=== PATIENT | male | born 1960 | race Two or more races ===

== ENCOUNTER → 2023-01-05 09:38 | Outpatient (BNVA) | payer MEDICARE, MEDICAID, SELFPAY | PROVIDERS: PCP Family Medicine; Visit Provider Internal Medicine | DX: G47.33 Obstructive sleep apnea (adult) (pediatric) (principal); E66.01 Morbid (severe) obesity due to excess calories; Z68.41 Body mass index [BMI] 40.0-44.9, adult; J98.4 Other disorders of lung; R06.09 Other forms of dyspnea | CPT/HCPCS: 99202 ==

== ENCOUNTER → 2023-02-03 12:29 | Outpatient (REF) | payer MEDICARE, MEDICAID, SELFPAY | LOC: HO.SL 12:29 | PROVIDERS: PCP Family Medicine; Visit Provider Internal Medicine | DX: G47.33 Obstructive sleep apnea (adult) (pediatric) (principal); E66.01 Morbid (severe) obesity due to excess calories | CPT/HCPCS: 95806 ==

== ENCOUNTER → 2023-03-04 10:35 | Outpatient (BNVA) | payer MEDICARE, MEDICAID, SELFPAY | PROVIDERS: PCP Family Medicine; Visit Provider Internal Medicine | DX: G47.33 Obstructive sleep apnea (adult) (pediatric) (principal); J98.4 Other disorders of lung; J30.9 Allergic rhinitis, unspecified; E66.01 Morbid (severe) obesity due to excess calories; Z68.41 Body mass index [BMI] 40.0-44.9, adult | CPT/HCPCS: 99212 ==

== ENCOUNTER 2023-05-06 09:37 | Outpatient (AMB) | payer MEDICARE, MEDICAID, SELFPAY ==
--- NOTE | 2023-05-06 09:38 | MHC.OFFVIS ---
Intake Vital Signs 05/06/23 09:39 Height 5 ft 6 in Weight 259 lb 0.69 oz BMI 41.8 BP 148/80 H Blood Pressure Location Lt brachial Position Sitting Pulse 69 Pulse Source Pulse Oximeter Pulse Oximetry (%) 93 Oxygen Delivery Method Room Air Intake Visit Reasons: Obstructive sleep apnea Intake Note: Pt reports having the flu as he tested negative for covid. He has a dry cough accompanied by chest pain but denies wheezing. He is currently taking NyQuil and Tamiflu. Allergies No Known Allergies Allergy (Verified 05/06/23 10:00) Medication List - Last Reconciled 05/06/23 by Cathie Murray MD albuterol sulfate 2.5 mg inhalation Q4-6H PRN amlodipine 5 mg PO DAILY aspirin (Adult Aspirin Regimen) 81 mg PO DAILY atorvastatin 10 mg PO BEDTIME fluticasone propionate 50 mcg/actuation (Flonase Allergy Relief) 1 spray intranasal BID losartan 100 mg PO DAILY Do you need a note to return to daycare/school/sports/work: No HPI Obstructive sleep apnea HPI Details THIS 63 YEARS OLD VERY PLEASANT GENTLEMAN IS HERE FOR FOLLOW-UP AFTER STARTING ON THE CPAP. HE HAS BEEN USING IT VERY REGULARLY BUT ONLY FOR 4-5 HOURS PER NIGHT. HE CLAIMS THAT HE IS DEFINITELY SLEEPING BETTER. HAS NO ISSUES WITH THE MASK. OR CPAP DEVICE CURRENTLY SUFFERING FROM FLU SYMPTOMS FOR THE LAST FEW DAYS AND HE IS ON SYMPTOMATIC TREATMENT, COVID TEST TURNED OUT TO BE NEGATIVE. HE DOES HAVE HISTORY OF ALLERGIC RHINITIS AND HAS USED FLONASE P.R.N. FOR NASAL ALLERGIES. DENIES ANY WHEEZING BUT DOES HAVE SOME COUGH AND IS USING [facility] Medical History (Updated 05/06/23 @ 10:05 by Cathie Murray MD) Allergic rhinitis PRAJAPATI (dyspnea on exertion) Morbid obesity RO (obstructive sleep apnea) Restrictive lung disease Social History Patient Tobacco Use Status: Former Tobacco user Review of Systems Const All systems reviewed & are unremarkable except as noted in HPI and below Eyes Reports no additional complaints ENT Reports nasal congestion (MILD INTERMITTENT) Card Denies irregular heart rhythm and Denies leg edema Resp Reports as per HPI GI Reports no additional complaints Reports no additional complaints Musc Reports no additional complaints Skin/Breast Reports system reviewed and no additional complaints, except as documented Neuro Reports no additional complaints Psych Reports no additional complaints Endo Reports no additional complaints Lalito/Lymph Reports no additional complaints Aller/Immun Reports no additional complaints Physical Exam Vital Signs: Last Vital Signs Pulse 69 05/06/23 09:39 BP 148/80 H 05/06/23 09:39 Pulse Ox 93 05/06/23 09:39 Oxygen Delivery Method Room Air 05/06/23 09:39 BMI result Body Mass Index 41.8 Const Other: He is grossly overweight General: comfortable, no acute distress, alert and awake Orientation/consciousness: patient oriented x3 HEENT Head: Yes normal to inspection General nose exam: No nasal polyps present, No nasal discharge present and Other nasal findings present (HAS MILD NASAL CONGESTION) Face and sinus: Yes sinuses nontender Mouth: oropharynx abnormals (Oropharynx is very narrow and crowded, Mallampati class 4) Throat: Yes posterior oropharynx normal Eyes General: appearance normal, both eyes and all related structures Neck Neck: Yes normal visual inspection, Yes no lymphadenopathy, Yes trachea midline, Yes no JVD and Yes other (Neck circumference 18-1/2 inch) Thyroid: Thyroid normal Chest Chest palpation & inspection: normal inspection of the chest, normal palpation of entire chest wall and no tenderness Resp Other: Chest wall is quite thick, percussion note is not very perceptible. Breath sounds are somewhat distant. But no wheezes crepitations or rhonchi are heard. Cardio Palpation: normal PMI Rate: regular rate Rhythm: regular rhythm Heart sounds: no gallops and no murmurs Peripheral pulses: Peripheral pulses 2+ throughout GI Palpation (GI): Soft to palpation, Tenderness to palpation present (GI), No hepatosplenomegaly present, Palpable mass present and Other GI palpation findings present (Abdomen is obese and protuberant) Auscultation: normal bowel sounds Back/Spine/Pelvis Thoracic/Lumbar Spine: thoracic and lumbar spine normal to inspection and thoraco-lumbar ROM limited Skin General skin exam: no rashes or lesions noted Neuro General: patient oriented x3 and no focal motor deficits Cranial nerves: Yes CN's II-XII intact bilaterally Extrem General: Yes normal to inspection, Yes no clubbing, cyanosis or edema and Yes no calf tenderness Psych Appearance: grossly normal and well kempt Speech and movement: Normal speech and movement present Results Reviewed Results Reviewed: COMPLIANCE REPORT REVIEWED AND HE HAS USED 27/30 NIGHTS, 90%. AVERAGE USE PER NIGHT IS 4 HOURS 23 MINUTES. 95TH PERCENTILE PRESSURE USED 9.6. NO AIR LEAK. RESIDUAL AHI 2.2 MUCH IMPROVED Assessment & Plan Assessment & Plan (1) RO (obstructive sleep apnea): Comment: PATIENT IS USING CPAP GOOD COMPLIANCE AND IS BENEFITING. ADVISED TO USE IT FOR 5-6 HOURS EVERY NIGHT. Code(s): G47.33 - Obstructive sleep apnea (adult) (pediatric) (2) Morbid obesity: Comment: BMI 41.8 HIS UNDERSTANDING ABOUT THE DIET AND EXERCISE IS POOR, AGAIN I EXPLAINED TO HIM ABOUT DIET, TO REDUCE THE USE OF CARBOHYDRATES AND TO CUT DOWN THE PORTION. I ALSO STRESS THAT HE SHOULD START WALKING UP TO 2 MILES EVERY DAY. Code(s): E66.01 - Morbid (severe) obesity due to excess calories (3) Allergic rhinitis: Comment: IT IS MILD AND SEEMS TO BE CONTROLLED WITH USE OF FLONASE 2 SPRAY EACH NOSTRIL DAILY CURRENTLY HE IS RECOVERING FROM ACUTE VIRAL. UPPER RESPIRATORY INFECTION Code(s): J30.9 - Allergic rhinitis, unspecified Coding Level of Care Code Est Pt Level 3 (96474) Diagnoses RO (obstructive sleep apnea) G47.33 Morbid obesity E66.01 Allergic rhinitis J30.9
[2023-05-06 09:39] VITALS: BP 148/80; PULSE 69; O2SAT 93; BMI 41.8
== END 2023-05-06 10:01 | disposition home or self-care (01) ==
PROVIDERS: PCP Family Medicine; Visit Provider Internal Medicine
DX: G47.33 Obstructive sleep apnea (adult) (pediatric) (principal); E66.01 Morbid (severe) obesity due to excess calories; J30.9 Allergic rhinitis, unspecified
CPT/HCPCS: 99213

== ENCOUNTER → 2023-05-06 09:37 | Outpatient (BNVA) | payer MEDICARE, MEDICAID, SELFPAY | PROVIDERS: PCP Family Medicine; Visit Provider Internal Medicine | DX: G47.33 Obstructive sleep apnea (adult) (pediatric) (principal); J30.9 Allergic rhinitis, unspecified; E66.01 Morbid (severe) obesity due to excess calories; Z68.41 Body mass index [BMI] 40.0-44.9, adult | CPT/HCPCS: 99212 ==

== ENCOUNTER 2023-11-12 11:03 | Outpatient (REF) | payer MEDICARE, MEDICAID, SELFPAY ==
--- NOTE | ~2023-11-12 | XR_ITS ---
EXAMINATION: XR CHEST CLINICAL INFORMATION: Cough for 6 weeks, rales and swelling COMPARISON: None available. TECHNIQUE: 2 views of the chest were obtained. FINDINGS: No significant abnormality is noted involving the heart, lungs, mediastinum, bony thorax or soft tissues. XR/XR chest 2V IMPRESSION: Unremarkable examination.
[2023-11-12 13:47] LABS: Alanine Aminotransferase 44 U/L (0-40); Albumin Level 4.4 g/dL (3.5-5.0); Alkaline Phosphatase 68 U/L (39-117); Anion Gap 12 (12-20); Aspartate Amino Transferase 23 U/L (5-37); Bilirubin Total 1.5 mg/dL (0.0-1.0); Blood Urea Nitrogen 12 mg/dL (9-16); Calcium 9.6 mg/dL (8.4-10.2); Carbon Dioxide 27 mmol/L (22-29); Chloride 105 mmol/L (96-108); Cholesterol 167 mg/dL (<200); Estimated Glomerular Filt Rate > 60; Glucose Random 123 mg/dL (60-115); HDL Cholesterol 37 mg/dL (>40); LDL Cholesterol Calculated 101 mg/dL (<100); Potassium 3.5 mmol/L (3.3-5.1); Sodium 140 mmol/L (135-145); Total Protein 7.9 g/dL (6.5-8.0); Triglycerides 147 mg/dL (<150)
[2023-11-12 14:09] LABS: TSH reflex Free T4 2.48 uIU/mL (0.32-4.0)
[2023-11-12 14:11] LABS: Reflex LDLD? No
== END 2023-11-12 11:04 | disposition home or self-care (01) ==
LOC: HO.HHCL 11:03
PROVIDERS: Visit Provider Family Medicine
DX: I10 Essential (primary) hypertension (principal); E78.5 Hyperlipidemia, unspecified; E66.01 Morbid (severe) obesity due to excess calories; R05.2 Subacute cough; Z68.41 Body mass index [BMI] 40.0-44.9, adult
CPT/HCPCS: 36415; 71046; 80053; 80061; 84443

== ENCOUNTER 2024-05-19 10:43 | Outpatient (REF) | payer MEDICARE, MEDICAID, SELFPAY ==
[2024-05-19 11:33] LABS: Appearance Urine Clear; Color Urine Yellow; Glucose Urine UA Negative (Negative); Leukocyte Esterase Urine Moderate (2+) (Negative); Nitrite Urine Positive (Negative); PH 6.5 (5.0-9.0); Specific Gravity - Urine 1.015 (1.005-1.025); UMIC TRIGGER UACC YES; Urine Blood Moderate (2+) (Negative); Urine Ketones Negative (Negative); Urine Protein Negative (Neg-Trace)
[2024-05-19 11:50] LABS: Bacteria Urine None Seen (None Seen); Hyaline Casts Urine 0-2 /LPF (0-2); Squamous Epithelial Cell Urine 0-2 /HPF (0-2); UACC Culture Trigger YES
[2024-05-19 12:20] LABS: Estimated Average Glucose 114 mg/dL; Hemoglobin A1c % 5.6 % (<6.0)
[2024-05-19 12:46] LABS: Alanine Aminotransferase 45 U/L (0-40); Albumin Level 4.4 g/dL (3.5-5.0); Alkaline Phosphatase 64 U/L (39-117); Aspartate Amino Transferase 21 U/L (5-37); Bilirubin Direct 0.3 mg/dL (0.0-0.5); Total Protein 7.5 g/dL (6.5-8.0)
[2024-05-19 12:58] LABS: Prostate Specific Antigen Scr 0.92 ng/mL (<0.05-4.0); ~HepC Num1 0.11 S/CO (0.00-0.79); ~Hepatitis C Antibody Nonreactive (Nonreactive)
[2024-05-19 13:00] LABS: Hepatitis A Antibody IgG REACTIVE (Nonreactive); ~Hepatitis A Antibody IgG 11.75 S/CO (0.00-0.99)
== END 2024-05-19 10:44 | disposition home or self-care (01) ==
LOC: HO.HHCL 10:43
PROVIDERS: Visit Provider Family Medicine
DX: R73.01 Impaired fasting glucose (principal); R74.8 Abnormal levels of other serum enzymes; R35.0 Frequency of micturition; Z12.5 Encounter for screening for malignant neoplasm of prostate
CPT/HCPCS: 36415; 80076; 81001; 83036; 84153; 86708; 86803; 87086

== ENCOUNTER 2024-06-06 09:16 | Outpatient (AMB) | payer MEDICARE, SELFPAY ==
--- NOTE | 2024-06-06 09:19 | A.OFFVIS_ITS ---
Vital Signs 06/06/24 09:23 Height 5 ft 6 in Weight 264 lb BMI 42.6 Intake Visit Reasons: Mass/Lipoma on back Intake Note: Patient referred by pcp Dr. Payne for lipoma on back. Patient c/o: reports pain. Technical Administrative Assistant Required: Yes Technical Administrative Assistant Language: Swedish Information Interpreted: non-clinical & clinical Accompanied by: Self / Same As Patient Allergies No Known Allergies Allergy (Verified 06/06/24 09:24) Medication List - Last Reconciled 06/06/24 by Dane Bernal MD albuterol sulfate 2.5 mg inhalation Q4-6H PRN amlodipine 5 mg PO DAILY aspirin (Adult Aspirin Regimen) 81 mg PO DAILY atorvastatin 10 mg PO BEDTIME fluticasone propionate 50 mcg/actuation (Flonase Allergy Relief) 1 spray intranasal BID losartan 100 mg PO DAILY HPI Comments Details: Patient presents for evaluation of right flank discomfort. He has had a lipoma in this area in the past and thinks he has an under lipoma. He has not felt a distinct mass per se but just has an area of discomfort in the right lateral flank/back. No other issues or complaints. As noted above, patient has had lipoma excisions in the past. In fact he has a lipoma of left forearm as well which you would like to have addressed. Chart was reviewed and patient evaluated [facility] Medical History Allergic rhinitis RO (obstructive sleep apnea) Restrictive lung disease PRAJAPATI (dyspnea on exertion) Morbid obesity Social History Patient Tobacco Use Status: Former Tobacco user Physical Exam Vital Signs: BMI result Body Mass Index 42.6 Back/Spine/Pelvis Other: Patient has a scar in the right lower flank area from prior lipoma excision. He has discomfort more superior and medial were he thinks he has an other lipoma although none was palpated. Patient is rather corpulent. Extrem Other: Patient has roughly 3 x 2 cm lipoma involving dorsal aspect of the left mid forearm. Assessment & Plan Assessment & Plan (1) Abdominal wall mass of right flank: Code(s): R19.00 - Intra-abdominal and pelvic swelling, mass and lump, unspecified site Category: Surgical (2) Lipoma of upper arm: Code(s): D17.20 - Benign lipomatous neoplasm of skin and subcutaneous tissue of unspecified limb Category: Surgical Plan Current plan is to obtain an ultrasound of the right flank area and direct further therapy based on these results. Patient will see me after this. We will also address his forearm lipoma at that time. All questions answered. Patient will see me as noted above or p.r.n.. Orders: Orders US drain soft tissue w imaging Today R19.00 - Intra-abdominal and pelvic swelling, mass and lump, unspecified site Coding Level of Care Code New Pt Level 4 (56882) Diagnoses Abdominal wall mass of right flank R19.00 Lipoma of upper arm D17.20
[2024-06-06 09:23] VITALS: BMI 42.6
== END 2024-06-06 09:43 | disposition home or self-care (01) ==
PROVIDERS: PCP Family Medicine; Visit Provider Surgery
DX: R19.00 Intra-abdominal and pelvic swelling, mass and lump, unspecified site (principal); D17.20 Benign lipomatous neoplasm of skin and subcutaneous tissue of unspecified limb
CPT/HCPCS: 99203

== ENCOUNTER → 2024-06-06 09:16 | Outpatient (BNVA) | payer MEDICARE, SELFPAY | PROVIDERS: PCP Family Medicine; Visit Provider Surgery | DX: R19.00 Intra-abdominal and pelvic swelling, mass and lump, unspecified site (principal); D17.22 Benign lipomatous neoplasm of skin and subcutaneous tissue of left arm | CPT/HCPCS: 99202 ==

== ENCOUNTER 2024-10-18 11:21 | Outpatient (REF) | payer MEDICARE, SELFPAY ==
--- NOTE | ~2024-10-18 | US_ITS ---
CLINICAL HISTORY: R19.00 - Intra-abdominal and pelvic swelling, mass and lump, unspecified... Exam: Ultrasound of the abdomen limited. Comparison: None. Findings: Patient has a palpable mass along the right flank. Focused ultrasound examination of this area was performed. Ultrasound demonstrates 2 adjacent rounded echogenic foci within the subcutaneous fat measuring 6 x 5 x 7 mm and 9 x 3 x 3 mm in size, respectively. No hyperemia. No significant posterior acoustic shadowing. Impression: Nonspecific rounded echogenic foci within the subcutaneous fat corresponding to the patient's palpable abnormality. These could represent areas of fat necrosis, scarring with calcification, or small lipomas. Continued attention on follow-up physical examination suggested. This document has been electronically signed by: Carlos Enrique Pham MD on 10/19/2024 05:40:56
== END 2024-10-18 11:22 | disposition home or self-care (01) ==
LOC: HO.US 11:21
PROVIDERS: PCP Family Medicine; Visit Provider Surgery
DX: R19.03 Right lower quadrant abdominal swelling, mass and lump (principal)
CPT/HCPCS: 76705

== ENCOUNTER → 2024-10-18 11:25 | Outpatient (BNV) | payer MEDICARE, SELFPAY | PROVIDERS: PCP Family Medicine; Visit Provider Radiology Diagnostic Radiology | DX: R19.00 Intra-abdominal and pelvic swelling, mass and lump, unspecified site (principal) | CPT/HCPCS: 76705 ==

== ENCOUNTER 2024-10-25 11:28 | Outpatient (AMB) | payer MEDICARE, SELFPAY ==
--- NOTE | 2024-10-25 11:30 | MHC.OFFVIS ---
Intake Visit Reasons: Discuss Abd/ US Intake Note: Patient here to discuss recent Abd US results. Patient c/o: lipoma on Rt lower back that causes pain as it has been enlarging. Abd US: 10-18-2024 Supervisor Cigarette Making Department Required: Yes Supervisor Cigarette Making Department Services: Supervisor Cigarette Making Department Present Accompanied by: Self / Same As Patient Allergies No Known Allergies Allergy (Verified 10/25/24 11:33) HPI Comments Details: Patient presents for follow-up status post ultrasound over suspicious area mid back. This confirmed clinical suspicion of a large lipoma. [facility] Medical History Allergic rhinitis RO (obstructive sleep apnea) Restrictive lung disease PRAJAPATI (dyspnea on exertion) Morbid obesity Social History Patient Tobacco Use Status: Former Tobacco user Physical Exam Back/Spine/Pelvis Other: Back exam is status quo. Right mid back fullness is confirmed to be lipoma by recent ultrasound Assessment & Plan Assessment & Plan (1) Lipoma of back: Code(s): D17.1 - Benign lipomatous neoplasm of skin and subcutaneous tissue of trunk Category: Surgical Plan Patient was like to have this excised. Because of other obligations, he would like to reschedule this to have it performed in the office. Arrangements were made for this. All questions answered. See me as directed or p.r.n.. Coding Level of Care Code Est Pt Level 4 (34285) Diagnoses Lipoma of back D17.1
--- OUTSIDE RECORDS SUMMARY | 2024-10-25 12:44 | XMS_ITS | Encounter Summary ---
Author Organization [facility] Address [address] [facility] [address] [place] [address] Care Team Providers Care Community Living Specialist Name Role Phone Phylicia Payne MD Primary Care Provider [phone] Jt Vazquez PharmD Unavailable [phone] Encounter Details Date Type Department Care Team (Late st Contact Info) Description 05/25/2024 Orders Only [facility] [address], [place] [phone] Phylicia Payne MD [address], [place] [phone] Hematuria, unspecified type (Primary Dx); Pyuria; Essential hypertension Social History Tobacco Use Types Packs/Day Years Used Date Smoking Tobacco: Former Cigarettes Passive Smoke Exposure: Past Smokeless Tobacco: Never Depression Answer Date Recorded Patient Health Questionnaire-9 Score 0 05/19/2024 Patient Health Questionnaire-9 Score 0 05/19/2024 Last PHQ-9: Questionnaire Data Not on file 0 05/19/2024 Housing Stability Answer Date Recorded What is your housing situation today? I have supa mclean 02/09/[address] you li ve. Do you have problems with any of the following? None of the above 02/09/2024 Food Insecurity Answer Date Recorded Within the past 12 months, y ou worried that your food would run out before you got money to buy more: Never True 02/09/2024 Within the past 12 months,th e food you bought just didn't last and you didn't have enough money to get more: Never True Transportation Answer Date Recorded In the past 12 months, has l ack of transportation kept you from medical appts, meetings, work or from getting things needed for daily living? No 02/09/2024 Utilities Answer Date Recorded In the past 12 months, has t he electric, gas, oil or water company threatened to shut off services in your home? No 02/09/2024 Depression Answer Date Recorded Patient Health Questionnaire-2 Score 0 05/19/2024 Sex and Gender Information Value Date Recorded Sex Assigned at Male 07/28/2022 10:18 AM EDT Legal Sex Male 10:18 AM EDT Gender Identity Male 07/28/2022 10:18 AM EDT Sexual Orientation Straight 07/28/2022 10 :18 AM EDT documented as of this encounter Plan of Treatment Scheduled Orders Name Type Priority Associated Diagnoses Orde r Schedule Albumin, Random Urine W/Creatinine Lab Routine Essential hypertension Expected: 05/25/2024 (Approximate), Expires: 05/25/2025 Urinalysis, Complete, with Reflex to Culture Lab Routine Hematuria, unspecified type Pyuria Expected: 05/25/2024 (Approximate), Expires: 05/25/2025 documented as of this encounter Goals Goal Patient Goal Type Associated Problems Recent Progress Patient-Stated? Author Blood Pressure < 150/90 Blood Pressure 158/99(2023 9:53 AM EDT) No Jt Vazquez, Alyce Note: Per JNC-8 62 year old patient without DM or CKD documented as of this encounter Visit Diagnoses Diagnosis Hematuria, unspecified type- Primary Pyuria Other nonspecific finding on examination of urine Essential hypertension Unspecified essential hypertension documented in this encounter Additional Health Concerns Assessment Noted Time PHQ-9 Depression Total Score: 0 05/19/20 24 10:03 AM EDT documented as of this encounter Care Teams Community Living Specialist Relationship Specialty Start Date End Date Phylicia Payne MD [address] [place] [address] PCP - General Family Medicine 09/28/18 Jt Vazquez, ShaiD [address] [place] [address] Pharmacist Internal Medicine 01/26/23 documented as of this encounter
--- OUTSIDE RECORDS SUMMARY | 2024-10-25 12:44 | XMS_ITS | Encounter Summary ---
Author Organization [facility] Address [address] [facility] [address] [place] [address] Care Team Providers Care [place] [place] Name Role Phone Phylicia Payne MD Primary Care Provider [phone] Jt Vazquez PharmD Unavailable [phone] Reason for Visit * Reason Comments Med Refill Encounter Details Date Type Department Care Team (Late st Contact Info) Description 02/19/2024 Refill [facility] [address] [place], [place] [phone] Phylicia Payne MD [address], [place] [phone] Dyslipidemia Social History Tobacco Use Types Packs/Day Years Used Date Smoking Tobacco: Former Cigarettes Passive Smoke Exposure: Past Smokeless Tobacco: Never Depression Answer Date Recorded Patient Health Questionnaire-9 Score 0 02/09/2024 Patient Health Questionnaire-9 Score 0 02/09/2024 Last PHQ-9: Questionnaire Data Not on file 0 02/09/2024 Housing Stability Answer Date Recorded What is [...] Date Recorded Patient Health Questionnaire-2 Score 0 02/09/2024 Sex and Gender Information Value Date Recorded Sex Assigned at Male 07/28/2022 10:18 AM EDT Legal Sex Male 10:18 AM EDT Gender Identity Male 07/28/2022 10:18 AM EDT Sexual Orientation Straight 07/28/2022 10 :18 AM EDT documented as of this encounter Plan of Treatment Not on file documented as of this encounter Goals Goal Patient Goal Type Associated Problems Recent Progress Patient-Stated? Author Blood Pressure < 150/90 Blood Pressure 158/99(2023 9:53 AM EDT) No Jt Vazquez, Alyce Note: Per JNC-8 62 year old patient without DM or CKD documented as of this encounter Visit Diagnoses Diagnosis Dyslipidemia Other and unspecified hyperlipidemia documented in this encounter Additional Health Concerns Assessment Noted Time PHQ-9 Depression Total Score: 0 02/09/20 24 10:12 AM EDT documented as of this encounter Care Teams [employer] [place] Relationship Specialty Start Date End Date Phylicia Payne MD [address] [place] [address] PCP - General Family Medicine 09/28/18 Jt Vazquez, Alyce [address] [place] [address] Pharmacist Internal Medicine 01/26/23 documented as of this encounter
--- OUTSIDE RECORDS SUMMARY | 2024-10-25 12:44 | XMS_ITS | Clinical Summary ---
Author Organization [facility] Address [address] [place] [address] Care Team Providers Care Redipper Name Role Phone Phylicia Payne MD Primary Care Provider [phone] Jt Vazquez PharmD Unavailable [phone] Allergies Active Allergy Reactions Criticality Noted Date Comments Jordan Inhibitors 09/26/2010 Other reaction(s): unspecified Medications albuterol (2.5 MG/3ML) 0.083% nebulizer solutionIndicatio ns:Moderate persistent asthma without complication Take 1 vial by nebulizer every 4 hours as needed for difficulty breathing 75 mL 3 3 Active aspirin 81 MG EC tablet Purchases OTC - 1 tablet daily Active albuterol 108 (90 Base) MCG/ACT inhalerIndication s:Moderate persistent asthma without complication Inhale 2 puffs every 4 (four) hours if needed for wheezing or shortness of breath. 18 g 1 4 Active budesonide-formot alem (Symbicort) 160-4.5 MCG/ACT inhaler Inhale 2 puffs in the morning and at bedtime. Rinse mouth with water after use to reduce aftertaste and incidence of candidiasis. Do not swallow. 1 each 11 4 11/11/19 25 Active atorvastatin (Lipitor) 10 MG tabletIndications :Dyslipidemia Take 1 tablet by mouth at bedtime 90 tablet 3 4 Active losartan (Cozaar) 100 MG tabletIndications :Essential hypertension TAKE 1 TABLET BY MOUTH ONCE DAILY 90 tablet 3 4 Active torsemide (Demadex) 10 MG tablet Take 1 tablet (10 mg) by mouth Once per day. 90 tablet 3 4 05/19/20 25 Active amLODIPine (Norvasc) 5 MG tabletIndications :Essential hypertension TAKE 1 Tablet BY MOUTH EVERY DAY 90 tablet 3 4 Active Active Problems Problem Noted Date Diagnosed Date Mass on back 05/19/2024 Assessment & Plan (05/19/2024 10:38 AM EDT): - history of multiple lipoma - will refer to general surgeon for excisional biopsy BPPV (benign paroxysmal positional vertigo) 06/28 Vertigo 06/08/2023 Assessment & Plan (07/09/2023 9:20 AM EDT): - BPPV - improved Assessment & Plan (06/08/2023 6:48 PM EDT): Pt w symptoms of vertigo Here + [place] c[place] pick maneuver today w normal neuro exam -CT head w/o contrast 04/2023: unchanged small area of exostosis at right frontal calvarium , minimal mucosal thickening of ethmoid air cells ,ophthalmic prominent veins , no acute intracranial pathology -CTA Head and neck 04/2023: no proximal occlusion or high grade stenosis in The major arteries of head and neck -Orthostatic VS are neg and normal BP -CBG is wnl today -noted from recent labs done at hospital on 04/2023 Had wnl chem and CBC -referred today to ophthalmology for noted in CT scan dilated ophthalmic vein - but w normal CTA head and neck -referred today to ENT for ongoing symptoms and tinnitus reported as chronic and TM with chronic changes -referred today to PT for vestibular tx -discussed w pt about head exercises -Gianna maneuvers to do at home -showed pt how to perform with a video -Meclizine prn -alarm signs and symptoms discussed and if symptoms persist will consider brain MRI Dyslipidemia 10/28/2022 Assessment & Plan (02/09/2024 10:16 AM EDT): -12/30/22 TC 156; TG 123; HDL 42; LDL 92 -Current medication: Atorvastatin 10mg at bedtime (moderate intensity statin per guideline) -continue working on lifestyle modifications prn Assessment & Plan (11/14/2023 7:08 AM EST): -12/30/22 TC 156; TG 123; HDL 42; LDL 92 -Current medication: Atorvastatin 10mg at bedtime (moderate intensity statin per guideline) -continue working on lifestyle modifications prn Assessment & Plan (07/09/2023 9:22 AM EDT): -12/30/22 TC 156; TG 123; HDL 42; LDL 92 -Current medication: Atorvastatin 10mg/QHS. -continue working on lifestyle modifications prn Assessment & Plan (10/28/2022 4:13 PM EST): -11/03/19: TC 178 TG 95 HDL 42 LDL 117. -Current medication: Atorvastatin 10mg/QHS. -will continue current treatment for now. -Atorvastatin may be increased if HTN, T2DM become uncontrolled. Essential hypertension 08/07/2015 Assessment & Plan (05/19/2024 10:36 AM EDT): -Goal BP < 150/90 per JNC-8, <130/80 per ACC/AHA -Co-managed with our pharmacist through [facility] -BP not at goal today -EKG normal in Aug 2017. -ACS work-up negative in Aug 2017 at [facility]. -Normal stress test in Oct 2017 -Currently using CPAP for RO. -Discussed about the importance of lifestyle modification and medication adherence. -Check BP at home -Continue losartan 100 mg daily. -Decrease amlodipine to 5 mg daily due to leg edema -Increase torsemide to 10 mg daily -Continue ASA 81 mg daily -Follow up in 3 mo or sooner if any problem arises Assessment & Plan (02/09/2024 10:32 AM EDT): -Goal BP < 150/90 per JNC-8, <130/80 per ACC/AHA -Co-managed with our pharmacist through [facility] -BP not at goal today -EKG normal in Aug 2017. -ACS work-up negative in Aug 2017 at [facility]. -Normal stress test in Oct 2017 -Currently using CPAP for RO. -Discussed about the importance of lifestyle modification and medication adherence. -Check BP at home -Continue losartan 100 mg daily. -Continue amlodipine 10 mg daily (mild side effect, but tolerable) -Continue torsemide 5 mg daily, recommended to increase to 10 mg daily if his systolic BP at home is persistently above 140 -Continue ASA 81 mg daily -Follow up in 3 mo or sooner if any problem arises Assessment & Plan (11/14/2023 7:05 AM EST): -Goal BP < 150/90 per JNC-8, <130/80 per ACC/AHA -Co-managed with our pharmacist through [facility] -BP not at goal today -EKG normal in Aug 2017. -ACS work-up negative in Aug 2017 at [facility]. -Normal stress test in Oct 2017 -Currently using CPAP for RO. -Discussed about the importance of lifestyle modification and medication adherence. -Check BP at home -Continue losartan 100 mg daily. -Continue amlodipine 10 mg daily (mild side effect, but tolerable) -Add torsemide 5 mg daily -Continue ASA 81 mg daily -Follow up in 3 mo or sooner if any problem arises Assessment & Plan (07/09/2023 9:06 AM EDT): -Goal BP < 150/90 per JNC-8, <130/80 per ACC/AHA -BP not at goal today -EKG normal in Aug 2017. -ACS work-up negative in Aug 2017 at [facility]. -Normal stress test in Oct 2017 -Currently using CPAP for RO. -Discussed about the importance of lifestyle modification and medication adherence. -Check BP at home -Continue losartan 100 mg daily. -Continue amlodipine 5 mg daily. -Consider increasing amlodipine or diuretic. -Continue ASA 81 mg daily -Referred to [facility] -Follow up in 3 mo or sooner if any problem arises Assessment & Plan (11/08/2022 7:07 AM EST): -Goal BP < 150/90 per JNC-8, <130/80 per ACC/AHA -BP not at goal today -EKG normal in Aug 2017. -ACS work-up negative in Aug 2017 at [facility]. -Normal stress test in Oct 2017 -Undertreated RO. -Discussed about the importance of lifestyle modification and medication adherence. -discussed about increasing Losartan today, but patient chose to try lifestyle modifications before. -Check BP at home -Continue losartan 100 mg daily. -Continue amlodipine 5 mg daily. -Continue ASA 81 mg daily -Refer to [facility] -Follow up in 3 mo or sooner if any problem arises Asthma 08/07/2015 Assessment & Plan (05/19/2024 10:16 AM EDT): -Last exacerbation requiring steroid use in September 2014, treated outpatient with prednisone -no Hx intubation, -RO -Reviewed maintenance medication and rescue medication. -Discontinue Flovent HFA 220 mcg -Start budesonide / formoterol (Symbicort) -Continue albuterol HFA prn as rescue. -Continue albuterol nebulizer treatment since pt feels better with nebulizer treatment -Overall, his dyspnea seems to be due to untreated RO -Statistics Professor is planning to evaluate him with PFT Assessment & Plan (02/09/2024 10:15 AM EDT): -Last exacerbation requiring steroid use in September 2014, treated outpatient with prednisone -no Hx intubation, -RO -Reviewed maintenance medication and rescue medication. -Discontinue Flovent HFA 220 mcg -Start budesonide / formoterol (Symbicort) -Continue albuterol HFA prn as rescue. -Continue albuterol nebulizer treatment since pt feels better with nebulizer treatment -Overall, his dyspnea seems to be due to untreated RO -Statistics Professor is planning to evaluate him with PFT Assessment & Plan (11/14/2023 7:04 AM EST): -Last exacerbation requiring steroid use in September 2014, treated outpatient with prednisone -no Hx intubation, -RO -Reviewed maintenance medication and rescue medication. -Discontinue Flovent HFA 220 mcg -Start budesonide / formoterol (Symbicort) -Continue albuterol HFA prn as rescue. -Continue albuterol nebulizer treatment since pt feels better with nebulizer treatment -Overall, his dyspnea seems to be due to untreated RO -Statistics Professor is planning to evaluate him with PFT Assessment & Plan (07/09/2023 9:04 AM EDT): -Last exacerbation requiring steroid use in September 2014, treated outpatient with prednisone -no Hx intubation, -RO -Reviewed maintenance medication and rescue medication. -Continue Flovent HFA 220 mcg one puff bid as maintenance. -Continue albuterol HFA prn as rescue. -Continue albuterol nebulizer treatment since pt feels better with nebulizer treatment -Overall, his dyspnea seems to be due to untreated RO -Statistics Professor is planning to evaluate him with PFT Assessment & Plan (11/08/2022 7:05 AM EST): -Last exacerbation requiring steroid use in September 2014, treated outpatient with prednisone -no Hx intubation, -RO -Reviewed maintenance medication and rescue medication. -Continue Flovent HFA 220 mcg one puff bid as maintenance. -Continue albuterol HFA prn as rescue. -Add albuterol nebulizer treatment since pt feels better with nebulizer treatment -Overall, his dyspnea seems to be due to untreated RO -refer to sleep medicine clinic or customs compliance specialist Osteoarthritis of finger 12/28/2014 Tubular adenoma of colon 08/07/2014 Assessment & Plan (11/14/2023 7:07 AM EST): Found in July 2014. Normal in July 2018. Recommended repeat colonoscopy every 5 years. Assessment & Plan (07/09/2023 9:19 AM EDT): Found in July 2014. Normal in July 2018. Recommended repeat colonoscopy every 5 years. Assessment & Plan (10/28/2022 4:18 PM EST): Found in July 2014. Normal in July 2018. Recommended repeat colonoscopy every 5 years. Allergic rhinitis 06/08/2012 Impaired fasting glucose 06/08/2012 Assessment & Plan (05/19/2024 10:17 AM EDT): -12/30/22 A1C 5.6% -Annual screening. -Work on lifestyle modifications. Assessment & Plan (02/09/2024 10:16 AM EDT): -12/30/22 A1C 5.6% -Annual screening. -Work on lifestyle modifications. Assessment & Plan (11/14/2023 7:07 AM EST): -12/30/22 A1C 5.6% -Annual screening. -Work on lifestyle modifications. Assessment & Plan (07/09/2023 9:20 AM EDT): -12/30/22 A1C 5.6% -Annual screening. -Work on lifestyle modifications. Assessment & Plan (10/28/2022 4:14 PM EST): -A1C: 5.6% on 11/03/19. -Annual screening. -Work on lifestyle modifications. Obesity 06/08/2012 Assessment & Plan (05/23/2024 6:09 AM EDT): - lifestyle modifications - consider GLP-1 RA Obstructive sleep apnea syndrome 06/08/2012 Assessment & Plan (05/19/2024 10:16 AM EDT): -sleep study done in Apr 2017, which showed RO and recommended CPAP titration study. -sleep study and CPAP titration study done in May 2018, pressure 13 cm recommended -seen by stone sawyer and was prescribed CPAP again, autoPAP 6-20 cm H2O, last seen in Apr 2023 -continue treatment plan per stone sawyer Assessment & Plan (02/09/2024 10:15 AM EDT): -sleep study done in Apr 2017, which showed RO and recommended CPAP titration study. -sleep study and CPAP titration study done in May 2018, pressure 13 cm recommended -seen by stone sawyer and was prescribed CPAP again, autoPAP 6-20 cm H2O, last seen in Apr 2023 -continue treatment plan per stone sawyer Assessment & Plan (11/14/2023 7:03 AM EST): -sleep study done in Apr 2017, which showed RO and recommended CPAP titration study. -sleep study and CPAP titration study done in May 2018, pressure 13 cm recommended -seen by stone sawyer and was prescribed CPAP again, autoPAP 6-20 cm H2O, last seen in Apr 2023 -continue treatment plan per stone sawyer Assessment & Plan (07/09/2023 9:03 AM EDT): -sleep study done in Apr 2017, which showed RO and recommended CPAP titration study. -sleep study and CPAP titration study done in May 2018, pressure 13 cm recommended -seen by stone sawyer and was prescribed CPAP again, autoPAP 6-20 cm H2O, last seen in Apr 2023 -continue treatment plan per stone sawyer Assessment & Plan (11/08/2022 7:04 AM EST): -sleep study done in Apr 2017, which showed RO and recommended CPAP titration study. -sleep study and CPAP titration study done in May 2018, pressure 13 cm recommended -Pt received CPAP for short term, but had to pay for aditional monthly use. -will refer to sleep medicine clinic Resolved Problems Problem Noted Date Diagnosed Date Resolved Date Asthma 06/08/2012 11/08/2022 Encounters Date Type Department Care Team Description 10/18/2024 Orders Only [facility] External Provider, [facility] 08/08/2024 Telephone [facility] [address] [place] [address] Diane Vasquez [place] august recall from Last 3 Months Immunizations Name Administration Dates Next Due Hep B, Adolescent or Pediatric 05/14/2010,2006,09/25/2006 Influenza Injectable Quadriv alant Preservative Free IIV4 MDCK 06/18/2023,08/31/2020 Influenza injectable quadriv alent IIV4 with preservative 08/07/2015 Influenza injectable quadriv alent preservative free 10/28/2022,08/11/2019 Influenza, IIV3, injectable 07/24/2014, 1 Influenza, Split (incl. gogo fied surface antigen) 06/10/2013,06/08/2012 Pfizer Covid-19 Vaccine 12+ 02/09/2024 Pneumococcal Conjugate PCV 20 03/02/2023 Pneumococcal Polysaccharide PPSV23 05/14/2010 TD (adult), 2 Lf tetanus tox oid, preservative free, adsorbed 11/28/2008 Tdap 07/07/2023,11/28/2011 Zoster, Recombinant 06/18/2023,03/02/2023 Social History Tobacco Use Types Packs/Day Years Used Date Smoking Tobacco: Former Cigarettes Passive Smoke Exposure: Past Smokeless Tobacco: Never Tobacco Cessation:Counseling Given: Not Answered Depression Answer Date Recorded Patient Health Questionnaire-9 [...] Orientation Straight 07/28/2022 10 :18 AM EDT Last Filed Vital Signs Vital Sign Reading Time Taken Comments Blood Pressure 158/99 05/19/2024 9:53 AM EDT Pulse 80 05/19/2024 9:53 AM EDT Temperature 36.4 ??C (97.6 ??F) 05/19/2024 9:53 AM ED T Respiratory Rate 20 05/19/2024 9:53 AM EDT Oxygen Saturation 98% 02/09/2024 10:11 AM EDT Inhaled Oxygen Concentration - - Weight 123 kg (270 lb 3.2 oz) 05/19/2024 9:53 AM EDT Height 167.6 cm (5' 6 ) 05/19/2024 9:53 AM EDT Body Mass Index 43.61 05/19/2024 9:53 AM EDT Plan of Treatment Health Maintenance Due Date Last Done Comments CT Colonography 1962 Colonoscopy 1962 Colorectal Cancer Screening 1960 FIT DNA/Cologuard 1962 FIT 1962 FOBT 1960 HIV Screening 1960 Sigmoidoscopy 1960 Alcohol/Substance Use Screening 1974 RSV Patients and Patients Aged 60 years or older (1 - Risk 60-74 years 1-dose series) 2022 COVID-19 Vaccine ( season) 2024 02/09/2024, 05/12/2022, 02/07/2021, Additional history exists Influenza Vaccine (#1) 2024 , 10/28/2022, 08/31/2020, Additional history exists SDOH Screening 02/08/2025 02/09/2024 Depression Screening 05/19/2025 05/19/2024, 05/19/20 24 Tobacco Screening 05/19/2025 05/19/2024 Lipid Panel 11/12/2028 11/12/2023, 12/30/2022 DTaP/Tdap/Td Vaccines (3 - Td or Tdap) 07/07/2033 07/07/2023, 11/28/2011, 11/28/2008 Hepatitis B Vaccines Aged Out 05/14/2010, 11/30/2006, 09/25/2006 No longer eligible based on patient's age to complete this topic Pneumococcal Vaccine: Pediatrics (0 to 5 Years) and At-Risk Patients (6 to 64 Years) Completed 03/02/2023, 05/14/2010 Zoster Vaccines Completed 06/18/2023, 03/02/2023 Hepatitis C Screening Completed 05/19/2024, 020 HIB Vaccines Aged Out No longer eligi ble based on patient's age to complete this topic HPV Vaccines Aged Out No longer eligi ble based on patient's age to complete this topic Hepatitis A Vaccines Aged Out No long er eligible based on patient's age to complete this topic IPV Vaccines Aged Out No longer eligi ble based on patient's age to complete this topic Meningococcal Vaccine Aged Out No rola jose eligible based on patient's age to complete this topic RSV under 20 months Aged Out No longe r eligible based on patient's age to complete this topic Rotavirus Vaccines Aged Out No longer eligible based on patient's age to complete this topic Goals Goal Patient Goal Type Associated Problems Recent Progress Patient-Stated? Author Blood Pressure < 150/90 Blood Pressure 158/99(2023 9:53 AM EDT) Jt Garcia, PharmD Note: Per JNC-8 62 year old patient without DM or CKD Procedures Procedure Name Priority Date/Time Associated Diagnosis Comments US ABDOMEN LIMITED Routine 10/19/2024 5: 40 AM EST HEPATITIS C AB W/REFL TO HCV RNA, QN, PCR Routine 05/19/2024 10:50 AM EDT Abnormal AST and ALT LIPID PANEL WITH REFLEX TO DIRECT LDL Routine 11/12/2023 11:10 AM EST Dyslipidemia from Last 3 Months or Most Recently Relevant to Health Maintenance Results * US Abdomen Limited (10/19/2024 5:40 AM EST) Anatomical Region Laterality Modality Abdomen Ultrasound 10/19/2024 5:40 AM EST Narrative 10/19/2024 5:42 AM EST ? [facility] ?[address] ?[place] [address] ? Ultrasound Report ? Signed ? Patient: Robert Love,Rodri L ?MR#: ?? [id number] ? : 1960 ?Acct:[id number] ? Age/Sex: 64 / M ?ADM Date: /21/25 ? Loc: HO.US ? Attending Dr: Dane Bernal MD ? Ordering Physician: Dane Bernal MD ?? Date of Service: 10/18/24 ?? Procedure(s): US abdomen limited ?? Accession Number(s): [id number] ? cc: Dane Bernal MD; Phylicia Payne MD ? CLINICAL HISTORY: R19.00 - Intra-abdominal and pelvic swelling, mass and lump, unspecified... ? Exam: Ultrasound of the abdomen limited. ? Comparison: None. ? Findings: ? Patient has a palpable mass along the right flank. Focused ultrasound ?? examination of this area was performed. ?? Ultrasound demonstrates 2 adjacent rounded echogenic foci within the ?? subcutaneous fat measuring 6 x 5 x 7 mm and 9 x 3 x 3 mm in size, ?? respectively. ?? No hyperemia. ?? No significant posterior acoustic shadowing. ? Impression: ? Nonspecific rounded echogenic foci within the subcutaneous fat ?? corresponding to the patient's palpable abnormality. These could represent ?? areas of fat necrosis, scarring with calcification, or small lipomas. ?? Continued attention on follow-up physical examination suggested. ? This document has been electronically signed by: Carlos Enrique Pham MD on ?? 10/19/2024 05:40:56 ? Dictated By: ?Carlos Enrique Pham MD ? Signed By: ?<Electronically signed by Carlos Enrique Pham MD in [place]> ? 10/19/24 0542 ? DD/ 0540 ? TD/TT: 10/19/24 0540 ? Maintenance Worker Swimming Pool: ? Procedure Note Tessa, Kell - 10/19/2024 [place] [id number] Ultrasound Report Signed Patient: Rodri Yeager LMR#: [id number] : 1960cct:[id number] Age/Sex: 64 / MADM Date: 10/18/24 Loc: HO.US Attending Dr: Dane Bernal MD Ordering Physician: Dane Bernal MD Date of Service: 10/18/24 Procedure(s): US abdomen limited Accession Number(s): [id number] cc: Dane Bernal MD; Phylicia Payne MD CLINICAL HISTORY: R19.00 - Intra-abdominal and pelvic swelling, mass andlump, unspecified... Exam: Ultrasound of the abdomen limited. Comparison: None. Findings: Patient has a palpable mass along the right flank. Focused ultrasound examination of this area was performed. Ultrasound demonstrates 2 adjacent rounded echogenic foci within the subcutaneous fat measuring 6 x 5 x 7 mm and 9 x 3 x 3 mm in size, respectively. No hyperemia. No significant posterior acoustic shadowing. Impression: Nonspecific rounded echogenic foci within the subcutaneous fat corresponding to the patient's palpable abnormality. These could represent areas of fat necrosis, scarring with calcification, or small lipomas. Continued attention on follow-up physical examination suggested. This document has been electronically signed by: Carlos Enrique Pham MD on 10/19/2024 05:40:56 Dictated By: Carlos Enrique Pham MD Signed By: <Electronically signed by Carlos Enrique Pham MD in OV> 10/19/24541 DD/ 9 TD/TT: 10/19/24539 Maintenance Worker Swimming Pool: [facility] External Provider IMG US PROCEDURES Final Result * Hepatitis C Antibody with Reflex to HCV, RNA, Quantitative, Real-Time PCR (05/19/2024 10:50 AM EDT) Hepatitis C Antibody Nonreactive Nonreactive [facility] Comment:Antibodies to HCV no t detected; does not exclude early acuteHCV infection. Blood Venous blood specimen / Unknown 05/19/2024 10:50 AM EDT 05/19/2024 11:45 AM EDT Phylicia Payne MD LAB BLOOD ORDERABLES Final Resul t [facility] [address] [place] [phone] * (ABNORMAL) Lipid Panel with Reflex to Direct LDL (11/12/2023 11:10 AM EST) Triglycerides 147 <150 mg/dL [facility] Comment:Desirable Triglyceri de: less than 150 mg/dLBorderline High Triglyceride 150-199 mg/dLHigh Triglyceride: 200-499 mg/dLVery High Triglyceride: greater than or equal to 5OO mg/dL Cholesterol 167 <200 mg/dL [facility] Comment:Desirable Cholestero l: less than 200 mg/dLBorderline High Cholesterol: 200-239 mg/dLHigh Cholesterol: greater than 239 mg/dL LDL Cholesterol Calculated 101(H) <100 mg/dL [facility] Comment:Desirable LDL: less than 100 mg/dLNear Optimal/Above Optimal LDL: 110- 129 mg/dLBorderline High LDL: 130-159 mg/dLHigh LDL: 160-189 mg/dLVery High LDL: greater than or equal to 190 mg/dL HDL Cholesterol 37(L) >40 mg/dL [facility] Comment:Desirable HDL: great er than 40 mg/dL Note: This HDL assay may give artificially low results in patients with liver disease. Blood 11/12/2023 11:1 0 AM EST 11/12/2023 1:06 PM EST us Phylicia Payne MD LAB BLOOD ORDERABLES Final Resul t [facility] [address] [place] [phone] from Last 3 Months or Most Recently Relevant to Health Maintenance Insurance [place] [phone] Care Teams Redipper Relationship Specialty Start Date End Date Phylicia Payne MD [address] [place] [address] PCP - General Family Medicine 09/28/18 Jt Vazquez, ShaiD [address] [place] [phone] Pharmacist Internal Medicine 01/26/23
--- OUTSIDE RECORDS SUMMARY | 2024-10-25 12:44 | XMS_ITS | Encounter Summary ---
Author Organization [employer] Address [address] [facility] 7t [place] [address] Care Team Providers Care Degree Clerk Name Role Phone Phylicia Payne MD Primary Care Provider Jt Vazquez PharmD Unavailable [phone] Encounter Details Date Type Department Care Team (Late st Contact Info) Description 10/18/2024 Orders Only [facility] External Provider, [facility] Social History Tobacco Use Types Packs/Day Years [...] 158/99(2023 9:53 AM EDT) No Jt Vazquez, PharmD Note: Per JNC-8 62 year old patient without DM or CKD documented as of this encounter Procedures Procedure Name Priority Date/Time Associated Diagnosis Comments US ABDOMEN LIMITED Routine 10/19/2024 5: 40 AM EST documented in this encounter Results * US Abdomen Limited (10/19/2024 5:40 AM EST) Anatomical Region Laterality Modality Abdomen Ultrasound 10/19/2024 5:40 AM EST Narrative 10/19/2024 5:42 AM EST ? [facility] ?[address] ?[place] [address] ? Ultrasound Report ? Signed ? Patient: Rodri Yeager ?MR#: ?? [id number] ? : 1960 ?Acct:[id number] ? Age/Sex: 64 / M ?ADM Date: 10/18/24 ? Loc: HO.US ? Attending Dr: Dane Bernal MD ? Ordering Physician: Dane Bernal MD ?? Date of Service: 10/18/24 ?? Procedure(s): US abdomen limited ?? Accession Number(s): [id number] ? cc: Dane Bernal MD; Phylicia Payne [...] DD/ 0540 ? TD/TT: 10/19/24 0540 ? Golf Ball Molder: ? Procedure Note Ckmontezcbabelino, Image - 10/19/2024 [place] [address] Ultrasound Report Signed Patient: Rodri Yeager LMR#: [id number] : 1960cct:[id number] Age/Sex: 64 / MADM Date: 10/18/24 Loc: HO.US Attending Dr: Dane Bernal MD Ordering Physician: Dane Bernal MD Date of Service: 10/18/24 Procedure(s): US abdomen limited Accession Number(s): [id number] cc: Dane Bernal MD; Phylicia Payne MD [...] by Carlos Enrique Pham MD in OV> 10/19/2442 DD/ TD/TT: 10/19/24539 Golf Ball Molder: [facility] External Provider IMG US PROCEDURES Final Result documented in this encounter Visit Diagnoses Not on filedocumented in this encounter Additional Health Concerns Assessment Noted Time PHQ-9 Depression Total Score: 0 05/19/20 24 10:03 AM EDT documented as of this encounter Care Teams Degree Clerk Relationship Specialty Start Date End Date Phylicia Payne MD [address] [place] [address] PCP - General Family Medicine 09/28/18 Jt Vazquez, PharmD [address] [place] [id number] Pharmacist Internal Medicine 01/26/23 documented as of this encounter
== END 2024-10-25 11:39 | disposition home or self-care (01) ==
PROVIDERS: PCP Family Medicine; Visit Provider Surgery
DX: D17.1 Benign lipomatous neoplasm of skin and subcutaneous tissue of trunk (principal)
CPT/HCPCS: 99214

== ENCOUNTER → 2024-10-25 11:28 | Outpatient (BNVA) | payer MEDICARE, SELFPAY | PROVIDERS: PCP Family Medicine; Visit Provider Surgery | DX: D17.1 Benign lipomatous neoplasm of skin and subcutaneous tissue of trunk (principal) | CPT/HCPCS: 99212 ==

== ENCOUNTER 2024-10-31 09:37 | Outpatient (REF) | payer MEDICARE, SELFPAY ==
--- NOTE | ~2024-10-31 | XR_ITS ---
EXAMINATION: XR CHEST 2 VIEWS HISTORY: right sided rib pain, post flu, no focal right sided bony tenderness COMPARISON: Comparison is made with the prior examination dated 11/12/2023. FINDINGS: PA and lateral views of the chest are submitted. The lungs are expanded and clear. There is no pleural effusion, pneumothorax, or pulmonary vascular congestion. The heart is normal in size. There is degenerative disc disease of the spine. XR/XR chest 2V IMPRESSION: No acute cardiopulmonary abnormality. Electronically signed by: Dimitri Butterfield MD 10/31/2024 09:54 AM TOMA
--- OUTSIDE RECORDS SUMMARY | 2024-10-31 10:02 | XMS_ITS | Clinical Summary ---
Author Organization [employer] Address [address] [facility] 7t [place] [address] Care Team Providers Care Engagement Engineer Name Role Phone Phylicia Pyane MD Primary Care Provider [phone] Jt Vazquez PharmD Unavailable [phone] Allergies Active Allergy Reactions Criticality Noted Date [...] Active Problems Problem Noted Date Diagnosed Date Rib pain on right side 10/31/2024 Assessment & Plan (10/31/2024 9:26 AM EST): Pt recovering from influenza, right sided rib pain, some sob per baseline Possible pleuritic inflammation/muscle strain Less likely ddx includes gallbladder pathology though pt denies abdominal pain, or flares related to oral intake Chest x-ray ordered Labs as ordered below Supportive measures assuming normal x-ray. Mass on back 05/19/2024 Assessment & Plan (05/19/2024 10:38 AM EDT): - history of multiple lipoma - will refer to general surgeon for excisional biopsy BPPV (benign paroxysmal positional vertigo) 06/28 Vertigo 06/08/2023 Assessment & Plan (07/09/2023 9:20 AM EDT): - BPPV - improved Assessment & Plan (06/08/2023 6:48 PM EDT): Pt w symptoms of vertigo Here + Ashley cee pick maneuver today w normal neuro [...] uncontrolled. Essential hypertension 08/07/2015 Assessment & Plan (10/31/2024 9:26 AM EST): Above goal today, denies chest pain Assessment & Plan (05/19/2024 10:36 AM EDT): -Goal BP < 150/90 per JNC-8, <130/80 per ACC/AHA -Co-managed with our pharmacist through [facility] -BP not at goal today -EKG normal in Aug 2017. -ACS work-up negative in Aug 2017 at [facility]. -Normal stress test in Oct 2017 -Currently [...] -ACS work-up negative in Aug 2017 at [facility]. -Normal stress test in Oct 2017 -Currently [...] -ACS work-up negative in Aug 2017 at [facility]. -Normal stress test in Oct 2017 -Currently [...] -ACS work-up negative in Aug 2017 at [facility]. -Normal stress test in Oct 2017 -Currently [...] -ACS work-up negative in Aug 2017 at [facility]. 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 -sleep study and CPAP titration study done in May 2018, pressure 13 cm recommended -seen by manager etl and was prescribed CPAP again, autoPAP 6-20 cm H2O, last seen in Apr 2023 -continue treatment plan per manager etl Assessment & Plan (11/14/2023 7:03 AM EST): -sleep study done in Apr 2017, which showed RO and recommended CPAP titration study. -sleep study and CPAP titration study done in May 2018, pressure 13 cm recommended -seen by manager etl and was prescribed CPAP again, autoPAP 6-20 cm H2O, last seen in Apr 2023 -continue treatment plan per manager etl Assessment & Plan (07/09/2023 9:03 AM EDT): -sleep study done in Apr 2017, which showed RO and recommended CPAP titration study. -sleep study and CPAP titration study done in May 2018, pressure 13 cm recommended -seen by manager etl and was prescribed CPAP again, autoPAP 6-20 cm H2O, last seen in Apr 2023 -continue treatment plan per manager etl Assessment & Plan (11/08/2022 7:04 AM EST): [...] Encounters Date Type Department Care Team Description 10/31/2024 9:00 AM EST Office Visit [facility] [address] [place], [place] [phone] Rib pain on right side (Primary Dx); Essential hypertension 10/18/2024 Orders Only [facility] External Provider, [facility] 08/08/2024 Telephone [facility] [address] [place] [address] Diane Vasquez [place] august recall [...] is your housing situation today? I have supawaylon mclean 02/09/[address] you [...] Sign Reading Time Taken Comments Blood Pressure 163/93 10/31/2024 8:51 AM EST Pulse 78 10/31/2024 8:51 AM EST Temperature 36.8 ??C (98.3 ??F) 10/31/2024 8:51 AM ES T Respiratory Rate 18 10/31/2024 8:51 AM EST Oxygen Saturation 97% 10/31/2024 8:51 AM EST Inhaled Oxygen Concentration - - Weight 125 kg (275 lb) 10/31/2024 8:51 AM EST Height 167.6 cm (5' 6 ) 05/19/2024 9:53 AM EDT Body Mass Index 44.39 05/19/2024 9:53 AM EDT Plan of Treatment [...] age to complete this topic Pneumococcal Vaccine: 50+ Years Completed 03/02/2023, 05/14/2010 Zoster Vaccines Completed 06/18/2023, [...] Author Blood Pressure < 150/90 Blood Pressure 163/93(2024 8:51 AM EST) Jt Garcia, PharmD Note: Per JNC-8 62 year old patient without DM or CKD Procedures Procedure Name Priority Date/Time Associated Diagnosis Comments XR CHEST 2 VIEWS Routine 10/31/2024 9:38 AM EST Rib pain on right side US ABDOMEN LIMITED Routine 10/19/2024 5: 40 AM EST HEPATITIS C AB W/REFL TO HCV RNA, QN, PCR Routine 05/19/2024 10:50 AM EDT Abnormal AST and ALT LIPID PANEL WITH REFLEX TO DIRECT LDL Routine 11/12/2023 11:10 AM EST Dyslipidemia from Last 3 Months or Most Recently Relevant to Health Maintenance Results * XR Chest 2 Views (10/31/2024 9:38 AM EST) Anatomical Region Laterality Modality Chest Radiographic Vesna ging 10/31/2024 9:38 AM EST Narrative 10/31/2024 9:57 AM EST ?[facility] ?[address] ?[place] [address] ?XRay Report ? Signed ? Patient: Robert Love,Rodri L ?MR#: ?? [id number] ? : 1960 ?Acct:[id number] ? Age/Sex: 64 / M ?ADM Date: 10/31/24 ? Loc: HO.HHCX ? Attending Dr: Britney Omer BACTERIOLOGIST FOOD ? Ordering Physician: Britney Omer NP ?? Date of Service: 10/31/24 ?? Procedure(s): XR chest 2V ?? Accession Number(s): [id number] ? cc: Britney Omer BACTERIOLOGIST FOOD ? EXAMINATION: ??XR CHEST 2 VIEWS ? HISTORY: right sided rib pain, post flu, no focal right sided bony ?? tenderness ? COMPARISON: Comparison is made with the prior examination dated ?? 11/12/2023. ? FINDINGS: ??PA and lateral views of the chest are submitted. The lungs ?? are expanded and clear. ??There is no pleural effusion, pneumothorax, or ?? pulmonary vascular congestion. ??The heart is normal in size. ??There is ?? degenerative disc disease of the spine. ? XR/XR chest 2V ?? IMPRESSION: ?? No acute cardiopulmonary abnormality. ? Electronically signed by: ??Dimitri Butterfield MD ??10/31/2024 09:54 AM EST ?? RP ? Dictated By: ?Dimitri Butterfield MD ? Signed By: ?<Electronically signed by Dimitri Butterfield MD in OV> ?10/31/24 0954 ? DD/ 0938 ? TD/TT: 10/31/24 0948 ? Tso: ? Procedure Note Tessa, Image - 10/31/[address] [address] XRay Report Signed Patient: Rodri Yeager LMR#: [id number] : 2Acct:[id number] Age/Sex: 64 / MADM Date: 10/31/24 Loc: .HHX Attending Dr: Britney Omer BACTERIOLOGIST FOOD Ordering Physician: Britney Omer NP Date of Service: 10/31/24 Procedure(s): XR chest 2V Accession Number(s): [id number] cc: Britney Omer BACTERIOLOGIST FOOD EXAMINATION: XR CHEST 2 VIEWS HISTORY: right sided rib pain, post flu, no focal right sided bony tenderness COMPARISON: Comparison is made with the prior examination dated 11/12/2023. FINDINGS: PA and lateral views of the chest are submitted. The lungs are expanded and clear. There is no pleural effusion, pneumothorax, or pulmonary vascular congestion. The heart is normal in size. There is degenerative disc disease of the spine. XR/XR chest 2V IMPRESSION: No acute cardiopulmonary abnormality. Electronically signed by: Dimitri Butterfield MD 10/31/2024 09:54 AM EST RP Dictated By: Dimitri Butterfield MD Signed By: <Electronically signed by Dimitri Butterfield MD in OV> 10/31/24 0954 DD/ 0938 TD/TT: 10/31/24 0948 Tso: us Britney Omer BACTERIOLOGIST FOOD IMG XR PROCEDURES Final Result * US Abdomen Limited (10/19/2024 5:40 AM EST) Anatomical Region Laterality Modality Abdomen Ultrasound 10/19/2024 5:40 AM EST Narrative 10/19/2024 5:42 AM EST ? [facility] ?[address] ?[place] [address] ? Ultrasound Report ? Signed ? Patient: Robert Love,Rodri L ?MR#: ?? [id number] ? : 1960 ?Acct:[id number] ? Age/Sex: 64 / M ?ADM Date: 01/21/25 ? Loc: HO.US ? Attending Felecia Bernal MD ? Ordering Physician: Dane Bernal MD ?? Date of Service: 10/18/24 ?? Procedure(s): US abdomen limited ?? Accession Number(s): [id number] ? cc: Dane Bernal MD; Phylicia Payne [...] DD/ 0540 ? TD/TT: 10/19/24 0540 ? Tso: ? Procedure Note Dondavid, Image - 10/19/2024 [place] [address] Ultrasound Report Signed Patient: Rodri Yeager LMR#: [id number] : 2Acct:[id number] Age/Sex: 64 / MADM Date: 10/18/24 Loc: HO.US Attending Dr: Dane Bernal MD Ordering Physician: Dane Bernal MD Date of Service: 10/18/24 Procedure(s): US abdomen limited Accession Number(s): [id number] cc: Dane Bernal MD; Phylicia Payne MD [...] in OV> 10/19/24541 DD/ 9 TD/TT: 10/19/24539 Tso: [facility] External Provider IMG US PROCEDURES Final Result * Hepatitis C Antibody with Reflex to HCV, RNA, Quantitative, Real-Time PCR (05/19/2024 10:50 AM EDT) Hepatitis C Antibody Nonreactive Nonreactive [facility] Comment:Antibodies to HCV no t detected; does not exclude early acuteHCV infection. Blood Venous blood specimen / Unknown 05/19/2024 10:50 AM EDT 05/19/2024 11:45 AM EDT Phylicia Payne MD LAB BLOOD ORDERABLES Final Resul t [facility] [address] [place] [phone] * (ABNORMAL) Lipid Panel with Reflex to Direct LDL (11/12/2023 11:10 AM EST) Triglycerides 147 <150 mg/dL [facility] Comment:Desirable Triglyceri de: less than 150 mg/dLBorderline High Triglyceride 150-199 mg/dLHigh Triglyceride: 200-499 mg/dLVery High Triglyceride: greater than or equal to 5OO mg/dL Cholesterol 167 <200 mg/dL [facility] Comment:Desirable Cholestero l: less than 200 mg/dLBorderline High Cholesterol: 200-239 mg/dLHigh Cholesterol: greater than 239 mg/dL LDL Cholesterol Calculated 101(H) <100 mg/dL [facility] Comment:Desirable LDL: less than 100 mg/dLNear Optimal/Above Optimal LDL: 110- 129 mg/dLBorderline High LDL: 130-159 mg/dLHigh LDL: 160-189 mg/dLVery High LDL: greater than or equal to 190 mg/dL HDL Cholesterol 37(L) >40 mg/dL [facility] Comment:Desirable HDL: great er than 40 mg/dL Note: This HDL assay may give artificially low results in patients with liver disease. Blood 11/12/2023 11:1 0 AM EST 11/12/2023 1:06 PM EST us Phylicia Payne MD LAB BLOOD ORDERABLES Final Resul t [facility] [address] [place] [address] [phone] from Last 3 Months or Most Recently Relevant to Health Maintenance [place] [place] [address] [place] [id number] Care Teams Engagement Engineer Relationship Specialty Start Date End Date Phylicia Payne MD [address] [place], [place] [phone] PCP - General Family Medicine 09/28/18 Jt Vazquez, ShaiD [address] [place] [address] Pharmacist Internal Medicine 01/26/23
--- OUTSIDE RECORDS SUMMARY | 2024-10-31 10:02 | XMS_ITS | Encounter Summary ---
Author Organization [employer] Address [address] [facility] 7t [place] [address] Care Team Providers Care Wet Roaster Name Role Phone Phylicia Payne MD Primary Care Provider [phone] Jt Vazquez PharmD Unavailable [phone] Encounter Details Date Type Department Care Team (Late st Contact Info) Description 10/31/2024 9:00 AM EST Office Visit [facility] [address] [place] [address] Rib pain on right side (Primary Dx); Essential hypertension Social History Tobacco Use Types [...] AM EDT documented as of this encounter Last Filed Vital Signs Vital Sign Reading Time Taken Comments Blood Pressure 163/93 10/31/2024 8:51 AM EST Pulse 78 10/31/2024 8:51 AM EST Temperature 36.8 ??C (98.3 ??F) 10/31/2024 8:51 AM ES T Respiratory Rate 18 10/31/2024 8:51 AM EST Oxygen Saturation 97% 10/31/2024 8:51 AM EST Inhaled Oxygen Concentration - - Weight 125 kg (275 lb) 10/31/2024 8:51 AM EST Height - - Body Mass Index 44.39 05/19/2024 9:53 AM EDT documented in this encounter Miscellaneous Notes * Assessment & Plan Note - Britney Omer NP - 10/31/2024 9:26 AM ESTAssociated Problem(s): Essential hypertension Above goal today, denies chest pain * Assessment & Plan Note - Britney Omer NP - 10/31/2024 9:26 AM ESTAssociated Problem(s): Rib pain on right side Pt recovering from influenza, right sided rib pain, some sob per baseline Possible pleuritic inflammation/muscle strain Less likely ddx includes gallbladder pathology though pt denies abdominal pain, or flares related to oral intake Chest x-ray ordered Labs as ordered below Supportive measures assuming normal x-ray. documented in this encounter Plan of Treatment Scheduled Orders Name Type Priority Associated Diagnoses Orde r Schedule Comprehensive Metabolic Panel Lab Routine Rib pain on right side Expected: 10/31/2024 (Approximate), Expires: 10/31/2025 CBC auto differential Lab Routine Rib pain on right side Expected: 10/31/2024 (Approximate), Expires: 10/31/2025 documented as of this encounter Goals Goal [...] AM EST Rib pain on right side documented in this encounter Results * XR Chest 2 Views (10/31/2024 9:38 AM EST) Anatomical Region Laterality Modality Chest Radiographic Vesna ging 10/31/2024 9:38 AM EST Narrative 10/31/2024 9:57 AM EST ?[facility] ?[address] ?[place] [address] ?XRay Report ? Signed ? Patient: Rodri Yeager ?MR#: ?? [id number] ? : 1960 ?Acct:[id number] ? Age/Sex: 64 / M ?ADM Date: 10/31/24 ? Loc: HO.HHCX ? Attending Dr: Britney Omer BOTTLE LINE WORKER ? Ordering Physician: Britney Omer BOTTLE LINE WORKER ?? Date of Service: 10/31/24 ?? Procedure(s): XR chest 2V ?? Accession Number(s): [id number] ? cc: Britney Omer BOTTLE LINE WORKER ? EXAMINATION: ??XR CHEST 2 VIEWS ? [...] ??Dimitri Butterfield MD ??10/31/2024 09:54 AM EST ? Dictated By: ?Dimitri Butterfield MD ? Signed By: ?<Electronically signed by Dimitri Butterfield MD in OV> ?10/31/2454 ? DD/ 0938 ? TD/TT: 10/31/2448 ? Roll Plugger: ? Procedure Note Tessa, Kell - 10/31/[address] [address] XRay Report Signed Patient: Rodri Yeager LMR#: [id number] : 2Acct:[id number] Age/Sex: 64 / MADM Date: 10/31/24 Loc: HO.HHCX Attending Dr: Britney Omer BOTTLE LINE WORKER Ordering Physician: Britney Omer NP Date of Service: 10/31/24 Procedure(s): XR chest 2V Accession Number(s): [id number] cc: Britney Omer BOTTLE LINE WORKER EXAMINATION: XR CHEST 2 VIEWS HISTORY: right [...] Dimitri Butterfield MD 10/31/2024 09:54 AM EST Dictated By: Dimitri Butterfield MD Signed By: <Electronically signed by Dimitri Butterfield MD in OV> 10/31/24953 DD/ 7 TD/TT: 10/31/24947 Roll Plugger: us Britney Omer BOTTLE LINE WORKER IMG XR PROCEDURES Final Result documented in this encounter Visit Diagnoses Diagnosis Rib pain on right side- Primary Essential hypertension Unspecified essential hypertension documented in this encounter Additional Health Concerns Assessment Noted Time PHQ-9 Depression Total Score: 0 05/19/20 24 10:03 AM EDT documented as of this encounter Care Teams Wet Roaster Relationship Specialty Start Date End Date Phylicia Payne MD [address] [place] [address] PCP - General Family Medicine 09/28/18 Jt Vazquez, ShaiD [address] [place] [address] Pharmacist Internal Medicine 01/26/23 documented as of this encounter
--- OUTSIDE RECORDS SUMMARY | 2024-10-31 10:02 | XMS_ITS | Encounter Summary ---
Author Organization [employer] Address [address] [facility] 7t [place] [address] Care Team Providers Care Nicker And Breaker Name Role Phone Phylicia Payne MD Primary Care Provider [phone] Jt Vazquez PharmD Unavailable [phone] Reason for Visit * Reason Comments Med Refill Encounter Details Date Type Department Care Team (Late st Contact Info) Description 02/19/2024 Refill [facility] [address] [place], [place] [phone] Phylicia Payne MD [address] [place], [place] [phone] Dyslipidemia Social History Tobacco Use Types Packs/Day [...] 150/90 Blood Pressure 163/93(2024 8:51 AM EST) No Jt Vazquez, Alyce Note: Per JNC-8 62 year old patient without DM or CKD documented as of this encounter Visit Diagnoses Diagnosis Dyslipidemia Other and unspecified hyperlipidemia documented in this encounter Additional Health Concerns Assessment Noted Time PHQ-9 Depression Total Score: 0 02/09/20 24 10:12 AM EDT documented as of this encounter Care Teams Nicker And Breaker Relationship Specialty Start Date End Date Phylicia Payne MD [address] [place] [address] PCP - General Family Medicine 09/28/18 Jt Vazquez, Alyce [address] [place] [address] Pharmacist Internal Medicine 01/26/23 documented as of this encounter
--- OUTSIDE RECORDS SUMMARY | 2024-10-31 10:02 | XMS_ITS | Encounter Summary ---
Author Organization [employer] Address [address] [facility] [address]t [place] [address] Care Team Providers Care Pinking Machine Operator Name Role Phone Phylicia Payne MD Primary Care Provider [phone] Jt Vazquez PharmD Unavailable [phone] Encounter Details Date Type Department Care Team (Late st Contact Info) Description 10/18/2024 Orders Only [facility] External Provider, [facility] Social History Tobacco Use Types Packs/Day [...] EST Narrative 10/19/2024 5:42 AM EST ? [facility] ?[address] ?[place] [address] ? Ultrasound Report ? Signed ? Patient: Rodri Yeager ?MR#: ?? [id number] ? : 1960 ?Acct:[id number] ? Age/Sex: 64 / M ?ADM Date: 10/18/24 ? Loc: HO.US ? Attending Dr: Dane Bernal MD ? Ordering Physician: Dane Bernal MD ?? Date of Service: 10/18/24 ?? Procedure(s): US abdomen limited ?? Accession Number(s): [id number] ? cc: Dane Bernal MD; Phylicia Payne [...] DD/ 0540 ? TD/TT: 10/19/24 0540 ? Willower: ? Procedure Note Donmontezcbniraliter, Image - 10/19/2024 [place] [address] Ultrasound Report Signed Patient: Rodri Yeager LMR#: [id number] : 1960cct:[id number] Age/Sex: 64 / MADM Date: 10/18/24 Loc: HO.US Attending Dr: Dane Bernal MD Ordering Physician: Dane Bernal MD Date of Service: 10/18/24 Procedure(s): US abdomen limited Accession Number(s): [id number] cc: Dane Bernal MD; Phylicia Payne MD [...] Enrique Pham MD in OV> 10/19/2442 DD/ 9 TD/TT: 10/19/24539 Willower: [facility] External Provider IMG PROCEDURES Final Result documented in this encounter Visit Diagnoses Not on filedocumented in this encounter Additional Health Concerns Assessment Noted Time PHQ-9 Depression Total Score: 0 05/19/20 24 10:03 AM EDT documented as of this encounter Care Teams Pinking Machine Operator Relationship Specialty Start Date End Date Phylicia Payne MD [address] [place] [address] PCP - General Family Medicine 09/28/18 Jt Vazquez, PharmD [address] [place] [address] Pharmacist Internal Medicine 01/26/23 documented as of this encounter
--- OUTSIDE RECORDS SUMMARY | 2024-10-31 10:02 | XMS_ITS | Encounter Summary ---
Author Organization [employer] Address [address] [facility] 7t [place] [address] Care Team Providers Care Inseam Leveler Name Role Phone Phylicia Payne MD Primary Care Provider [phone] Jt Vazquez PharmD Unavailable [phone] Encounter Details Date Type Department Care Team (Late st Contact Info) Description 05/25/2024 Orders Only [facility] [address] [place], [place] [phone] Phylicia Payne MD [address] [place], [place] [phone] Hematuria, unspecified type (Primary Dx); Pyuria; Essential [...] documented as of this encounter Care Teams Inseam Leveler Relationship Specialty Start Date End Date Phylicia Payne MD [address] [place] [address] PCP - General Family Medicine 09/28/18 Jt Vazquez, PharmD [address] [place] [address] Pharmacist Internal Medicine 01/26/23 documented as of this encounter
== END 2024-10-31 09:38 | disposition home or self-care (01) ==
LOC: HO.HHCX 09:37
PROVIDERS: Visit Provider Nurse Practitioner Family
DX: R07.81 Pleurodynia (principal)
CPT/HCPCS: 71046

== ENCOUNTER → 2024-10-31 09:38 | Outpatient (BNV) | payer MEDICARE, SELFPAY | PROVIDERS: Visit Provider Radiology Diagnostic Radiology | DX: R07.81 Pleurodynia (principal) | CPT/HCPCS: 71046 ==

== ENCOUNTER 2024-11-01 11:03 | Outpatient (REF) | payer MEDICARE, SELFPAY ==
--- OUTSIDE RECORDS SUMMARY | 2024-11-01 12:46 | XMS_ITS | Encounter Summary ---
Author Organization [employer] Address [address] [facility] 7t [place] [address] Care Team Providers Care Sfdc Developer Name Role Phone Phylicia Payne MD Primary Care Provider [phone] Jt Vazquez PharmD Unavailable [phone] Encounter Details Date Type Department Care Team (Late st Contact Info) Description 10/18/2024 Orders Only [facility] External Provider, [facility] Social History Tobacco Use Types Packs/Day Years [...] EST Narrative 10/19/2024 5:42 AM EST ? [facility] ?[address] ?[place] [address] ? Ultrasound Report ? Signed ? Patient: Rodri Yeager ?MR#: ?? [id number] ? : 1960 ?Acct:[id number] ? Age/Sex: 64 / M ?ADM Date: 10/18/24 ? Loc: HO.US ? Attending Dr: Dane Bernal MD ? Ordering Physician: Dane Bernal MD ?? Date of Service: 10/18/24 ?? Procedure(s): US abdomen limited ?? Accession Number(s): [id number] ? cc: Dane Bernal MD; Phylicia Payne [...] DD/ 0540 ? TD/TT: 10/19/24 0540 ? Property Officer: ? Procedure Note Donmontezcbniraliter, Image - 10/19/2024 [place] [address] Ultrasound Report Signed Patient: Rodri Yeager LMR#: [id number] : 1960cct:[id number] Age/Sex: 64 / MADM Date: 10/18/24 Loc: HO.US Attending Dr: Dane Bernal MD Ordering Physician: Dane Bernal MD Date of Service: 10/18/24 Procedure(s): US abdomen limited Accession Number(s): [id number] cc: Dane Bernal MD; Phylicia Payne MD [...] in OV> 10/19/2442 DD/ 9 TD/TT: 10/19/24539 Property Officer: [facility] External Provider IMG PROCEDURES Final Result documented in this encounter Visit Diagnoses Not on filedocumented in this encounter Additional Health Concerns Assessment Noted Time PHQ-9 Depression Total Score: 0 05/19/20 24 10:03 AM EDT documented as of this encounter Care Teams Sfdc Developer Relationship Specialty Start Date End Date Phylicia Payne MD [address] [place] [address] PCP - General Family Medicine 09/28/18 Jt Vazquez, PharmD [address] [place] [address] Pharmacist Internal Medicine 01/26/23 documented as of this encounter
--- OUTSIDE RECORDS SUMMARY | 2024-11-01 12:46 | XMS_ITS | Encounter Summary ---
Author Organization [employer] Address [address] [facility] 7[address] [place] [address] Care Team Providers Care Machinery Engineer Name Role Phone Phylicia Payne MD Primary Care Provider Jt Vazquez PharmD Unavailable [phone] Encounter Details Date Type Department Care Team (Late st Contact Info) Description 05/25/2024 Orders Only [facility] [address] [place], [place] [phone] Phylicia Payne MD [address] [place], [place] [phone] Hematuria, unspecified type (Primary Dx); Pyuria; Essential [...] documented as of this encounter Care Teams Machinery Engineer Relationship Specialty Start Date End Date Phylciia Payne MD [address] [place] [address] PCP - General Family Medicine 09/28/18 Jt Vazquez, PharmD [address] [place] [address] Pharmacist Internal Medicine 01/26/23 documented as of this encounter
--- OUTSIDE RECORDS SUMMARY | 2024-11-01 12:46 | XMS_ITS | Clinical Summary ---
Author Organization [employer] Address [address] [facility] 7t [place] [address] Care Team Providers Care Manager Switch Name Role Phone Phylicia Payen MD Primary Care Provider [phone] Jt Vazquez PharmD Unavailable [phone] Allergies Active Allergy Reactions Criticality Noted Date [...] -ACS work-up negative in Aug 2017 at [facility]. -Normal stress test in Oct 2017 -Currently [...] -ACS work-up negative in Aug 2017 at [facility]. -Normal stress test in Oct 2017 -Currently [...] -ACS work-up negative in Aug 2017 at [facility]. -Normal stress test in Oct 2017 -Currently [...] -ACS work-up negative in Aug 2017 at [facility]. -Normal stress test in Oct 2017 -Currently [...] -ACS work-up negative in Aug 2017 at [facility]. -Normal stress test in Oct 2017 -Undertreated [...] seems to be due to untreated RO -Scheduling Coordinator is planning to evaluate him with PFT [...] seems to be due to untreated RO -Scheduling Coordinator is planning to evaluate him with PFT [...] seems to be due to untreated RO -Scheduling Coordinator is planning to evaluate him with PFT [...] seems to be due to untreated RO -Scheduling Coordinator is planning to evaluate him with PFT [...] RO -refer to sleep medicine clinic or [facility] specialist Osteoarthritis of finger 12/28/2014 Tubular adenoma [...] 2018, pressure 13 cm recommended -seen by relief man and was prescribed CPAP again, autoPAP 6-20 cm H2O, last seen in Apr 2023 -continue treatment plan per relief man Assessment & Plan (02/09/2024 10:15 AM EDT): -sleep study done in Apr 2017, which showed RO and recommended CPAP titration study. -sleep study and CPAP titration study done in May 2018, pressure 13 cm recommended -seen by relief man and was prescribed CPAP again, autoPAP 6-20 cm H2O, last seen in Apr 2023 -continue treatment plan per relief man Assessment & Plan (11/14/2023 7:03 AM EST): -sleep study done in Apr 2017, which showed RO and recommended CPAP titration study. -sleep study and CPAP titration study done in May 2018, pressure 13 cm recommended -seen by relief man and was prescribed CPAP again, autoPAP 6-20 cm H2O, last seen in Apr 2023 -continue treatment plan per relief man Assessment & Plan (07/09/2023 9:03 AM EDT): -sleep study done in Apr 2017, which showed RO and recommended CPAP titration study. -sleep study and CPAP titration study done in May 2018, pressure 13 cm recommended -seen by relief man and was prescribed CPAP again, autoPAP 6-20 cm H2O, last seen in Apr 2023 -continue treatment plan per relief man Assessment & Plan (11/08/2022 7:04 AM EST): [...] Description 10/31/2024 9:00 AM EST Office Visit [facility] [address] [place] [address] Britney Omer NP Rib pain on right side (Primary Dx); Essential hypertension 10/18/2024 Orders Only [facility] External Provider, [facility] 08/08/2024 Telephone [facility] [address] [place] [address] Diane Vasquez [place] august recall [...] AM EST Narrative 10/31/2024 9:57 AM EST ?[facility] ?[address] ?[place] [address] ?XRay Report ? Signed ? Patient: Robert Love,Rodri L ?MR#: ?? [id number] ? : 1960 ?Acct:[id number] ? Age/Sex: 64 / M ?ADM Date: 10/31/24 ? Loc: HO.HHCX ? Attending Dr: Britney Omer CLAIMS ANALYST ? Ordering Physician: Britney Omer CLAIMS ANALYST ?? Date of Service: 10/31/24 ?? Procedure(s): XR chest 2V ?? Accession Number(s): [id number] ? cc: Britney Omer CLAIMS ANALYST ? EXAMINATION: ??XR CHEST 2 VIEWS ? [...] DD/ 0938 ? TD/TT: 10/31/24 0948 ? Financial Advisor: ? Procedure Note Tessa, Kell - 10/31/2024 [facility] [address] [place] [address] XRay Report Signed Patient: Rodri Yeager LMR#: [id number] : 2Acct:[id number] Age/Sex: 64 / MADM Date: 10/31/24 Loc: HO.HHCX Attending Dr: Britney Omer NP Ordering Physician: Britney Omer NP Date of Service: 10/31/24 Procedure(s): XR chest 2V Accession Number(s): [id number] cc: Britney Omer CLAIMS ANALYST EXAMINATION: XR CHEST 2 VIEWS HISTORY: right [...] 10/31/24 0954 DD/ 0938 TD/TT: 10/31/24 0948 Financial Advisor: us Britney Omer CLAIMS ANALYST IMG XR PROCEDURES Final Result * US Abdomen Limited (10/19/2024 5:40 AM EST) Anatomical Region Laterality Modality Abdomen Ultrasound 10/19/2024 5:40 AM EST Narrative 10/19/2024 5:42 AM EST ? [facility] ?[address] ?[place] [address] ? Ultrasound Report ? Signed ? Patient: Robert Love,Rodri L ?MR#: ?? [id number] ? : 1960 ?Acct:[id number] ? Age/Sex: 64 / M ?ADM Date: 01/21/25 ? Loc: HO.US ? Attending Felecia Bernal MD ? Ordering Physician: Dane Bernal MD ?? Date of Service: 10/18/24 ?? Procedure(s): US abdomen limited ?? Accession Number(s): [id number] ? cc: Dane Bernal MD; Phylicia Payne [...] DD/ 0540 ? TD/TT: 10/19/24 0540 ? Financial Advisor: ? Procedure Note Donotcbinterpreter, Image - 10/19/2024 [place] [address] Ultrasound Report Signed Patient: Rodri Yeager LMR#: [id number] : 2Acct:[id number] Age/Sex: 64 / MADM Date: 10/18/24 Loc: HO.US Attending Dr: Dane Bernal MD Ordering Physician: Dane Bernal MD Date of Service: 10/18/24 Procedure(s): US abdomen limited Accession Number(s): [id number] cc: Dane Bernal MD; Phlyicia Payne MD CLINICAL HISTORY: R19.00 - Intra-abdominal [...] in OV> 10/19/2442 DD/ 9 TD/TT: 10/19/24539 Financial Advisor: [facility] External Provider IMG US PROCEDURES Final Result * Hepatitis C Antibody with Reflex to HCV, RNA, Quantitative, Real-Time PCR (05/19/2024 10:50 AM EDT) Hepatitis C Antibody Nonreactive Nonreactive [facility] Comment:Antibodies to HCV no t detected; does not exclude early acuteHCV infection. Blood Venous blood specimen / Unknown 05/19/2024 10:50 AM EDT 05/19/2024 11:45 AM EDT Phylicia Payne MD LAB BLOOD ORDERABLES Final Resul t [facility] [address] [place], [place] [phone] * (ABNORMAL) Lipid Panel with Reflex to Direct LDL (11/12/2023 11:10 AM EST) Triglycerides 147 <150 mg/dL [facility] Comment:Desirable Triglyceri de: less than 150 mg/dLBorderline High Triglyceride 150-199 mg/dLHigh Triglyceride: 200-499 mg/dLVery High Triglyceride: greater than or equal to 5OO mg/dL Cholesterol 167 <200 mg/dL [facility] Comment:Desirable Cholestero l: less than 200 mg/dLBorderline High Cholesterol: 200-239 mg/dLHigh Cholesterol: greater than 239 mg/dL LDL Cholesterol Calculated 101(H) <100 mg/dL [facility] Comment:Desirable LDL: less than 100 mg/dLNear Optimal/Above Optimal LDL: 110- 129 mg/dLBorderline High LDL: 130-159 mg/dLHigh LDL: 160-189 mg/dLVery High LDL: greater than or equal to 190 mg/dL HDL Cholesterol 37(L) >40 mg/dL [facility] Comment:Desirable HDL: great er than 40 mg/dL Note: This HDL assay may give artificially low results in patients with liver disease. Blood 11/12/2023 11:1 0 AM EST 11/12/2023 1:06 PM EST us Phylicia Payne MD LAB BLOOD ORDERABLES Final Resul t [facility] [address] [place] [address] [phone] from Last 3 Months or Most Recently Relevant to Health Maintenance Insurance [place] [address] [place] [id number] Care Teams Manager Switch Relationship Specialty Start Date End Date Phylicia Payne MD [address] [place] [address] PCP - General Family Medicine 09/28/18 Jt Vazquez, ShaiD [address] [place] [address] Pharmacist Internal Medicine 01/26/23
--- OUTSIDE RECORDS SUMMARY | 2024-11-01 12:46 | XMS_ITS | Encounter Summary ---
Author Organization [employer] Address [address] [facility] 7t [place] [address] Care Team Providers Care Manager Skilled Name Role Phone Phylicia Payne MD Primary Care Provider [phone] Jt Vazquez PharmD Unavailable [phone] Encounter Details Date Type Department Care Team (Late st Contact Info) Description 10/31/2024 9:00 AM EST Office Visit [facility] [address] [place], [place] [phone] Britney Omer NP [address] [place], [place] [phone] Rib pain on right side (Primary Dx); [...] 9:53 AM EDT documented in this encounter Progress Notes * Britney Omer NP - 10/31/2024 9:00 AM EST Subjective: Rodri Love is a 64 y.o. male who presents to the office for a sick visit. HPI Right sided rib abdominal pain, rib pain eating normally , No relationship to foods Taking a deep breath does not necessarily make it worse Getting a lipoma removed tomorrow, (upper back) Dx with flu, right sided rib pain, started with cough Baseline asthma, same asthma symptoms. Patient Active Problem List Diagnosis Allergic rhinitis Essential hypertension Impaired fasting glucose Asthma Obesity Obstructive sleep apnea syndrome Osteoarthritis of finger Tubular adenoma of colon Dyslipidemia Vertigo BPPV (benign paroxysmal positional vertigo) Mass on back Rib pain on right side Review of Systems Constitutional: Negative for activity change and appetite change. HENT: Negative for congestion and dental problem. Respiratory: Positive for cough, chest tightness and shortness of breath. Negative for wheezing andstridor. Cardiovascular: Negative for chest pain and leg swelling. Gastrointestinal: Negative for abdominal distention, abdominal pain, constipation and diarrhea. Genitourinary: Negative for difficulty urinating, dysuria and hematuria. Allergies Allergen Reactions Jordan Inhibitors Other reaction(s): unspecified Objective: Visit Vitals BP (!) 163/93 (BP Location: Right arm, Patient Position: Sitting, BP Cuff Size: Large adult) Pulse 78 Temp 98.3 ??F (36.8 ??C) (Temporal) Resp 18 Wt 275 lb (125 kg) SpO2 97% BMI 44.39 kg/m?? Smoking Status Former BSA 2.41 m?? Physical Exam Vitals reviewed. Constitutional: Appearance: Normal appearance. He is obese. HENT: Head: Normocephalic. Cardiovascular: Rate and Rhythm: Normal rate and regular rhythm. Heart sounds: Normal heart sounds. No murmur heard. Pulmonary: Effort: No respiratory distress. Breath sounds: Normal breath sounds. No wheezing. Comments: Tenderness to right sided lateral lower rib area, no eccymosis Abdominal: Palpations: Abdomen is soft. Musculoskeletal: Cervical back: Neck supple. Neurological: General: No focal deficit present. Mental Status: He is alert. Psychiatric: Mood and Affect: Mood normal. Assessment/Plan: Problem List Items Addressed This Visit Essential hypertension Current Assessment & Plan Above goal today, denies chest pain Rib pain on right side - Primary Current Assessment & Plan Pt recovering from influenza, right sided rib pain, some sob per baseline Possible pleuritic inflammation/muscle strain Less likely ddx includes gallbladder pathology though pt denies abdominal pain, or flares related to oral intake Chest x-ray ordered Labs as ordered below Supportive measures assuming normal x-ray. Relevant Orders XR Chest 2 Views (Completed) Comprehensive Metabolic Panel CBC auto differential Current Outpatient Medications Medication Sig Dispense Refill albuterol (2.5 MG/3ML) 0.083% nebulizer solution Take 1 vial by nebulizer every 4 hours as needed for difficulty breathing 75 mL 3 albuterol 108 (90 Base) MCG/ACT inhaler Inhale 2 puffs every 4 (four) hours if needed for wheezing or shortness of breath. 18 g 1 amLODIPine (Norvasc) 5 MG tablet TAKE 1 Tablet BY MOUTH EVERY DAY 90 tablet 3 aspirin 81 MG EC tablet Purchases OTC - 1 tablet daily atorvastatin (Lipitor) 10 MG tablet Take 1 tablet by mouth at bedtime 90 tablet 3 budesonide-formoterol (Symbicort) 160-4.5 MCG/ACT inhaler Inhale 2 puffs in the morning and at bedtime. Rinse mouth with water after use to reduce aftertaste and incidence of candidiasis. Do not swallow. 1 each 11 losartan (Cozaar) 100 MG tablet TAKE 1 TABLET BY MOUTH ONCE DAILY 90 tablet 3 torsemide (Demadex) 10 MG tablet Take 1 tablet (10 mg) by mouth Once per day. 90 tablet 3 No current facility-administered medications for this visit. Visit Conducted in: Malawian Translation by: Provided by [facility] staff member Sean REARDON , documented in this encounter Miscellaneous Notes * [...] ordered below Supportive measures assuming normal x-ray. * Result Encounter Note - Britney Omer NP - 10/31/2024 9:00 AM EST Please let pt know x-ray normal, can we please fax to surgeon for tomororw? Thank you documented in this encounter Plan of Treatment [...] AM EST Narrative 10/31/2024 9:57 AM EST ?[facility] ?[address] ?[place] [address] ?XRay Report ? Signed ? Patient: Rodri Yeager ?MR#: ?? [id number] ? : 1960 ?Acct:[id number] ? Age/Sex: 64 / M ?ADM Date: 10/31/24 ? Loc: HO.HHCX ? Attending Dr: Britney Omer CONSULTING PSYCHOLOGIST ? Ordering Physician: Britney Omer CONSULTING PSYCHOLOGIST ?? Date of Service: 10/31/24 ?? Procedure(s): XR chest 2V ?? Accession Number(s): [id number] ? cc: Britney Omer CONSULTING PSYCHOLOGIST ? EXAMINATION: ??XR CHEST 2 VIEWS ? [...] OV> ?10/31/2454 ? DD/ 0938 ? TD/TT: 10/31/24 0948 ? Prospect Manager: ? Procedure Note Dondavid, Kell - 10/31/[address] [address] XRay Report Signed Patient: Rodri Yeager LMR#: [id number] : 2Acct:[id number] Age/Sex: 64 / MADM Date: 10/31/24 Loc: HO.HHCX Attending Dr: Britney Omer CONSULTING PSYCHOLOGIST Ordering Physician: Britney Omer NP Date of Service: 10/31/24 Procedure(s): XR chest 2V Accession Number(s): [id number] cc: Britney Omer CONSULTING PSYCHOLOGIST EXAMINATION: XR CHEST 2 VIEWS HISTORY: right [...] in OV> 10/31/24953 DD/ 7 TD/TT: 10/31/24947 Prospect Manager: us Britney Omer CONSULTING PSYCHOLOGIST IMG XR PROCEDURES Final Result documented in this encounter Visit Diagnoses Diagnosis Rib pain on right side- Primary Essential hypertension Unspecified essential hypertension documented in this encounter Additional Health Concerns Assessment Noted Time PHQ-9 Depression Total Score: 0 05/19/20 24 10:03 AM EDT documented as of this encounter Care Teams Manager Skilled Relationship Specialty Start Date End Date Phylicia Payne MD [address] [place] [address] PCP - General Family Medicine 09/28/18 Jt Vazquez, ShaiD [address] [place] [address] Pharmacist Internal Medicine 01/26/23 documented as of this encounter
--- OUTSIDE RECORDS SUMMARY | 2024-11-01 12:46 | XMS_ITS | Encounter Summary ---
Author Organization [employer] Address [address] [facility] 7t [place] [address] Care Team Providers Care Senior Water Resources Engineer Name Role Phone Phylicia Payne MD Primary Care Provider [phone] Jt Vazquez PharmD Unavailable [phone] Reason for Visit * Reason Comments Med Refill Encounter Details Date Type Department Care Team (Late st Contact Info) Description 02/19/2024 Refill [facility] [address] [place], [place] [phone] Phylicia Payne MD [address] [place], [place] [phone] Dyslipidemia Social History Tobacco Use Types Packs/Day [...] documented as of this encounter Care Teams Senior Water Resources Engineer Relationship Specialty Start Date End Date Phylicia Payne MD [address] [place] [address] PCP - General Family Medicine 09/28/18 Jt Vazquez, Alyce [address] [place] [address] Pharmacist Internal Medicine 01/26/23 documented as of this encounter
== END 2024-11-01 11:04 | disposition home or self-care (01) ==
LOC: HO.LNP 11:03
PROVIDERS: PCP Family Medicine; Visit Provider Surgery
DX: D17.1 Benign lipomatous neoplasm of skin and subcutaneous tissue of trunk (principal)
CPT/HCPCS: 11404; 88304; 99212

== ENCOUNTER 2024-11-08 10:29 | Outpatient (AMB) | payer MEDICARE, SELFPAY ==
--- NOTE | 2024-11-08 10:33 | MHC.OFFVIS ---
Intake Visit Reasons: s/p excision Lipoma~ exc Rt lower back Intake Note: Patient here s/p WLE lipoma on Rt mid lower back. Reports incision healing well. Patient c/o: no concerns. Steri strips fell off. Excision: 11-01-2024 Sumo Wrestler Required: No Accompanied by: Self / Same As Patient Allergies No Known Allergies Allergy (Verified 11/08/24 10:36) HPI Comments Details: 1. Patient presents for follow-up status post right mid back lipoma excision 2. Patient was to right triceps lipomas that he would like to have addressed once he is fully convalesced from this procedure. Pathology is benign. No wound issues or complaints. [facility] Medical History Allergic rhinitis RO (obstructive sleep apnea) Restrictive lung disease PRAJAPATI (dyspnea on exertion) Morbid obesity Surgical History (Updated 11/08/24 @ 10:46 by Dane Bernal MD) Lipoma of back (11/01/24) Social History Patient Tobacco Use Status: Former Tobacco user Physical Exam Back/Spine/Pelvis Other: Right mid back demonstrates wound healing very well. Extrem Other: Patient was to lipomas involving his right triceps area. The more proximal measures 2 x 1 cm. The lower were measures 4 x 3 cm. Assessment & Plan Assessment & Plan (1) Multiple lipomas: Code(s): D17.9 - Benign lipomatous neoplasm, unspecified Category: Surgical (2) Encounter for wound re-check: Code(s): Z51.89 - Encounter for other specified aftercare Category: Surgical Plan Patient was status when he has fully convalesced from the right back excision, he would like to return to have the other lipomas excised. Patient was been given local instructions, and will otherwise follow-up as directed or p.r.n.. Coding Level of Care Code Est Pt Level 4 (03871) Global (17730) Diagnoses Multiple lipomas D17.9 Encounter for wound re-check Z51.89
--- OUTSIDE RECORDS SUMMARY | 2024-11-08 11:42 | XMS_ITS | Encounter Summary ---
Author Organization [employer] Address [address] [facility] [address]t [place] [address] Care Team Providers Care Associate Professor Of Theatre Name Role Phone Phylicia Payne MD Primary Care Provider [phone] Jt Vazquez PharmD Unavailable [phone] Encounter Details Date Type Department Care Team (Late st Contact Info) Description 05/25/2024 Orders Only [facility] [address] [place], [place] [phone] Phylicia Payne MD [address] [place], [place] [phone] Hematuria, unspecified type (Primary Dx); Pyuria; Essential [...] documented as of this encounter Care Teams Associate Professor Of Theatre Relationship Specialty Start Date End Date Phylicia Payne MD [address] [place] [address] PCP - General Family Medicine 09/28/18 Jt Vazquez, PharmD [address] [place] [address] Pharmacist Internal Medicine 01/26/23 documented as of this encounter
--- OUTSIDE RECORDS SUMMARY | 2024-11-08 11:42 | XMS_ITS | Clinical Summary ---
Author Organization [employer] Address 75 [facility] 7t [place] [address] Care Team Providers Care Field Contractor Name Role Phone Phylicia Payne MD Primary Care Provider [phone] Jt Vazquez PharmD Unavailable [phone] Allergies Active Allergy Reactions Criticality Noted Date [...] of candidiasis. Do not swallow. 1 each 4 11/11/19 25 Active atorvastatin (Lipitor) 10 [...] Pt w symptoms of vertigo Here + [place] cee pick maneuver today w normal neuro [...] -ACS work-up negative in Aug 2017 at [facility]. -Normal stress test in Oct [...] -ACS work-up negative in Aug 2017 at [facility]. -Normal stress test in Oct [...] -ACS work-up negative in Aug 2017 at [facility]. -Normal stress test in Oct [...] -ACS work-up negative in Aug 2017 at [facility]. -Normal stress test in Oct [...] -ACS work-up negative in Aug 2017 at [facility]. 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 -sleep study and CPAP titration study done in May 2018, pressure 13 cm recommended -seen by grain mixer and was prescribed CPAP again, autoPAP 6-20 cm H2O, last seen in Apr 2023 -continue treatment plan per grain mixer Assessment & Plan (11/14/2023 7:03 AM EST): -sleep study done in Apr 2017, which showed RO and recommended CPAP titration study. -sleep study and CPAP titration study done in May 2018, pressure 13 cm recommended -seen by grain mixer and was prescribed CPAP again, autoPAP 6-20 cm H2O, last seen in Apr 2023 -continue treatment plan per grain mixer Assessment & Plan (07/09/2023 9:03 AM EDT): -sleep study done in Apr 2017, which showed RO and recommended CPAP titration study. -sleep study and CPAP titration study done in May 2018, pressure 13 cm recommended -seen by grain mixer and was prescribed CPAP again, autoPAP 6-20 cm H2O, last seen in Apr 2023 -continue treatment plan per grain mixer Assessment & Plan (11/08/2022 7:04 AM EST): [...] Encounters Date Type Department Care Team Description 11/01/2024 Orders Only GENERIC EXTERNAL DATA DEPARTMENT Provider, Generic External Data 10/31/2024 9:00 AM EST Office Visit [facility] [address] [place] [address] Britney Omer NP Rib pain on right side (Primary Dx); Essential hypertension 10/18/2024 Orders Only [facility] External Provider, [facility] 08/08/2024 Telephone [facility] [address] [place], [place] [phone] Diane Vasquez [place] august recall from Last [...] 163/93(2024 8:51 AM EST) No Jt Vazquez, PharmD Note: Per JNC-8 62 year old patient without DM or CKD Procedures Procedure Name Priority Date/Time Associated Diagnosis Comments GROSS AND MICROSCOPIC LEVEL 3 Routine 11/01/2024 11:15 AM EST XR CHEST 2 VIEWS Routine 10/31/2024 9:38 [...] Recently Relevant to Health Maintenance Results * Gross and Microscopic Level 3 (11/01/2024 11:15 AM EST) 11/01/2024 11:1 5 AM EST 11/01/2024 12:00 PM EST Nuris [facility] - 11/02/2024 1:41 PM EST ----- ------- Name: Rodri Yeager ?Age/Sex: 64/M ? : 1960 Unit#: [id number] ?? Attend Dr: Dane Bernal MD ?Re11/01/24 ?Status: DEP REF ? Location: HO.LNP ?Disch: ? ----- ------- SPEC : [id number] ?RECD: 11/01/24-1200 ? STATUS: ??SOUT ? REQ NUM: [id number] ? SHARATH: 11/01/24-1115 ? SUBM DR: Dane Bernal MD ? ENTERED: ??11/01/24-6 ?SP TYPE: Surgical ? OTHR DR: Phylicia Payne MD ? ORDERED: ??Gross Micro L3 ? Diagnosis ?? Soft tissue, right mid lower back, excision: ??Angiolipoma. ?Clinical History Lipoma ?Microscopic Description Microscopic sections reviewed. ? Material Received ?? Right mid lower back lipoma ? Gross Description Received in formalin labeled ?right mid lower back is a 1.8 x 1.0 x 0.45 cm portion of peoples-yellow lobular adipose tissue. ??The margins are inked and the specimen is serially sectioned to reveal focally congested peoples-yellow lobular fat. ??No hemorrhagic or necrotic foci are identified. ??Cut Off Saw Tender Metal sections are submitted in a cassette labeled A1. CEDS Copies To: ?? Dane Bernal MD ?? [facility] ?? [address] ?? [place] [address] ?? [phone] ?? [email or web address] ?? Phylicia Payne MD ?? [facility] ?? [address] ?? [place] [address] ?? [phone] ----- ------- Signed (signature on file) Carmen Buck 11/02/24 1341 ? ----- ------- ? END OF REPORT ? us Generic External Data Provider LAB CYTOLOGY JIMENEZ SCHOFIELD Final Result Performing Organization Address City/State/[facility] Co de Phone Number [facility] [address] [place] [address] [phone] * XR Chest 2 Views (10/31/2024 9:38 AM EST) Anatomical Region Laterality Modality Chest Radiographic Vesna ging 10/31/2024 9:38 AM EST Narrative 10/31/2024 9:57 AM EST ?[facility] ?[address] ?[place] [address] ?XRay Report ? Signed ? Patient: Robert Love,Rodri L ?MR#: ?? [id number] ? : 1960 ?Acct:[id number] ? Age/Sex: 64 / M ?ADM Date: 10/31/25 ? Loc: HO.HHCX ? Attending Dr: Britney Omer CLOTH BLEACHING RANGE TENDER ? Ordering Physician: Britney Omer NP ?? Date of Service: 10/31/24 ?? Procedure(s): XR chest 2V ?? Accession Number(s): [id number] ? cc: Britney Omer CLOTH BLEACHING RANGE TENDER ? EXAMINATION: ??XR CHEST 2 VIEWS ? [...] acute cardiopulmonary abnormality. ? Electronically signed by: ??Dimitir Butterfield MD ??10/31/2024 09:54 AM EST ?? RP ? Dictated By: ?Dimitri Butterfield MD ? Signed By: ?<Electronically signed by Dimitri Butterfield MD in OV> ?10/31/24 0954 ? DD/ 0938 ? TD/TT: 10/31/24 0948 ? Paint Roller Cover Machine Setter: ? Procedure Note Tessa, Kell - 10/31/2024 [place] [address] XRay Report Signed Patient: Rordi Yeager LMR#: [id number] : 1960cct:[id number] Age/Sex: 64 / MADM Date: 10/31/24 Loc: HO.HHCX Attending Dr: Britney Omer NP Ordering Physician: Britney Omer NP Date of Service: 10/31/24 Procedure(s): XR chest 2V Accession Number(s): [id number] cc: Britney Omer CLOTH BLEACHING RANGE TENDER EXAMINATION: XR CHEST 2 VIEWS HISTORY: right [...] signed by Dimitri Butterfield MD in OV> 10/31/2454 DD/ 7 TD/TT: 10/31/24947 Paint Roller Cover Machine Setter: us Britney Omer CLOTH BLEACHING RANGE TENDER IMG XR PROCEDURES Final Result * US Abdomen Limited (10/19/2024 5:40 AM EST) Anatomical Region Laterality Modality Abdomen Ultrasound 10/19/2024 5:40 AM EST Narrative 10/19/2024 5:42 AM EST ? [facility] ?[address] ?[place] [address] ? Ultrasound Report ? Signed ? Patient: Rodri Yeager L ?MR#: ?? [id number] ? : 1960 ?Acct:[id number] ? Age/Sex: 64 / M ?ADM Date: 10/18/24 ? Loc: HO.US ? Attending Dr: aDne Bernal MD ? Ordering Physician: Dane Bernal MD ?? Date of Service: 10/18/24 ?? Procedure(s): US abdomen limited ?? Accession Number(s): [id number] ? cc: Dane Bernal MD; Phylicia Payne [...] DD/ 0540 ? TD/TT: 10/19/24 0540 ? Paint Roller Cover Machine Setter: ? Procedure Note Donotuseinterpreter, Image - 10/19/[address] [address] Ultrasound Report Signed Patient: Rodri Yeager LMR#: [id number] : 2Acct:[id number] Age/Sex: 64 / MADM Date: 10/18/24 Loc: HO.US Attending Dr: Dane Bernal MD Ordering Physician: Dane Bernal MD Date of Service: 10/18/24 Procedure(s): US abdomen limited Accession Number(s): [id number] cc: Dane Bernal MD; Phylicia Payne MD [...] by Carlos Enrique Pham MD in OV> 10/19/24 0542 DD/ 9 TD/TT: 10/19/24539 Paint Roller Cover Machine Setter: us [facility] External Provider IMG US PROCEDURES Final Result * Hepatitis C Antibody with Reflex to HCV, RNA, Quantitative, Real-Time PCR (05/19/2024 10:50 AM EDT) Hepatitis C Antibody Nonreactive Nonreactive [facility] Comment:Antibodies to HCV no t detected; does not exclude early acuteHCV infection. Blood Venous blood specimen / Unknown 05/19/2024 10:50 AM EDT 05/19/2024 11:45 AM EDT Phylicia Payne MD LAB BLOOD ORDERABLES Final Resul t Performing Organization Address [facility] de Phone Number [facility] [address] [place] [phone] * (ABNORMAL) Lipid Panel with Reflex to Direct LDL (11/12/2023 11:10 AM EST) Pathologist [facility] Triglycerides 147 <150 mg/dL [facility] Comment:Desirable Triglyceri de: less than 150 mg/dLBorderline High Triglyceride 150-199 mg/dLHigh Triglyceride: 200-499 mg/dLVery High Triglyceride: greater than or equal to 5OO mg/dL Cholesterol 167 <200 mg/dL [facility] Comment:Desirable Cholestero l: less than 200 mg/dLBorderline High Cholesterol: 200-239 mg/dLHigh Cholesterol: greater than 239 mg/dL LDL Cholesterol Calculated 101(H) <100 mg/dL [facility] Comment:Desirable LDL: less than 100 mg/dLNear Optimal/Above Optimal LDL: 110- 129 mg/dLBorderline High LDL: 130-159 mg/dLHigh LDL: 160-189 mg/dLVery High LDL: greater than or equal to 190 mg/dL HDL Cholesterol 37(L) >40 mg/dL [facility] Comment:Desirable HDL: great er than 40 mg/dL Note: This HDL assay may give artificially low results in patients with liver disease. Blood 11/12/2023 11:1 0 AM EST 11/12/2023 1:06 PM EST us Phylicia Payne MD LAB BLOOD ORDERABLES Final Resul t Performing Organization Address [facility] Co de Phone Number [facility] [address] [place] [phone] from Last 3 Months or Most Recently Relevant to Health Maintenance Insurance MEDICARE Care Teams Field Contractor Relationship Specialty Start Date End Date Phylicia Payne MD [address] [place] [address] PCP - General Family Medicine 09/28/18 Jt Vazquez, ShaiD [address] [place] [address] Pharmacist Internal Medicine 01/26/23
--- OUTSIDE RECORDS SUMMARY | 2024-11-08 11:42 | XMS_ITS | Encounter Summary ---
Author Organization [employer] Address 75 [facility] 7t [place] [address] Care Team Providers Care Glass Selector Name Role Phone Phylicia Payne MD Primary Care Provider [phone] Jt Vazquez PharmD Unavailable [phone] Encounter Details Date Type Department Care Team (Late st Contact Info) Description 11/01/2024 Orders Only GENERIC EXTERNAL DATA DEPARTMENT Provider, Generic External Data Social History Tobacco Use Types Packs/Day Years [...] LEVEL 3 Routine 11/01/2024 11:15 AM EST documented in this encounter Results * Gross and Microscopic Level 3 (11/01/2024 11:15 AM EST) 11/01/2024 11:1 5 AM EST 11/01/2024 12:00 PM EST [facility] - 11/02/2024 1:41 PM EST ----- ------- Name: Rodri Yeager ?Age/Sex: 64/M ? : 1960 Unit#: [id number] ?? Attend Dr: Dane Bernal MD ?Re11/01/24 ?Status: DEP REF ? Location: HO.LNP ?Disch: ? ----- ------- SPEC : [id number] ?RECD: 11/01/24-1199 ? STATUS: ??SOUT ? REQ NUM: [id number] ? SHARATH: 11/01/24-1115 ? SUBM DR: Dane Bernal MD ? ENTERED: ??11/01/24-1216 ?SP TYPE: Surgical ? OTHR DR: Phylicia [...] ??No hemorrhagic or necrotic foci are identified. ??Quality Assurance Engineer sections are submitted in a cassette labeled A1. CEDS Copies To: ?? Dane Bernal MD ?? [facility] ?? [address] ?? [place] [address] ?? [phone] ?? [email or web address] ?? Phylicia Payne MD ?? [facility] ?? [address] [facility] ?? [place] [address] ?? [phone] ----- ------- Signed (signature on file) Carmen Jane 11/02/24 1341 ? ----- ------- ? END OF REPORT ? us Generic External Data Provider LAB CYTOLOGY JIMENEZ SCHOFIELD Final Result [facility] [address] [facility] [place] [phone] documented in this encounter Visit Diagnoses Not on filedocumented in this encounter Additional Health Concerns Assessment Noted Time PHQ-9 Depression Total Score: 0 05/19/20 24 10:03 AM EDT documented as of this encounter Care Teams Glass Selector Relationship Specialty Start Date End Date Phylicia Payne MD [address] [place] [address] PCP - General Family Medicine 09/28/18 Jt Vazquez, Alyce [address] [place] [address] Pharmacist Internal Medicine 01/26/23 documented as of this encounter
--- OUTSIDE RECORDS SUMMARY | 2024-11-08 11:42 | XMS_ITS | Encounter Summary ---
Author Organization [employer] Address 75 [facility] 7t [place] [address] Care Team Providers Care Pediatric Oncologist Name Role Phone Phylicia Payne MD Primary Care Provider [phone] Jt Vazquez PharmD Unavailable [phone] Reason for Visit * Reason Comments Med Refill Encounter Details Date Type Department Care Team (Late st Contact Info) Description 02/19/2024 Refill [facility] [address] [place], [place] [phone] Phylicia Payne MD [address] [place], [place] [phone] Dyslipidemia Social History Tobacco Use Types Packs/Day [...] documented as of this encounter Care Teams Pediatric Oncologist Relationship Specialty Start Date End Date Phylicia Payne MD [address] [place] [address] PCP - General Family Medicine 09/28/18 Jt Vazquez, Alyce [address] [place] [address] Pharmacist Internal Medicine 01/26/23 documented as of this encounter
--- OUTSIDE RECORDS SUMMARY | 2024-11-08 11:42 | XMS_ITS | Encounter Summary ---
Author Organization [employer] Address 75 [facility] 7t [place] [address] Care Team Providers Care Vamp Liner Name Role Phone Phylicia Payne MD Primary Care Provider Jt Vazquez PharmD Unavailable [phone] Encounter Details Date Type Department Care Team (Late st Contact Info) Description 10/31/2024 9:00 AM EST Office Visit [facility] [address] [place], [place] [phone] Britney Omer NP [address] [place], [place] [phone] Rib pain on right side (Primary Dx); [...] medications for this visit. Visit Conducted in: Congolese Translation by: Provided by [facility] staff member Sean REARDON , documented in [...] AM EST Narrative 10/31/2024 9:57 AM EST ?[facility] ?[address] ?[place] [address] ?XRay Report ? Signed ? Patient: Rodri Yeager ?MR#: ?? [id number] ? : 1960 ?Acct:[id number] ? Age/Sex: 64 / M ?ADM Date: 10/31/24 ? Loc: HO.HHCX ? Attending Dr: Britney Omer RACING MANAGER ? Ordering Physician: Britney Omer RACING MANAGER ?? Date of Service: 10/31/24 ?? Procedure(s): XR chest 2V ?? Accession Number(s): [id number] ? cc: Britney Omer RACING MANAGER ? EXAMINATION: ??XR CHEST 2 VIEWS ? [...] DD/ 0938 ? TD/TT: 10/31/24 0948 ? Director Of Pharmacy: ? Procedure Note Dondavid, Kell - 10/31/[address] [address] XRay Report Signed Patient: Rodri Yeager LMR#: [id number] : 2Acct:[id number] Age/Sex: 64 / MADM Date: 10/31/24 Loc: HO.HHCX Attending Dr: Britney Omer RACING MANAGER Ordering Physician: Britney Omer NP Date of Service: 10/31/24 Procedure(s): XR chest 2V Accession Number(s): [id number] cc: Britney Omer RACING MANAGER EXAMINATION: XR CHEST 2 VIEWS HISTORY: right [...] in OV> 10/31/24953 DD/ 7 TD/TT: 10/31/24947 Director Of Pharmacy: us Britney Omer RACING MANAGER IMG XR PROCEDURES Final Result documented in this encounter Visit Diagnoses Diagnosis Rib pain on right side- Primary Essential hypertension Unspecified essential hypertension documented in this encounter Additional Health Concerns Assessment Noted Time PHQ-9 Depression Total Score: 0 05/19/20 24 10:03 AM EDT documented as of this encounter Care Teams Vamp Liner Relationship Specialty Start Date End Date Phylicia Payne MD [address] [place] [address] PCP - General Family Medicine 09/28/18 Jt Vazquez, ShaiD [address] [place] [address] Pharmacist Internal Medicine 01/26/23 documented as of this encounter
--- OUTSIDE RECORDS SUMMARY | 2024-11-08 11:42 | XMS_ITS | Encounter Summary ---
Author Organization [employer] Address 75 [facility] 7t [place] [address] Care Team Providers Care Deputy County Clerk Name Role Phone Phylicia Payne MD Primary Care Provider [phone] Jt Vazquez PharmD Unavailable [phone] Encounter Details Date Type Department Care Team (Late st Contact Info) Description 10/18/2024 Orders Only [facility] External Provider, [facility] Social History Tobacco Use Types Packs/Day Years [...] EST Narrative 10/19/2024 5:42 AM EST ? [facility] ?[address] ?[place] [address] ? Ultrasound Report ? Signed ? Patient: Rodri Yeager ?MR#: ?? [id number] ? : 1960 ?Acct:[id number] ? Age/Sex: 64 / M ?ADM Date: 10/18/24 ? Loc: HO.US ? Attending Dr: Dane Bernal MD ? Ordering Physician: Dane Bernal MD ?? Date of Service: 10/18/24 ?? Procedure(s): US abdomen limited ?? Accession Number(s): [id number] ? cc: Dane Bernal MD; Phylicia Payne [...] DD/ 0540 ? TD/TT: 10/19/24 0540 ? Processor Solid Propellant: ? Procedure Note Donmontezcbniraliter, Image - 10/19/2024 [place] [address] Ultrasound Report Signed Patient: Rodri Yeager LMR#: [id number] : 1960cct:[id number] Age/Sex: 64 / MADM Date: 10/18/24 Loc: HO.US Attending Dr: Dane Bernal MD Ordering Physician: Dane Bernal MD Date of Service: 10/18/24 Procedure(s): US abdomen limited Accession Number(s): [id number] cc: Dane Bernal MD; Phylicia Payne MD [...] in OV> 10/19/2442 DD/ 9 TD/TT: 10/19/24539 Processor Solid Propellant: [facility] External Provider IMG PROCEDURES Final Result documented in this encounter Visit Diagnoses Not on filedocumented in this encounter Additional Health Concerns Assessment Noted Time PHQ-9 Depression Total Score: 0 05/19/20 24 10:03 AM EDT documented as of this encounter Care Teams Deputy County Clerk Relationship Specialty Start Date End Date Phylicia Payne MD [address] [place] [address] PCP - General Family Medicine 09/28/18 Jt Vazquez, PharmD [address] [place] [phone] Pharmacist Internal Medicine 01/26/23 documented as of this encounter
== END 2024-11-08 10:42 | disposition home or self-care (01) ==
PROVIDERS: PCP Family Medicine; Visit Provider Surgery
DX: D17.9 Benign lipomatous neoplasm, unspecified (principal); Z51.89 Encounter for other specified aftercare
CPT/HCPCS: 99024

== ENCOUNTER → 2024-11-08 10:29 | Outpatient (BNVA) | payer MEDICARE, SELFPAY | PROVIDERS: PCP Family Medicine; Visit Provider Surgery | DX: Z09 Encounter for follow-up examination after completed treatment for conditions other than malignant neoplasm (principal); Z98.890 Other specified postprocedural states | CPT/HCPCS: 99212 ==

== ENCOUNTER 2025-03-29 11:40 | Outpatient (REF) | payer MEDICARE, SELFPAY ==
--- OUTSIDE RECORDS SUMMARY | 2025-03-29 12:28 | XMS_ITS | Clinical Summary ---
Author Organization [employer] Address [address] [facility] [address] [place] [address] Care Team Providers Care Inspector Purchased Parts Name Role Phone Phylicia Payne MD Primary Care Provider [phone] Jt Vazquez PharmD Unavailable [phone] Allergies Active Allergy Reactions Criticality Noted Date Comments Jordan Inhibitors 09/26/2010 Other reaction(s): unspecified Medications albuterol (2.5 MG/3ML) 0.083% nebulizer solutionIndicati ons:Moderate persistent asthma without complication Take 1 vial by nebulizer every 4 hours as needed for difficulty breathing 75 mL 3 3 Active aspirin 81 MG EC tablet Purchases OTC - 1 tablet daily Active albuterol 108 (90 Base) MCG/ACT inhalerIndicatio ns:Moderate persistent asthma without complication Inhale 2 puffs every 4 (four) hours if needed for wheezing or shortness of breath. 18 g 1 4 Active budesonide-formo terol (Symbicort) 160-4.5 MCG/ACT inhaler Inhale 2 puffs in the morning and at bedtime. Rinse mouth with water after use to reduce aftertaste and incidence of candidiasis. Do not swallow. 1 each 11 4 Active atorvastatin (Lipitor) 10 MG tabletIndication s:Dyslipidemia Take 1 tablet by mouth at bedtime 90 tablet 3 4 Active torsemide (Demadex) 10 MG tablet Take 1 tablet (10 mg) by mouth Once per day. 90 tablet 3 4 025 Active amLODIPine (Norvasc) 5 MG tabletIndication s:Essential hypertension TAKE 1 Tablet BY MOUTH EVERY DAY 90 tablet 3 4 Active olmesartan (Benicar) 40 MG tablet Take 1 tablet (40 mg) by mouth Once per day. 90 tablet 3 5 026 Active losartan (Cozaar) 100 MG tabletIndication s:Essential hypertension TAKE 1 TABLET BY MOUTH ONCE DAILY 90 tablet 3 4 025 Discontin ued(Alter nicolle therapy) Active Problems Problem Noted Date Diagnosed Date [...] uncontrolled. Essential hypertension 08/07/2015 Assessment & Plan (03/29/2025 12:13 PM EDT): -Goal BP <130/80 per ACC/AHA -Co-managed with our pharmacist through [facility] -BP not at goal today -EKG normal in Aug 2017. -ACS work-up negative in Aug 2017 at [facility]. -Normal stress test in Oct 2017 -Currently using CPAP for RO. Improved adherence to CPAP -Discussed about the importance of lifestyle modification and medication adherence. -Check BP at home -Change losartan to olmesartan 40 mg daily. -Continue amlodipine 5 mg daily -Continue torsemide 10 mg daily -Continue ASA 81 mg daily -Follow up in 3 mo or sooner if any problem arises Assessment & Plan (10/31/2024 9:26 AM EST): Above goal today, denies chest pain Assessment & Plan (05/19/2024 10:36 AM EDT): -Goal BP < 150/90 per [facility]NC-8, <130/80 per ACC/AHA -Co-managed with our pharmacist through [facility] -BP not at goal today -EKG normal in Aug 2017. -ACS work-up negative in Aug 2017 at [facility]. -Normal stress test in Oct 2017 [...] -ACS work-up negative in Aug 2017 at [facility]. -Normal stress test in Oct 2017 [...] -ACS work-up negative in Aug 2017 at [facility]. -Normal stress test in Oct 2017 [...] -ACS work-up negative in Aug 2017 at [facility]. -Normal stress test in Oct 2017 [...] -ACS work-up negative in Aug 2017 at [facility]. -Normal stress test in Oct 2017 [...] seems to be due to untreated RO -[facility] is planning to evaluate him with PFT [...] seems to be due to untreated RO -[facility] is planning to evaluate him with PFT [...] seems to be due to untreated RO -[facility] is planning to evaluate him with PFT [...] seems to be due to untreated RO -[facility] is planning to evaluate him with PFT [...] RO -refer to sleep medicine clinic or coronary clinical specialist Osteoarthritis of finger 12/28/2014 Tubular adenoma [...] lifestyle modifications. Obesity 06/08/2012 Assessment & Plan (03/29/2025 12:14 PM EDT): - lifestyle modifications - Will try GLP-1 RA - Pt has hypertension, obesity, and RO - Pt will benefit from GLP1-RA treatment Assessment & Plan (05/23/2024 6:09 AM EDT): - lifestyle modifications - consider GLP-1 RA Obstructive sleep apnea syndrome 06/08/2012 Assessment & Plan (05/19/2024 10:16 AM EDT): -sleep study done in Apr 2017, which showed RO and recommended CPAP titration study. -sleep study and CPAP titration study done in May 2018, pressure 13 cm recommended -seen by fast food sales assistant and was prescribed CPAP again, autoPAP 6-20 cm H2O, last seen in Apr 2023 -continue treatment plan per fast food sales assistant Assessment & Plan (02/09/2024 10:15 AM EDT): -sleep study done in Apr 2017, which showed RO and recommended CPAP titration study. -sleep study and CPAP titration study done in May 2018, pressure 13 cm recommended -seen by fast food sales assistant and was prescribed CPAP again, autoPAP 6-20 cm H2O, last seen in Apr 2023 -continue treatment plan per fast food sales assistant Assessment & Plan (11/14/2023 7:03 AM EST): -sleep study done in Apr 2017, which showed RO and recommended CPAP titration study. -sleep study and CPAP titration study done in May 2018, pressure 13 cm recommended -seen by fast food sales assistant and was prescribed CPAP again, autoPAP 6-20 cm H2O, last seen in Apr 2023 -continue treatment plan per fast food sales assistant Assessment & Plan (07/09/2023 9:03 AM EDT): -sleep study done in Apr 2017, which showed RO and recommended CPAP titration study. -sleep study and CPAP titration study done in May 2018, pressure 13 cm recommended -seen by fast food sales assistant and was prescribed CPAP again, autoPAP 6-20 cm H2O, last seen in Apr 2023 -continue treatment plan per fast food sales assistant Assessment & Plan (11/08/2022 7:04 AM EST): [...] Encounters Date Type Department Care Team Description 03/29/2025 11:00 AM EDT Office Visit [facility] [address] [place] [phone] Phylicia Payne MD Dyslipidemia (Primary Dx); Essential hypertension; Obstructive sleep apnea syndrome; Moderate persistent asthma without complication; Impaired fasting glucose; Class 3 severe obesity due to excess calories with serious comorbidity and body mass index (BMI) of 40.0 to 44.9 in adult 03/29/2025 Travel 03/28/[address] [facility] [address] [place] [phone] Phylicia Payne MD CHART PREP 03/23/[address] [facility] [address] [place], [place] [phone] Phylicia Payne MD Pre-visit Planning (SDOH negative. Tobacco screening negative. ) 02/02/[address] [facility] [address] [place] [address] Phylicia Payne MD OUTREACH from Last 3 Months Immunizations Immunization Administration Dates Next Due Hep B, Adolescent [...] Date Recorded Patient Health Questionnaire-9 Score 0 03/29/2025 Patient Health Questionnaire-9 Score 0 03/29/2025 Last PHQ-9: Questionnaire Data Not on file 0 03/29/2025 Housing Stability Answer Date Recorded What is your housing situation today? I have supa [employer] 03/23/[address] you li ve. Do you have problems with any of the following? None of the above 03/23/2025 Food Insecurity Answer Date Recorded Within the past 12 months, y ou worried that your food would run out before you got money to buy more: Never True 03/23/2025 Within the past 12 months,th e food you bought just didn't last and you didn't have enough money to get more: Never True Transportation Answer Date Recorded In the past 12 months, has l ack of transportation kept you from medical appts, meetings, work or from getting things needed for daily living? No 03/23/2025 Utilities Answer Date Recorded In the past 12 months, has t he electric, gas, oil or water company threatened to shut off services in your home? No 03/23/2025 Depression Answer Date Recorded Patient Health Questionnaire-2 Score 0 03/29/2025 Internet Access Answer Date Recorded Internet Access Q1 Yes 03/23/2025 Internet Access Q2 Not on file 03/23/2025 Sex and Gender Information Value Date Recorded Sex Assigned at Male 07/28/2022 10:18 AM EDT Legal Sex Male 10:18 AM EDT Gender Identity Male 07/28/2022 10:18 AM EDT Sexual Orientation Straight 07/28/2022 10 :18 AM EDT Last Filed Vital Signs Vital Sign Reading Time Taken Comments Blood Pressure 158/90 03/29/2025 11:27 AM EDT Pulse 67 03/29/2025 10:51 AM EDT Temperature 36.4 C (97.5 F) 03/29/2025 10:51 AM EDT Respiratory Rate 16 03/29/2025 10:51 AM EDT Oxygen Saturation 96% 03/29/2025 10:51 AM EDT Inhaled Oxygen Concentration - - Weight 122 kg (268 lb 3.2 oz) 03/29/2025 10:51 A M EDT Height 167.6 cm (5' 6 ) 03/29/2025 10:51 AM EDT Body Mass Index 43.29 03/29/2025 10:51 AM EDT Plan of Treatment Health Maintenance Due Date Last Done Comments CT Colonography 1962 Colonoscopy 1962 Colorectal Cancer Screening 1962 FIT DNA/Cologuard 1962 FIT 1962 FOBT 1962 HIV Screening 1962 Sigmoidoscopy 1962 RSV Patients and Patients Aged 60 years or older (1 - Risk 60-74 years 1-dose series) 2022 COVID-19 Vaccine (2023- season) 2024 02/09/2024, 05/12/2022, 02/07/2021, Additional history exists Influenza Vaccine (#1) 2025 , 10/28/2022, 08/31/2020, Additional history exists SDOH Screening 03/23/2026 03/23/2025 Alcohol/Substance Use Screening 03/29/2026 03/29/2025 Depression Screening 03/29/2026 03/29/2025, 03/29/20 25 Disability Screening 03/29/2026 03/29/2025 Tobacco Screening 03/29/2026 03/29/2025 Lipid Panel 11/12/2028 11/12/2023, 12/30/2022 DTaP/Tdap/Td Vaccines [...] patient's age to complete this topic Meningococcal B Vaccine Aged Out No l onger eligible based on patient's age to complete [...] Author Blood Pressure < 150/90 Blood Pressure 158/90(2024 11:27 AM EDT) No Jt Vazquez, PharmD Note: Per [facility]8 62 year old patient without DM or CKD Procedures Procedure Name Priority Date/Time Associated Diagnosis Comments HEPATITIS C AB W/REFL TO HCV RNA, QN, PCR Routine 05/19/2024 10:50 AM EDT Abnormal AST and ALT LIPID PANEL WITH REFLEX TO DIRECT LDL Routine 11/12/2023 11:10 AM EST Dyslipidemia from Last 3 Months or Most Recently Relevant to Health Maintenance Results * Hepatitis C Antibody with Reflex to HCV, RNA, Quantitative, Real-Time PCR (05/19/2024 10:50 AM EDT) Hepatitis C Antibody Nonreactive Nonreactive [facility] Comment:Antibodies to HCV no t detected; does not exclude early acuteHCV infection. Blood Venous blood specimen / Unknown 05/19/2024 10:50 AM EDT 05/19/2024 11:45 AM EDT us Phylicia Payne MD LAB BLOOD ORDERABLES Final Resul t Performing Organization Address [facility] de Phone Number [facility] [address] [place] [address] [phone] * (ABNORMAL) Lipid Panel with Reflex to Direct LDL (11/12/2023 11:10 AM EST) Triglycerides 147 <150 mg/dL [facility] Comment:Desirable Triglyceri de: less than 150 mg/dLBorderline High Triglyceride 150-199 mg/dLHigh Triglyceride: 200-499 mg/dLVery High Triglyceride: greater than or equal to 5OO mg/dL Cholesterol 167 <200 mg/dL [facility] Comment:Desirable Cholestero l: less than 200 mg/dLBorderline High Cholesterol: 200-239 mg/dLHigh Cholesterol: greater than 239 mg/dL LDL Cholesterol Calculated 101(H) <100 mg/dL [facility] Comment:Desirable LDL: less than 100 mg/dLNear Optimal/Above Optimal LDL: 110- 129 mg/dLBorderline High LDL: 130-159 mg/dLHigh LDL: 160-189 mg/dLVery High LDL: greater than or equal to 190 mg/dL HDL Cholesterol 37(L) >40 mg/dL [facility] Comment:Desirable HDL: great er than 40 mg/dL Note: This HDL assay may give artificially low results in patients with liver disease. Blood 11/12/2023 11:1 0 AM EST 11/12/2023 1:06 PM EST Phylicia Payne MD LAB BLOOD ORDERABLES Final Resul t Performing Organization Address [facility] Co de Phone Number [facility] [address] [place] [address] [phone] from Last 3 Months or Most Recently Relevant to Health Maintenance Insurance MEDICARE Care Teams Inspector Purchased Parts Relationship Specialty Start Date End Date Phylicia Payne MD [address] [place], [place] [phone] PCP - General Family Medicine 09/28/18 Jt Vazquez, Alyce [address] [place], [place] [phone] Pharmacist Internal Medicine 01/26/23
[2025-03-29 13:04] LABS: MANUAL DIFF FLAG NO
[2025-03-29 13:28] LABS: Alanine Aminotransferase 53 U/L (0-40); Albumin Level 4.5 g/dL (3.5-5.0); Alkaline Phosphatase 63 U/L (39-117); Anion Gap 12 (12-20); Aspartate Amino Transferase 31 U/L (5-37); Blood Urea Nitrogen 16 mg/dL (9-16); Calcium 9.1 mg/dL (8.4-10.2); Carbon Dioxide 29 mmol/L (22-29); Chloride 104 mmol/L (96-108); Cholesterol 166 mg/dL (<200); Estimated Glomerular Filt Rate > 60; HDL Cholesterol 30 mg/dL (>40); Potassium 3.7 mmol/L (3.3-5.1); Sodium 141 mmol/L (135-145); Total Protein 7.3 g/dL (6.5-8.0); Triglycerides 149 mg/dL (<150)
[2025-03-29 13:31] LABS: Hematocrit 46.8 % (42.0-52.0); Hemoglobin 16.3 g/dl (14.0-18.0); Imm Gran Abs Auto 0.02 X10*3/uL (0.00-0.03); Imm Gran Pct Auto 0.3 % (0.0-0.4); Lymphocytes Absolute Auto 1.6 X10*3/uL (1.2-4.9); Mean Corpuscular HGB Conc 34.8 g/dl (31.0-36.0); Mean Corpuscular Hemoglobin 30.9 pg (27.0-33.0); Mean Corpuscular Volume 88.8 fL (80.0-98.0); NRBC Abs Auto 0.000 X10*3/uL (0.0-0.012); NRBC Pct Auto 0.0 /100WBC (0.0-0.2); Platelet Count 220 X10*3/uL (160-400); Red Blood Count 5.27 X10*6/uL (4.60-5.80); White Blood Count 7.0 X10*3/uL (4.8-10.8)
[2025-03-29 13:42] LABS: Hemoglobin A1C 166.0275 umol/L; Total Hemoglobin (HGBA1C) 4264.2328 umol/L
[2025-03-29 14:27] LABS: Reflex LDLD? No
== END 2025-03-29 11:41 | disposition home or self-care (01) ==
LOC: HO.HHCL 11:40
PROVIDERS: Nurse Practitioner Family; PCP Family Medicine; Visit Provider Family Medicine
DX: R07.81 Pleurodynia (principal); R73.01 Impaired fasting glucose; E78.5 Hyperlipidemia, unspecified
CPT/HCPCS: 36415; 80053; 80061; 83036; 85025

== ENCOUNTER 2025-04-28 09:30 | Outpatient (REF) | payer MEDICARE, SELFPAY ==
--- OUTSIDE RECORDS SUMMARY | 2025-04-28 09:41 | XMS_ITS | Clinical Summary ---
Author Organization [employer] Address [address] [facility] [address] [place] [address] Care Team Providers Care Book Coverer Name Role Phone Phylicia Payne MD Primary Care Provider [phone] Jt Vazquez PharmD Unavailable [phone] Allergies Active Allergy Reactions Criticality Noted Date Comments Jordan Inhibitors 09/26/2010 Other reaction(s): unspecified Medications albuterol (2.5 MG/3ML) 0.083% nebulizer solutionIndicat ions:Moderate persistent asthma without complication Take 1 vial by nebulizer every 4 hours as needed for difficulty breathing 75 mL 3 10/28/19 23 Active albuterol 108 (90 Base) MCG/ACT inhalerIndicati ons:Moderate persistent asthma without complication Inhale 2 puffs every 4 (four) hours if needed for wheezing or shortness of breath. 18 g 1 10/21/19 24 Active torsemide (Demadex) 10 MG tablet Take 1 tablet (10 mg) by mouth Once per day. 90 tablet 3 05/19/20 24 025 Active amLODIPine (Norvasc) 5 MG tabletIndicatio ns:Essential hypertension TAKE 1 Tablet BY MOUTH EVERY DAY 90 tablet 3 05/19/20 24 Active olmesartan (Benicar) 40 MG tablet Take 1 tablet (40 mg) by mouth Once per day. 90 tablet 3 03/29/20 25 026 Active Tirzepatide-Hermann ght Management (Zepbound) 2.5 MG/0.5ML solution auto-injector Inject 0.5 mL (2.5 mg) under the skin 1 (one) time per week. 2 mL 11 03/29/20 25 Active atorvastatin (Lipitor) 20 MG tabletIndicatio ns:Dyslipidemia Take 1 tablet by mouth at bedtime 90 tablet 3 03/30/20 25 Active aspirin 81 MG EC tablet Take 1 tablet (81 mg) by mouth Once per day. 90 tablet 3 04/19/20 25 Active clotrimazole (Lotrimin) 1 % creamIndication s:Dermatophytos is of groin Apply topically 2 times daily for 7 days. 30 g 04/28/20 25 025 Active hydrocortisone (Anusol-HC) 2.5 % rectal creamIndication s:External hemorrhoids Insert into the rectum 2 times daily for 5 days. 28 g 1 04/28/20 25 025 Active aspirin 81 MG EC tablet Purchases OTC - 1 tablet daily 025 Discontinued(R eorder (will not trigger notification to Pharmacy)) budesonide-form oterol (Symbicort) 160-4.5 MCG/ACT inhaler Inhale 2 puffs in the morning and at bedtime. Rinse mouth with water after use to reduce aftertaste and incidence of candidiasis. Do not swallow. 1 each 11/12/19 24 025 Discontinued(M ed list cleanup (will not trigger notification to Pharmacy)) atorvastatin (Lipitor) 10 MG tabletIndicatio ns:Dyslipidemia Take 1 tablet by mouth at bedtime 90 tablet 3 11/14/19 24 025 Discontinued(R eorder (will not trigger notification to Pharmacy)) Active Problems Problem Noted Date Diagnosed Date [...] excisional biopsy BPPV (benign paroxysmal positional vertigo) 10/1 Vertigo 06/08/2023 Assessment & Plan (07/09/2023 9:20 AM EDT): - BPPV - improved Assessment & Plan (06/08/2023 6:48 PM EDT): Pt w symptoms of vertigo Here + [employer] c[employer] pick maneuver today w normal neuro [...] brain MRI Dyslipidemia 10/28/2022 Assessment & Plan (03/29/2025 7:49 PM EDT): - 03/29/25 TC 166; TG 149; HDL 30; LDL 107 -Current medication: Atorvastatin 10mg at bedtime (moderate intensity statin per guideline) -continue working on lifestyle modifications prn Assessment & Plan (02/09/2024 10:16 AM EDT): [...] -ACS work-up negative in Aug 2017 at [facility]. -Normal stress test in Oct 2017 [...] -ACS work-up negative in Aug 2017 at [facility]. -Normal stress test in Oct 2017 [...] -ACS work-up negative in Aug 2017 at [facility]. -Normal stress test in Oct 2017 [...] -ACS work-up negative in Aug 2017 at [facility]. -Normal stress test in Oct 2017 [...] -ACS work-up negative in Aug 2017 at [facility]. -Normal stress test in Oct 2017 [...] -ACS work-up negative in Aug 2017 at [facility]. -Normal stress test in Oct 2017 [...] problem arises Asthma 08/07/2015 Assessment & Plan (03/29/2025 7:47 PM EDT): -Last exacerbation requiring steroid use in September 2014, treated outpatient with prednisone -no Hx intubation, -RO -Reviewed maintenance medication and rescue medication. -Discontinue Flovent HFA 220 mcg -Start budesonide / formoterol (Symbicort) -Continue albuterol HFA prn as rescue. -Continue albuterol nebulizer treatment since pt feels better with nebulizer treatment -Overall, his dyspnea seems to be due to untreated RO -Inventory Worker is planning to evaluate him with PFT Assessment & Plan (05/19/2024 10:16 AM EDT): [...] seems to be due to untreated RO -Inventory Worker is planning to evaluate him with PFT [...] seems to be due to untreated RO -Inventory Worker is planning to evaluate him with PFT [...] seems to be due to untreated RO -Inventory Worker is planning to evaluate him with PFT [...] seems to be due to untreated RO -Inventory Worker is planning to evaluate him with PFT [...] RO -refer to sleep medicine clinic or case manager specialist 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 -Work on lifestyle modifications. Assessment & Plan (05/19/2024 10:17 AM EDT): [...] sleep apnea syndrome 06/08/2012 Assessment & Plan (03/29/2025 7:47 PM EDT): -sleep study done in Apr 2017, which showed RO and recommended CPAP titration study. -sleep study and CPAP titration study done in May 2018, pressure 13 cm recommended -seen by senior management consultant and was prescribed CPAP again, autoPAP 6-20 cm H2O, last seen in Apr 2023 -continue treatment plan per senior management consultant Assessment & Plan (05/19/2024 10:16 AM EDT): -sleep study done in Apr 2017, which showed RO and recommended CPAP titration study. -sleep study and CPAP titration study done in May 2018, pressure 13 cm recommended -seen by senior management consultant and was prescribed CPAP again, autoPAP 6-20 cm H2O, last seen in Apr 2023 -continue treatment plan per senior management consultant Assessment & Plan (02/09/2024 10:15 AM EDT): -sleep study done in Apr 2017, which showed RO and recommended CPAP titration study. -sleep study and CPAP titration study done in May 2018, pressure 13 cm recommended -seen by senior management consultant and was prescribed CPAP again, autoPAP 6-20 cm H2O, last seen in Apr 2023 -continue treatment plan per senior management consultant Assessment & Plan (11/14/2023 7:03 AM EST): -sleep study done in Apr 2017, which showed RO and recommended CPAP titration study. -sleep study and CPAP titration study done in May 2018, pressure 13 cm recommended -seen by senior management consultant and was prescribed CPAP again, autoPAP 6-20 cm H2O, last seen in Apr 2023 -continue treatment plan per senior management consultant Assessment & Plan (07/09/2023 9:03 AM EDT): -sleep study done in Apr 2017, which showed RO and recommended CPAP titration study. -sleep study and CPAP titration study done in May 2018, pressure 13 cm recommended -seen by senior management consultant and was prescribed CPAP again, autoPAP 6-20 cm H2O, last seen in Apr 2023 -continue treatment plan per senior management consultant Assessment & Plan (11/08/2022 7:04 AM EST): [...] Encounters Date Type Department Care Team Description 04/28/2025 9:20 AM EDT Office Visit [facility] [address] [place] [phone] Dermatophytosis of groin (Primary Dx); External hemorrhoids; Enlargement of scrotal sac 04/28/2025 Travel 04/19/2025 Travel 03/30/2025 Orders Only [address] [address] Phylicia Payne MD Dyslipidemia 03/29/2025 11:00 AM EDT Office Visit [address] [address] Phylicia Payne MD Dyslipidemia (Primary Dx); Essential hypertension; Obstructive sleep apnea syndrome; Moderate persistent asthma without complication; Impaired fasting glucose; Class 3 severe obesity due to excess calories with serious comorbidity and body mass index (BMI) of 40.0 to 44.9 in adult 03/29/2025 Orders Only [address] [address] Phylicia Payne MD Dyslipidemia (Primary Dx); Dietary counseling; Exercise counseling; Class 3 severe obesity due to excess calories with serious comorbidity and body mass index (BMI) of 40.0 to 44.9 in adult 03/29/2025 Results Follow-Up [address] [address] Phylicia Payne MD Lipid Panel with Reflex to Direct LDL, Hemoglobin A1c 03/29/2025 Travel 03/28/[address] [facility] [address] [place] [address] Phylicia Payne MD CHART PREP 03/23/2025 Patient Outreach [facility] [address] [place], [place] [phone] Phylicia Payne MD Pre-visit Planning (SDOH negative. Tobacco screening negative. ) 02/02/[address] [facility] [address] [place], [place] [phone] Phylicia Payne MD OUTREACH from Last 3 [...] Sign Reading Time Taken Comments Blood Pressure 153/93 04/28/2025 9:10 AM EDT Pulse 71 04/28/2025 9:10 AM EDT Temperature 36.6 C (97.9 F) 04/28/2025 9:10 AM EDT Respiratory Rate 17 04/28/2025 9:10 AM EDT Oxygen Saturation 97% 04/28/2025 9:10 AM EDT Inhaled Oxygen Concentration - - Weight 121 kg (266 lb) 04/28/2025 9:10 AM EDT Height 167.6 cm (5' 6 ) 03/29/2025 10:51 AM EDT Body Mass Index 42.93 03/29/2025 10:51 AM EDT Plan of Treatment Upcoming Encounters Date Type Department Care Team (Late st Contact Info) Description 05/09/2025 9:00 AM EDT Medication Management [facility] [address] [place] [address] Jt Vazquez, PharmD [address] [place] [address] Health Maintenance Due Date Last Done Comments [...] 03/29/2025 Depression Screening 03/29/2026 03/29/2025, 03/29/20 25 Diabetes: Hemoglobin A1C 03/29/2026 025, 05/19/2024, 12/30/2022, Additional history exists Disability Screening 03/29/2026 03/29/2025 Tobacco Screening 03/29/2026 03/29/2025 Lipid Panel 03/29/2030 03/29/2025, 10/29, 12/30/2022 DTaP/Tdap/Td Vaccines (3 - Td or Tdap) 07/07/2033 07/07/2023, 11/28/2011, 11/28/2008 Hepatitis B Vaccines Aged Out 05/14/2010, 11/30/2006, 09/25/2006 No longer eligible based on patient's age to complete this topic Pneumococcal Vaccine: 50+ Years Completed 03/02/2023, 05/14/2010 Zoster Vaccines Completed 06/18/2023, 03/02/2023 Hepatitis C Screening Completed 05/19/2024, 02/06/2 020 HIB Vaccines Aged Out No longer [...] Author Blood Pressure < 150/90 Blood Pressure 153/93(2024 9:10 AM EDT) Jt Garcia, PharmD Note: Per JNC-8 62 year old patient without DM or CKD Procedures Procedure Name Priority Date/Time Associated Diagnosis Comments HEMOGLOBIN A1C Routine 03/29/2025 12:04 PM EDT Impaired fasting glucose LIPID PANEL WITH REFLEX TO DIRECT LDL Routine 03/29/2025 12:04 PM EDT Dyslipidemia CBC WITH AUTO DIFFERENTIAL Routine 03/29/2025 12:04 PM EDT Rib pain on right side COMPREHENSIVE METABOLIC PANEL Routine 03/29/2025 12:04 PM EDT Rib pain on right side HEPATITIS C AB W/REFL TO HCV RNA, QN, PCR Routine 05/19/2024 10:50 AM EDT Abnormal AST and ALT from Last 3 Months or Most Recently Relevant to Health Maintenance Results * (ABNORMAL) Lipid Panel with Reflex to Direct LDL (03/29/2025 12:04 PM EDT) Triglycerides 149 <150 mg/dL [facility] Comment:Desirable Triglyceri de: less than 150 mg/dLBorderline High Triglyceride 150-199 mg/dLHigh Triglyceride: 200-499 mg/dLVery High Triglyceride: greater than or equal to 5OO mg/dL Cholesterol 166 <200 mg/dL [facility] Comment:Desirable Cholestero l: less than 200 mg/dLBorderline High Cholesterol: 200-239 mg/dLHigh Cholesterol: greater than 239 mg/dL LDL Cholesterol Calculated 107(H) <100 mg/dL [facility] Comment:Desirable LDL: less than 100 mg/dLNear Optimal/Above Optimal LDL: 110- 129 mg/dLBorderline High LDL: 130-159 mg/dLHigh LDL: 160-189 mg/dLVery High LDL: greater than or equal to 190 mg/dL HDL Cholesterol 30(L) >40 mg/dL [facility] Comment:Desirable HDL: great er than 40 mg/dL Note: This HDL assay may give artificially low results in patients with liver disease. Blood 03/29/2025 12:0 4 PM EDT 03/29/2025 1:01 PM EDT us Phylicia Payne MD LAB BLOOD ORDERABLES Final Resul t [facility] [address] [place] [phone] * CBC auto differential (03/29/2025 12:04 PM EDT) White Blood Count 7.0 4.8 - 10.8 X10*3/uL [facility] Red Blood Count 5.27 4.60 - 5.80 X10*6/uL [facility] Hemoglobin 16.3 14.0 - 18.0 g/dl [facility] Hematocrit 46.8 42.0 - 52.0 % [facility] Mean Corpuscular Volume 88.8 80.0 - 98.0 fL [facility] Mean Corpuscular Hemoglobin 30.9 27.0 - 33.0 pg [facility] Mean Corpuscular HGB Conc 34.8 31.0 - 36.0 g/dl [facility] Red Cell Distribution Width 13.9 11.0 - 16.0 % [facility] Platelet Count 220 160 - 400 X10*3/uL [facility] Mean Platelet Volume 10.8 9.4 - 12.4 fL [facility] Neutrophils Percent Auto 61.9 45 - 73 % [facility] Imm Gran Pct Auto 0.3 0.0 - 0.4 % [facility] Lymphocytes Percent Auto 23.4 20 - 40 % [facility] Monocytes Percent Auto 9.8 2 - 11 % [facility] Eosinophils Percent Auto 4.0 0 - 4 % [facility] Basophils Percent Auto 0.6 0 - 2 % [facility] NRBC Pct Auto 0.0 0.0 - 0.2 /100WBC [facility] Neutrophils Absolute Auto 4.3 2.0 - 8.3 x10*3/uL [facility] Imm Gran Abs Auto 0.02 0.00 - 0.03 X10*3/uL [facility] Lymphocytes Absolute Auto 1.6 1.2 - 4.9 X10*3/uL [facility] Monocytes Absolute Auto 0.7 0.1 - 1.2 X10*3/uL [facility] Eosinophils Absolute Auto 0.3 0.0 - 0.4 X10*3/uL [facility] Basophils Absolute Auto 0.0 0.0 - 0.2 X10*3/uL [facility] NRBC Abs Auto 0.000 0.0 - 0.012 X10*3/uL [facility] Blood Venous blood specimen / Unknown 03/29/2025 12:04 PM EDT 03/29/2025 1:01 PM EDT us Britney Omer DINING ROOM TABLES SET UP ATTENDANT LAB BLOOD ORDERABLES Final Resul t [facility] [address] [place] [address] [phone] * Hemoglobin A1c (03/29/2025 12:04 PM EDT) Hemoglobin A1c 5.7 <6.0 % [facility] Comment:Hemoglobin A1C Refer ence Range Adults: 4.8 - 6.0 % Non diabetic: < 6.0 % Goal: < 7.0 %Additional Action Suggested: > 8.0 %Note: Hemoglobin A1c results are invalid for patients with abnormal amounts of HbF. Blood transfusions may impact the HbA1c concentration in the patient sample. Estimated Average Glucose 117 mg/dL [facility] Comment:eAG = Estimated ave rage glucose which is %A1C expressed asaverage glucose, using the formula of the G1N-TrblaboQlqeyqq Glucose study (ADAG), Diabetes Care, Vol.31,#8,Apr. 2007 Blood Venous blood specimen / Unknown 03/29/2025 12:04 PM EDT 03/29/2025 1:01 PM EDT us Phylicia Payne MD LAB BLOOD ORDERABLES Final Resul t [facility] [address] [place] [address] [phone] * (ABNORMAL) Comprehensive Metabolic Panel (03/29/2025 12:04 PM EDT) Sodium 141 135 - 145 mmol/L [facility] Potassium 3.7 3.3 - 5.1 mmol/L [facility] Chloride 104 96 - 108 mmol/L [facility] Carbon Dioxide 29 22 - 29 mmol/L [facility] Anion Gap 12 12 - 20 [facility] Urea Nitrogen (BUN) 16 9 - 16 mg/dL [facility] Creatinine, Serum 0.94 0.5 - 1.4 mg/dL [facility] Estimated Glomerular Filt Rate >60 [facility] Comment:Chronic Kidney Disea se: Estimated GFR < 60 mL/min/[id number] Kidney Disease: Estimated GFR < 15 mL/min/1.73m2 Glucose 111 60 - 115 mg/dL [facility] Calcium 9.1 8.4 - 10.2 mg/dL [facility] Bilirubin, Total 1.4(H) 0.0 - 1.0 mg/dL [facility] Aspartate Amino Transferase 31 5 - 37 U/L [facility] Alanine Aminotransferase 53(H) 0 - 40 U/L [facility] Total Protein 7.3 6.5 - 8.0 g/dL [facility] Albumin Level 4.5 3.5 - 5.0 g/dL [facility] Alkaline Phosphatase 63 39 - 117 U/L [facility] Blood Venous blood specimen / Unknown 03/29/2025 12:04 PM EDT 03/29/2025 1:01 PM EDT us Britney Omer NP LAB BLOOD ORDERABLES Final Resul t Performing Organization Address [facility]/ZIP Co de Phone Number [facility] [address] [place] [address] [phone] * Hepatitis C Antibody with Reflex to HCV, RNA, Quantitative, Real-Time PCR (05/19/2024 10:50 AM EDT) Hepatitis C Antibody Nonreactive Nonreactive [facility] Comment:Antibodies to HCV no t detected; does not exclude early acuteHCV infection. Blood Venous blood specimen / Unknown 05/19/2024 10:50 AM EDT 05/19/2024 11:45 AM EDT us Phylicia Payne MD LAB BLOOD ORDERABLES Final Resul t Performing Organization Address [facility] Co de Phone Number [facility] [address] [place] [phone] from Last 3 Months or Most Recently Relevant to Health Maintenance Insurance MEDICARE Care Teams Book Coverer Relationship Specialty Start Date End Date Phylicia Payne MD [address] [place] [address] PCP - General Family Medicine 09/28/18 Jt Vazquez, ShaiD [address] [place] [address] Pharmacist Internal Medicine 01/26/23
[2025-04-28 12:45] LABS: Appearance Urine Clear; Glucose Urine UA Negative (Negative); PH 6.5 (5.0-9.0); Specific Gravity - Urine 1.015 (1.005-1.025); UMIC TRIGGER UACC YES
[2025-04-28 12:54] LABS: Microalbum/Creatinine Ratio Ur 30.0 ug/mg cr (<30)
[2025-04-28 12:55] LABS: Alanine Aminotransferase 40 U/L (0-40); Albumin Level 4.6 g/dL (3.5-5.0); Alkaline Phosphatase 68 U/L (39-117); Anion Gap 14 (12-20); Aspartate Amino Transferase 28 U/L (5-37); Blood Urea Nitrogen 14 mg/dL (9-16); Calcium 9.3 mg/dL (8.4-10.2); Carbon Dioxide 28 mmol/L (22-29); Chloride 104 mmol/L (96-108); Cholesterol 131 mg/dL (<200); Estimated Glomerular Filt Rate > 60; HDL Cholesterol 33 mg/dL (>40); Potassium 3.7 mmol/L (3.3-5.1); Sodium 142 mmol/L (135-145); Total Protein 7.6 g/dL (6.5-8.0); Triglycerides 92 mg/dL (<150)
== END 2025-04-28 09:31 | disposition home or self-care (01) ==
LOC: HO.HHCL 09:30
PROVIDERS: PCP Family Medicine; Visit Provider Family Medicine
DX: I10 Essential (primary) hypertension (principal); R31.9 Hematuria, unspecified; R82.81 Pyuria
CPT/HCPCS: 36415; 80048; 80061; 80076; 81001; 82043; 82570

== ENCOUNTER 2025-07-04 12:23 | Outpatient (REF) | payer MEDICARE, SELFPAY ==
--- NOTE | ~2025-07-04 | US_ITS ---
EXAMINATION: US RETROPERITONEUM HISTORY: HEMATURIA TECHNIQUE: Real-time grayscale ultrasound imaging of the kidneys was performed and images were reviewed. COMPARISON: There are no prior studies available for comparison. FINDINGS: Right kidney: The right kidney measures 11.8 x 5.4 x 6.2 cm. Renal parenchymal echotexture and thickness are normal. There is a 12 x 8 x 4 mm cyst at the lower pole and a 12 x 9 x 12 mm cyst in the mid to lower pole region. At the upper pole, there is a 2.2 x 2.1 x 1.9 cm hypoechoic lesion containing wall calcification and low level internal echoes which may represent a complex cyst. There is an 11 x 7 x 9 mm mid to lower pole calculus. There is no hydronephrosis. Left Kidney: The left kidney measures 11.2 x 5.1 x 5.1 cm. Renal parenchymal echotexture and thickness are normal. There is an upper pole cyst measuring 10 x 8 x 8 mm and the 3.9 x 3.1 x 2.9 cm cyst in the interpolar region. There is no hydronephrosis or renal calculi. The urinary bladder is unremarkable. Bilateral ureteral jets are identified. Before voiding, the urinary bladder measured 5.5 x 4.0 x 5.3 cm, for an estimated volume of 59.8 mL. After voiding, the urinary bladder measured 3.7 x 1.8 x 2.8 cm, for an estimated volume of 10 mL. The prostate measures 3.2 x 4.1 x 3.2 cm, for an estimated volume of 21.1 mL. US/US retroperitoneal comp IMPRESSION: 1. 11 x 7 x 9 mm nonobstructing calculus in a mid to lower pole calyx of the right kidney. 2. Bilateral renal cysts as described. There is a 2.2 x 2.1 x 1.9 cm complex appearing hypoechoic lesion containing wall calcification and low level internal echoes. While this may represent a cyst, renal protocol CT is recommended to exclude a solid mass. 3. Post void bladder residual of 10 mL. Please note that the bladder volume before voiding was only 59.8 mL. 4. Prostate volume of 21.1 mL. Electronically signed by: Dimitri Butterfield MD 07/04/2025 01:33 PM EDT
--- NOTE | ~2025-07-04 | US_ITS ---
EXAMINATION: US SCROTUM HISTORY: Patient with painless right scrotal enlargement.. COMPARISON: There are no prior studies available for comparison. FINDINGS: Real-time grayscale ultrasound imaging of the scrotum was performed. RIGHT TESTICLE: The right testis measures 4.8 x 1.8 x 2.5 cm and demonstrates dilatation of the rete testes, but otherwise normal homogeneous echotexture. There is a 9 x 7 x 8 mm cyst in the midportion of the testis containing a small amount of internal debris. The right testis demonstrates normal color Doppler flow. RIGHT EPIDIDYMIS: Normal in size, shape, and vascularity. There is a 3 mm epididymal head cyst. LEFT TESTICLE: The left testis measures 4.4 x 2.5 x 8.2 cm and demonstrates dilatation of the rete testes, but otherwise normal homogeneous echotexture. No masses are seen. The left testis demonstrates normal color Doppler flow. LEFT EPIDIDYMIS: There are multiple cysts in the region of the epididymal head measuring up to 2.6 x 2.0 x 2.7 cm. VARICOCELE: None. HYDROCELE: There is a fluid collection containing internal particulate debris in the right hemiscrotum measuring 6.1 x 5.7 x 5.6 cm. It is uncertain whether this represents a complex hydrocele or a cyst, perhaps of the epididymis. OTHER COMMENTS: None. US/US scrotum IMPRESSION: 1. 9 x 7 x 8 mm right testicular cyst containing a small amount of internal debris. 2. Bilateral epididymal head cysts, left greater than right. 3. 6.1 x 5.7 x 5.6 cm fluid collection in the right hemiscrotum containing internal debris. It is uncertain whether this represents a complex hydrocele or a cyst, perhaps of the epididymis. Electronically signed by: Dimitri Butterfield MD 07/04/2025 01:37 PM EDT
--- OUTSIDE RECORDS SUMMARY | 2025-07-04 15:17 | XMS_ITS | Encounter Summary ---
Author Organization [employer] Address [address] [facility] [address] [place] [address] Care Team Providers Care Engineering Design Manager Name Role Phone Phylicia Payne MD Primary Care Provider [phone] Jt Vazquez PharmD Unavailable [phone] Reason for Visit * Reason Comments Med Refill Encounter Details Date Type Department Care Team ([facility] st Contact Info) Description 02/19/2024 Refill [facility] [address] [place], [place] [phone] Phylicia Payne MD [address] [place], [place] [phone] Dyslipidemia Social History Tobacco Use Types Packs/Day [...] as of this encounter Plan of Treatment Upcoming Encounters Date Type Department Care Team (Late st Contact Info) Description 07/07/2025 11:00 AM EDT Medication Management [facility] [address] [place] [phone] Jt Vazquez, PharmD [address] [place] [phone] 07/17/2025 10:15 AM EDT Office Visit [facility] [address] [place] [phone] Phylicia Payne MD [address] [place] [phone] documented as of this encounter Goals Goal Patient Goal Type Associated Problems Recent Progress Patient-Stated? Author Blood Pressure < 150/90 Blood Pressure 153/93(2024 9:10 AM EDT) No Jt Vazquez, PharmD Note: Per JNC-8 62 year old patient without DM or CKD documented as of this encounter Visit Diagnoses Diagnosis Dyslipidemia Other and unspecified hyperlipidemia documented in this encounter Additional Health Concerns Assessment Noted Time PHQ-9 Depression Total Score: 0 02/09/20 24 10:12 AM EDT documented as of this encounter Care Teams Engineering Design Manager Relationship Specialty Start Date End Date Phylicia Payne MD [address] [place] [phone] PCP - General Family Medicine 09/28/18 Jt Vazquez, PharmD [address] [place] [phone] Pharmacist Internal Medicine 01/26/23 documented as of this encounter
--- OUTSIDE RECORDS SUMMARY | 2025-07-04 15:17 | XMS_ITS | Encounter Summary ---
Author Organization [employer] Address [address] [facility] [address] [place] [address] Care Team Providers Care Credit Collections Clerk Name Role Phone Phylicia Payne MD Primary Care Provider [phone] Jt Vazquez PharmD Unavailable [phone] Reason for Referral * Consultation (Routine) - Authorized Specialty Diagnoses / Procedures Referred By Breonna t Referred To Contact Urology Diagnoses Hematuria, unspecified type Phylicia Payne MD [address] [place] [address] Phone: tel: fax: [facility] Referral ID Status Reason Start Date Expiration Date Visits Requested Visits Authorized [id number] Authorized Specialty Services Required 04/28/2025 04/28/2026 1 1 * Imaging (Routine) - Authorized Specialty Diagnoses / Procedures Referred By Contac t Referred To Contact Radiology Diagnoses Hematuria, unspecified type Procedures US BLADDER Phylicia Payne MD [address] [place] [address] Phone: tel: fax: [facility] [address] [place], [place] Phone: tel: fax: Referral ID Status Reason Start Date Expiration Date V isits Requested Visits Authorized [id number] Authorized 04/28/2025 04/28/2026 1 1 * Imaging (Routine) - Authorized Specialty Diagnoses / Procedures Referred By Contac t Referred To Contact Radiology Diagnoses Hematuria, unspecified type Procedures US RENAL BI Phylicia Payne MD [address] [place] [address] Phone: tel: fax: [facility] [address] [place] [address] Phone: tel: fax: Referral ID Status Reason Start Date Expiration Date V isits Requested Visits Authorized [id number] Authorized 04/28/2025 04/28/2026 1 1 Encounter Details Date Type Department Care Team (Late st Contact Info) Description 04/28/2025 Orders Only [facility] [address] [place] [address] Phylicia Payne MD [address] [place] [address] Hematuria, unspecified type (Primary Dx) Social History Tobacco Use Types Packs/Day Years [...] Description 07/07/2025 11:00 AM EDT Medication Management [facility] [address] [place] [phone] Jt Vazquez, PharmShaunna [address] [place] [phone] 07/17/2025 10:15 AM EDT Office Visit [facility] [address] [place] [phone] Phylicia Payne MD [address] [place] [phone] Scheduled Orders Name Type Priority Associated Diagnoses Orde r Schedule US RENAL BI Imaging Routine Hematuria, unspecified type Expected: 04/28/2025, Expires: 04/28/2026 US BLADDER Imaging Routine Hematuria, unspecified type Expected: 04/28/2025, Expires: 04/28/2026 Scheduled Referrals Name Type Priority Associated Diagnoses Orde r Schedule Referral to Urology Outpatient Referral Routine Hematuria, unspecified type Expected: 04/28/2025 (Approximate), Expires: 04/28/2026 documented as of this encounter Goals Goal Patient Goal Type Associated Problems Recent Progress Patient-Stated? Author Blood Pressure < 150/90 Blood Pressure 153/93(2024 9:10 AM EDT) No Jt Vazquez, PharmD Note: Per JNC-8 62 year old patient without DM or CKD documented as of this encounter Visit Diagnoses Diagnosis Hematuria, unspecified type- Primary documented in this encounter Additional Health Concerns Assessment Noted Time PHQ-9 Depression Total Score: 0 03/29/20 25 10:48 AM EDT documented as of this encounter Care Teams Credit Collections Clerk Relationship Specialty Start Date End Date Phylicia Payne MD [address] [place] [address] PCP - General Family Medicine 09/28/18 Jt Vazquez, Alyce [address] [place] [address] Pharmacist Internal Medicine 01/26/23 documented as of this encounter
--- OUTSIDE RECORDS SUMMARY | 2025-07-04 15:17 | XMS_ITS | Encounter Summary ---
Author Organization [employer] Address [address] [facility] [address] [place] [address] Care Team Providers Care Corncob Pipes Assembler Name Role Phone Phylicia Payne MD Primary Care Provider [phone] Jt Vazquez PharmD Unavailable [phone] Encounter Details Date Type Department Care Team (Late st Contact Info) Description 06/02/2025 Orders Only [facility] [address] [place] [address] ProviderJanina MD Social History Tobacco Use Types Packs/Day Years [...] Description 07/07/2025 11:00 AM EDT Medication Management [address] [address] Jt Vazquez, PharmD [address] [place] [address] 07/17/2025 10:15 AM EDT Office Visit [facility] [address] [place] [address] Phylicia Payne MD [address] [place] [address] documented as of this encounter Goals Goal Patient Goal Type Associated Problems Recent Progress Patient-Stated? Author Blood Pressure < 150/90 Blood Pressure 153/93(2024 9:10 AM EDT) No Jt Vazquez, PharmShaunna Note: Per JNC-8 62 year old patient without DM or CKD documented as of this encounter Procedures Procedure Name Priority Date/Time Associated Diagnosis Comments COLONOSCOPY Routine 05/25/2025 1:30 PM EDT documented in this encounter Results * Colonoscopy (05/25/2025 1:30 PM EDT) Anatomical Region Laterality Modality Endoscopy us Historical Provider ENDOSCOPY PROCEDURE ORDER JEVON Final Result documented in this encounter Visit Diagnoses Not on filedocumented in this encounter Additional Health Concerns Assessment Noted Time PHQ-9 Depression Total Score: 0 03/29/20 25 10:48 AM EDT documented as of this encounter Care Teams Corncob Pipes Assembler Relationship Specialty Start Date End Date Phylicia Payne MD [address] [place] [address] PCP - General Family Medicine 09/28/18 Jt Vazquez, Alyce [address] [place] [address] Pharmacist Internal Medicine 01/26/23 documented as of this encounter
--- OUTSIDE RECORDS SUMMARY | 2025-07-04 15:17 | XMS_ITS | Clinical Summary ---
Author Organization [email or web address] Address [address] [facility] [address] [place] [address] Care Team Providers Care National Accounts Sales Name Role Phone Phylicia Payne MD Primary Care Provider [phone] Jt Vazquez PharmD Unavailable [phone] Allergies Active Allergy Reactions Criticality Noted Date Comments Jordan Inhibitors 09/26/2010 Other reaction(s): unspecified Medications albuterol (2.5 MG/3ML) 0.083% nebulizer solutionIndicatio ns:Moderate persistent asthma without complication Take 1 vial by nebulizer every 4 hours as needed for difficulty breathing 75 mL 3 3 Active albuterol 108 (90 Base) MCG/ACT inhalerIndication s:Moderate persistent asthma without complication Inhale 2 puffs every 4 (four) hours if needed for wheezing or shortness of breath. 18 g 1 4 Active olmesartan (Benicar) 40 MG tablet Take 1 tablet (40 mg) by mouth Once per day. 90 tablet 3 5 03/29/20 26 Active Tirzepatide-Weigh t Management (Zepbound) 2.5 MG/0.5ML solution auto-injector Inject 0.5 mL (2.5 mg) under the skin 1 (one) time per week. 2 mL 11 5 Active atorvastatin (Lipitor) 20 MG tabletIndications :Dyslipidemia Take 1 tablet by mouth at bedtime 90 tablet 3 5 Active aspirin 81 MG EC tablet Take 1 tablet (81 mg) by mouth Once per day. 90 tablet 3 5 Active torsemide (Demadex) 10 MG tablet TAKE 1 TABLET BY MOUTH ONCE DAILY 90 tablet 3 5 Active amLODIPine (Norvasc) 5 MG tabletIndications :Essential hypertension TAKE 1 TABLET BY MOUTH EVERY DAY 90 tablet 3 5 Active Active Problems Problem Noted Date Diagnosed [...] -ACS work-up negative in Aug 2017 at [facility]. -Normal stress test in Oct [...] -ACS work-up negative in Aug 2017 at [facility]. -Normal stress test in Oct [...] -ACS work-up negative in Aug 2017 at [facility]. -Normal stress test in Oct [...] -ACS work-up negative in Aug 2017 at [facility]. -Normal stress test in Oct [...] -ACS work-up negative in Aug 2017 at [facility]. -Normal stress test in Oct [...] -ACS work-up negative in Aug 2017 at [facility]. 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 -sleep study and CPAP titration study done in May 2018, pressure 13 cm recommended -seen by sound controller and was prescribed CPAP again, autoPAP 6-20 cm H2O, last seen in Apr 2023 -continue treatment plan per sound controller Assessment & Plan (02/09/2024 10:15 AM EDT): -sleep study done in Apr 2017, which showed RO and recommended CPAP titration study. -sleep study and CPAP titration study done in May 2018, pressure 13 cm recommended -seen by sound controller and was prescribed CPAP again, autoPAP 6-20 cm H2O, last seen in Apr 2023 -continue treatment plan per sound controller Assessment & Plan (11/14/2023 7:03 AM EST): -sleep study done in Apr 2017, which showed RO and recommended CPAP titration study. -sleep study and CPAP titration study done in May 2018, pressure 13 cm recommended -seen by sound controller and was prescribed CPAP again, autoPAP 6-20 cm H2O, last seen in Apr 2023 -continue treatment plan per sound controller Assessment & Plan (07/09/2023 9:03 AM EDT): -sleep study done in Apr 2017, which showed RO and recommended CPAP titration study. -sleep study and CPAP titration study done in May 2018, pressure 13 cm recommended -seen by sound controller and was prescribed CPAP again, autoPAP 6-20 cm H2O, last seen in Apr 2023 -continue treatment plan per sound controller Assessment & Plan (11/08/2022 7:04 AM EST): [...] Encounters Date Type Department Care Team Description 06/19/2025 Orders Only [facility] [address] [place] [address] Janina Simmons MD 06/02/2025 Orders Only [facility] [address] [place], [place] [phone] Janina Simmons MD 05/24/2025 Refill [facility] [address] [place] [address] Phylicia Payne MD Essential hypertension 04/28/2025 9:20 AM EDT Office Visit [facility] [address] [place] [address] Haider Davila MD Dermatophytosis of groin (Primary Dx); External hemorrhoids; Enlargement of scrotal sac 04/28/2025 Orders Only [facility] [address] [place] [address] [place] [address] Phylicia Payne MD Hematuria, unspecified type (Primary Dx) 04/28/2025 Results Follow-Up [facility] [address] [place] [phone] Phylicia Payne MD Hepatic Function Panel, Basic Metabolic Panel, Lipid Panel, Standard 04/28/2025 Orders Only [facility] [address] [place] [address] [place] [address] Phylicia Payne MD 04/28/2025 Travel 04/19/2025 Travel from Last 3 Months Immunizations Immunization Administration [...] 11:00 AM EDT Medication Management [facility] [address] [place] [phone] Jt Vazquez, PharmD [address] [place], [place] [phone] 07/17/2025 10:15 AM EDT Office Visit [facility] [address] [place], [place] [phone] Phylicia Payne MD [address] [place], [place] [phone] Health Maintenance Due Date Last Done Comments CT Colonography 1960 FIT DNA/Cologuard 1960 FIT 1960 FOBT 1960 HIV Screening 1960 Sigmoidoscopy 1960 RSV Patients and Patients Aged 60 years or older (1 - Risk 60-74 years 1-dose series) 2022 COVID-19 Vaccine (2024- season) 2025 02/09/2024, 05/12/2022, 02/07/2021, Additional history exists Influenza Vaccine (#1) 2025 , 10/28/2022, 08/31/2020, Additional history exists SDOH Screening 03/23/2026 03/23/2025 Alcohol/Substance Use Screening 03/29/2026 03/29/2025 Depression Screening 03/29/2026 03/29/2025, 03/29/20 25 Diabetes: Hemoglobin A1C 03/29/2026 025, 05/19/2024, 12/30/2022, Additional history exists Disability Screening 03/29/2026 03/29/2025 Tobacco Screening 03/29/2026 03/29/2025 Lipid Panel 04/28/2030 04/28/2025, 07/0 10/2024, 11/12/2023, Additional history exists DTaP/Tdap/Td Vaccines (3 - Td or Tdap) 07/07/2033 07/07/2023, 11/28/2011, 11/28/2008 Colonoscopy 05/25/2035 05/25/2025 Colorectal Cancer Screening 05/25/2035 Hepatitis B Vaccines Aged Out 05/14/2010, 11/30/2006, [...] Name Priority Date/Time Associated Diagnosis Comments US SCROTUM Routine 07/04/2025 1:02 PM EDT Enlargement of scrotal sac US RETROPERITONEAL COMPLETE Routine 07/04/2025 12:41 PM EDT COLONOSCOPY Routine 05/25/2025 1:30 PM EDT ANATOMIC PATHOLOGY OUTREACH Routine 05/25/2025 11:39 AM EDT LIPID PANEL, STANDARD Routine 04/28/2025 9:39 AM EDT BASIC METABOLIC PANEL Routine 04/28/2025 9:39 AM EDT HEPATIC FUNCTION PANEL Routine 9:39 AM EDT URINALYSIS, COMPLETE, WITH REFLEX TO CULTURE Routine 04/28/2025 9:39 AM EDT Hematuria, unspecified type Pyuria ALBUMIN, RANDOM URINE W/CREATININE Routine 04/28/2025 9:39 AM EDT Essential hypertension HEMOGLOBIN A1C Routine 03/29/2025 12:04 PM EDT Impaired fasting glucose HEPATITIS C AB W/REFL TO HCV RNA, QN, PCR Routine 05/19/2024 10:50 AM EDT Abnormal AST and ALT from Last 3 Months or Most Recently Relevant to Health Maintenance Results * US Scrotum (07/04/2025 1:02 PM EDT) Anatomical Region Laterality Modality Body Ultrasound 07/04/2025 1:0 2 PM EDT Narrative 07/04/2025 1:40 PM EDT [place] [address] Ultrasound Report Signed Patient: Rodri Yeager MR#: [id number] : 1960 Acct:[id number] Age/Sex: 65 / M ADM Date: 07/04/25 Loc: HO.US Attending Dr: Phylicia Payne MD Ordering Physician: Haider Davila MD Date of Service: 07/04/25 Procedure(s): US scrotum Accession Number(s): [id number] cc: Haider Davila MD; Phylciia Payne MD Reason for Exam: Patient with painless right scrotal enlargement. EXAMINATION: US SCROTUM HISTORY: Patient with painless right scrotal enlargement.. COMPARISON: There are no prior studies available for comparison. FINDINGS: Real-time grayscale ultrasound imaging of the scrotum was performed. RIGHT TESTICLE: The right testis measures 4.8 x 1.8 x 2.5 cm and demonstrates dilatation of the rete testes, but otherwise normal homogeneous echotexture. There is a 9 x 7 x 8 mm cyst in the midportion of the testis containing a small amount of internal debris. The right testis demonstrates normal color Doppler flow. RIGHT EPIDIDYMIS: Normal in size, shape, and vascularity. There is a 3 mm epididymal head cyst. LEFT TESTICLE: The left testis measures 4.4 x 2.5 x 8.2 cm and demonstrates dilatation of the rete testes, but otherwise normal homogeneous echotexture. No masses are seen. The left testis demonstrates normal color Doppler flow. LEFT EPIDIDYMIS: There are multiple cysts in the region of the epididymal head measuring up to 2.6 x 2.0 x 2.7 cm. VARICOCELE: None. HYDROCELE: There is a fluid collection containing internal particulate debris in the right hemiscrotum measuring 6.1 x 5.7 x 5.6 cm. It is uncertain whether this represents a complex hydrocele or a cyst, perhaps of the epididymis. OTHER COMMENTS: None. US/US scrotum IMPRESSION: 1. 9 x 7 x 8 mm right testicular cyst containing a small amount of internal debris. 2. Bilateral epididymal head cysts, left greater than right. 3. 6.1 x 5.7 x 5.6 cm fluid collection in the right hemiscrotum containing internal debris. It is uncertain whether this represents a complex hydrocele or a cyst, perhaps of the epididymis. Electronically signed by: Dimitri Butterfield MD 07/04/2025 01:37 PM EDT Dictated By: Dimitri Butterfield MD Signed By: <Electronically signed by Dimitri Butterfield MD in OV> 07/04/25 1337 DD/ 1302 TD/TT: 07/04/25 1313 Field Sales Agent: Procedure Note Donotuseinterpreter, Image - 07/04/[address] [address] Ultrasound Report Signed Patient: Rodri Yeager LMR#: [id number] : 2Acct:[id number] Age/Sex: 65 / MADM Date: 07/04/25 Loc: HO.US Attending Dr: Phylicia Payne MD Ordering Physician: Haider Davila MD Date of Service: 07/04/25 Procedure(s): US scrotum Accession Number(s): [id number] cc: Haider Davila MD; Phylicia Payne MD Reason for Exam: Patient with painless right scrotal enlargement. EXAMINATION: US SCROTUM HISTORY: Patient with painless right scrotal enlargement.. COMPARISON: There are no prior studies available for comparison. FINDINGS: Real-time grayscale ultrasound imaging of the scrotum was performed. RIGHT TESTICLE: The right testis measures 4.8 x 1.8 x 2.5 cm and demonstrates dilatation of the rete testes, but otherwise normal homogeneous echotexture. There is a 9 x 7 x 8 mm cyst in the midportion of the testis containing a small amount of internal debris. The right testis demonstrates normal color Doppler flow. RIGHT EPIDIDYMIS: Normal in size, shape, and vascularity. There is a 3 mm epididymal head cyst. LEFT TESTICLE: The left testis measures 4.4 x 2.5 x 8.2 cm and demonstrates dilatation of the rete testes, but otherwise normal homogeneous echotexture. No masses are seen. The left testis demonstrates normal color Doppler flow. LEFT EPIDIDYMIS: There are multiple cysts in the region of the epididymal head measuring up to 2.6 x 2.0 x 2.7 cm. VARICOCELE: None. HYDROCELE: There is a fluid collection containing internal particulate debris in the right hemiscrotum measuring 6.1 x 5.7 x 5.6 cm. It is uncertain whether this represents a complex hydrocele or a cyst, perhaps of the epididymis. OTHER COMMENTS: None. US/US scrotum IMPRESSION: 1. 9 x 7 x 8 mm right testicular cyst containing a small amount of internal debris. 2. Bilateral epididymal head cysts, left greater than right. 3. 6.1 x 5.7 x 5.6 cm fluid collection in the right hemiscrotum containing internal debris. It is uncertain whether this represents a complex hydrocele or a cyst, perhaps of the epididymis. Electronically signed by: Dimitri Butterfield MD 07/04/2025 01:37 PM EDT RP Dictated By: Dimitri Butterfield MD Signed By: <Electronically signed by Dimitri Butterfield MD in OV> 07/04/25 1337 DD/ 1302 TD/TT: 07/04/25 1313 Field Sales Agent: us Haider Davila MD IMG US PROCEDURES Final Result * US Retroperitoneal Complete (07/04/2025 12:41 PM EDT) Anatomical Region Laterality Modality Ultrasound 07/04/2025 12:4 1 PM EDT Narrative 07/04/2025 1:36 PM EDT [place] [address] Ultrasound Report Signed Patient: Rodri Yeager MR#: [id number] : 1960 Acct:[id number] Age/Sex: 65 / M ADM Date: 07/04/25 Loc: .US Attending Dr: Phylicia Payne MD Ordering Physician: Phylicia Payne MD Date of Service: 07/04/25 Procedure(s): US retroperitoneal comp Accession Number(s): [id number] cc: Phylicia Payne MD Reason for Exam: HEMATURIA EXAMINATION: US RETROPERITONEUM HISTORY: HEMATURIA TECHNIQUE: Real-time grayscale ultrasound imaging of the kidneys was performed and images were reviewed. COMPARISON: There are no prior studies available for comparison. FINDINGS: Right kidney: The right kidney measures 11.8 x 5.4 x 6.2 cm. Renal parenchymal echotexture and thickness are normal. There is a 12 x 8 x 4 mm cyst at the lower pole and a 12 x 9 x 12 mm cyst in the mid to lower pole region. At the upper pole, there is a 2.2 x 2.1 x 1.9 cm hypoechoic lesion containing wall calcification and low level internal echoes which may represent a complex cyst. There is an 11 x 7 x 9 mm mid to lower pole calculus. There is no hydronephrosis. Left Kidney: The left kidney measures 11.2 x 5.1 x 5.1 cm. Renal parenchymal echotexture and thickness are normal. There is an upper pole cyst measuring 10 x 8 x 8 mm and the 3.9 x 3.1 x 2.9 cm cyst in the interpolar region. There is no hydronephrosis or renal calculi. The urinary bladder is unremarkable. Bilateral ureteral jets are identified. Before voiding, the urinary bladder measured 5.5 x 4.0 x 5.3 cm, for an estimated volume of 59.8 mL. After voiding, the urinary bladder measured 3.7 x 1.8 x 2.8 cm, for an estimated volume of 10 mL. The prostate measures 3.2 x 4.1 x 3.2 cm, for an estimated volume of 21.1 mL. US/US retroperitoneal comp IMPRESSION: 1. 11 x 7 x 9 mm nonobstructing calculus in a mid to lower pole calyx of the right kidney. 2. Bilateral renal cysts as described. There is a 2.2 x 2.1 x 1.9 cm complex appearing hypoechoic lesion containing wall calcification and low level internal echoes. While this may represent a cyst, renal protocol CT is recommended to exclude a solid mass. 3. Post void bladder residual of 10 mL. Please note that the bladder volume before voiding was only 59.8 mL. 4. Prostate volume of 21.1 mL. Electronically signed by: Dimitri Butterfield MD 07/04/2025 01:33 PM EDT Dictated By: Dimitri Butterfield MD Signed By: <Electronically signed by Dimitri Butterfield MD in OV> 07/04/25 1333 DD/ 1241 TD/TT: 07/04/25 1257 Field Sales Agent: Procedure Note Donotuseinterpreter, Image - 07/04/[address] [address] Ultrasound Report Signed Patient: Rodri Yeager LMR#: [id number] : 1960cct:[id number] Age/Sex: 65 / MADM Date: 07/04/25 Loc: .US Attending Dr: Phylicia Payne MD Ordering Physician: Phylicia Payne MD Date of Service: 07/04/25 Procedure(s): US retroperitoneal comp Accession Number(s): [id number] cc: Phylicia Payne MD Reason for Exam: HEMATURIA EXAMINATION: US RETROPERITONEUM HISTORY: HEMATURIA TECHNIQUE: Real-time grayscale ultrasound imaging of the kidneys was performed and images were reviewed. COMPARISON: There are no prior studies available for comparison. FINDINGS: Right kidney: The right kidney measures 11.8 x 5.4 x 6.2 cm. Renal parenchymal echotexture and thickness are normal. There is a 12 x 8 x 4 mm cyst at the lower pole and a 12 x 9 x 12 mm cyst in the mid to lower pole region. At the upper pole, there is a 2.2 x 2.1 x 1.9 cm hypoechoic lesion containing wall calcification and low level internal echoes which may represent a complex cyst. There is an 11 x 7 x 9 mm mid to lower pole calculus. There is no hydronephrosis. Left Kidney: The left kidney measures 11.2 x 5.1 x 5.1 cm. Renal parenchymal echotexture and thickness are normal. There is an upper pole cyst measuring 10 x 8 x 8 mm and the 3.9 x 3.1 x 2.9 cm cyst in the interpolar region. There is no hydronephrosis or renal calculi. The urinary bladder is unremarkable. Bilateral ureteral jets are identified. Before voiding, the urinary bladder measured 5.5 x 4.0 x 5.3 cm, for an estimated volume of 59.8 mL. After voiding, the urinary bladder measured 3.7 x 1.8 x 2.8 cm, for an estimated volume of 10 mL. The prostate measures 3.2 x 4.1 x 3.2 cm, for an estimated volume of 21.1 mL. US/US retroperitoneal comp IMPRESSION: 1. 11 x 7 x 9 mm nonobstructing calculus in a mid to lower pole calyx of the right kidney. 2. Bilateral renal cysts as described. There is a 2.2 x 2.1 x 1.9 cm complex appearing hypoechoic lesion containing wall calcification and low level internal echoes. While this may represent a cyst, renal protocol CT is recommended to exclude a solid mass. 3. Post void bladder residual of 10 mL. Please note that the bladder volume before voiding was only 59.8 mL. 4. Prostate volume of 21.1 mL. Electronically signed by: Dimitri Butterfield MD 07/04/2025 01:33 PM EDT RP Dictated By: Dimitri Butterfield MD Signed By: <Electronically signed by Dimitri Butterfield MD in OV> 07/04/25 1333 DD/ 1241 TD/TT: 07/04/25 1257 Field Sales Agent: Phylicia Payne MD IMG US PROCEDURES Final Result * Colonoscopy (05/25/2025 1:30 PM EDT) Anatomical Region Laterality Modality Endoscopy Historical Provider ENDOSCOPY PROCEDURE ORDER JEVON Final Result * Anatomic Pathology Outreach (05/25/2025 11:39 AM EDT) Tissue Historical Provider LAB PATHOLOGY ORDERABLES Final Result * (ABNORMAL) Urinalysis, Complete, with Reflex to Culture (04/28/2025 9:39 AM EDT) Color Urine Yellow [facility] Appearance Urine Clear [facility] PH 6.5 5.0 - 9.0 [facility] Glucose Urine UA Negative Negative mg/dL [facility] Urine Blood Small (1+)(A) Negative [facility] Specific [place] - Urine 1.015 1.005 - 1.025 [facility] Urine Protein Trace Neg-Trace mg/dL [facility] Urine Ketones Negative Negative mg/dL [facility] Nitrite Urine Negative Negative [facility] Leukocyte Esterase Urine Negative Negative [facility] RBC Urine 6-10(A) 0 - 2 /HPF [facility] Urine WBC 0-5 0 - 5 /HPF [facility] Urine Squamous Epithelial Cell 0-2 0 - 2 /HPF [facility] Urine Bacteria None Seen None Seen [facility] Hyaline Casts, Urine 0-2 0 - 2 /LPF [facility] Urine 04/28/2025 9:39 AM EDT 04/28/2025 11:56 AM EDT Narrative [facility] - 04/28/2025 12:56 PM EDT Urine, Clean Catch us Phylicia Payne MD LAB URINE ORDERABLES Final Resul t Performing Organization Address [facility] de Phone Number [facility] [address] [place] [phone] * (ABNORMAL) Albumin, Random Urine W/Creatinine (04/28/2025 9:39 AM EDT) Creatinine, Urine 129.91 mg/dL [facility] Microalbumin Urine 39.0 mg/L [facility] Microalbum Creatinine Ratio Ur 30.0(H) <30 ug/mg cr [facility] Comment:Albumin/Creatinine R atio Reference Ranges: Normal: < 30 ug/mg creatinine Microalbuminuria: 30 - 300 ug/mg creatinineClinical Albuminuria: > 300 ug/mg creatinine Urine 04/28/2025 9:39 AM EDT 04/28/2025 11:56 AM EDT us Phylicia Payne MD LAB URINE ORDERABLES Final Resul t Performing Organization Address [facility] Co de Phone Number [facility] [address] [place] [phone] * (ABNORMAL) Hepatic Function Panel (04/28/2025 9:39 AM EDT) Bilirubin, Total 1.4(H) 0.0 - 1.0 mg/dL [facility] Bilirubin, Direct 0.4 0.0 - 0.5 mg/dL [facility] Aspartate Amino Transferase 28 5 - 37 U/L [facility] Alanine Aminotransferase 40 0 - 40 U/L [facility] Total Protein 7.6 6.5 - 8.0 g/dL [facility] Albumin Level 4.6 3.5 - 5.0 g/dL [facility] Alkaline Phosphatase 68 39 - 117 U/L [facility] 04/28/2025 9:39 AM EDT 04/28/2025 12:11 PM EDT us Phylicia Payne MD LAB BLOOD ORDERABLES Final Resul t Performing Organization Address [facility] Co de Phone Number [facility] [address] [place] [phone] * (ABNORMAL) Lipid Panel, Standard (04/28/2025 9:39 AM EDT) Triglycerides 92 <150 mg/dL [facility] Comment:Desirable Triglyceri de: less than 150 mg/dLBorderline High Triglyceride 150-199 mg/dLHigh Triglyceride: 200-499 mg/dLVery High Triglyceride: greater than or equal to 5OO mg/dL Cholesterol 131 <200 mg/dL [facility] Comment:Desirable Cholestero l: less than 200 mg/dLBorderline High Cholesterol: 200-239 mg/dLHigh Cholesterol: greater than 239 mg/dL LDL Cholesterol Calculated 80 <100 mg/dL [facility] Comment:Desirable LDL: less than 100 mg/dLNear Optimal/Above Optimal LDL: 110- 129 mg/dLBorderline High LDL: 130-159 mg/dLHigh LDL: 160-189 mg/dLVery High LDL: greater than or equal to 190 mg/dL HDL Cholesterol 33(L) >40 mg/dL [facility] Comment:Desirable HDL: great er than 40 mg/dL Note: This HDL assay may give artificially low results in patients with liver disease. 04/28/2025 9:39 AM EDT 04/28/2025 12:11 PM EDT us Phylicia Payne MD LAB BLOOD ORDERABLES Final Resul t Performing Organization Address City/[facility]/ZIP Co de Phone Number [facility] [address] [place] [phone] * (ABNORMAL) Basic Metabolic Panel (04/28/2025 9:39 AM EDT) Pathologist [facility] Sodium 142 135 - 145 mmol/L [facility] Potassium 3.7 3.3 - 5.1 mmol/L [facility] Chloride 104 96 - 108 mmol/L [facility] Carbon Dioxide 28 22 - 29 mmol/L [facility] Anion Gap 14 12 - 20 [facility] Urea Nitrogen (BUN) 14 9 - 16 mg/dL [facility] Creatinine, Serum 0.91 0.5 - 1.4 mg/dL [facility] Estimated Glomerular Filt Rate >60 [facility] Comment:Chronic Kidney Disea se: Estimated GFR < 60 mL/min/1.53b4Rnbcwd Kidney Disease: Estimated GFR < 15 mL/min/1.73m2 Glucose 117(H) 60 - 115 mg/dL [facility] Calcium 9.3 8.4 - 10.2 mg/dL [facility] 04/28/2025 9:39 AM EDT 04/28/2025 12:11 PM EDT Phylicia Payne MD LAB BLOOD ORDERABLES Final Resul t [facility] [address] [place] [phone] * Hemoglobin A1c (03/29/2025 12:04 PM EDT) Pathologist [facility] Hemoglobin A1c 5.7 <6.0 % [facility] Comment:Hemoglobin A1C Refer ence Range Adults: 4.8 - 6.0 % Non diabetic: < 6.0 % Goal: < 7.0 %Additional Action Suggested: > 8.0 %Note: Hemoglobin A1c results are invalid for patients with abnormal amounts of HbF. Blood transfusions may impact the HbA1c concentration in the patient sample. Estimated Average Glucose 117 mg/dL [facility] Comment:eAG = Estimated ave rage glucose which is %A1C expressed asaverage glucose, using the formula of the V9G-VasdownEyhgfgn Glucose study (ADAG), Diabetes Care, Vol.31,#8,2007 Blood Venous blood specimen / Unknown 03/29/2025 12:04 PM EDT 03/29/2025 1:01 PM EDT us Phylicia Payne MD LAB BLOOD ORDERABLES Final Resul t Performing Organization Address [facility]/ZIP Co de Phone Number [facility] [address] [place] [phone] * Hepatitis C Antibody with Reflex to HCV, RNA, Quantitative, Real-Time PCR (05/19/2024 10:50 AM EDT) Hepatitis C Antibody Nonreactive Nonreactive [facility] Comment:Antibodies to HCV no t detected; does not exclude early acuteHCV infection. Blood Venous blood specimen / Unknown 05/19/2024 10:50 AM EDT 05/19/2024 11:45 AM EDT Phylicia Payne MD LAB BLOOD ORDERABLES Final Resul t Performing Organization Address [facility] Co de Phone Number [facility] [address] [place] [phone] from Last 3 Months or Most Recently Relevant to [place] [id number] Care Teams National Accounts Sales Relationship Specialty Start Date End Date Phylicia Payne MD [address] [place] [phone] PCP - General Family Medicine 09/28/18 Jt Vazquez, PharmD [address] [place] [phone] Pharmacist Internal Medicine 01/26/23
--- OUTSIDE RECORDS SUMMARY | 2025-07-04 15:17 | XMS_ITS | Encounter Summary ---
Author Organization [employer] Address [address] [facility] 7t [place] [address] Care Team Providers Care Guide Setter Name Role Phone Phylicia Payne MD Primary Care Provider [phone] Jt Vazquez PharmD Unavailable [phone] Encounter Details Date Type Department Care Team (Late st Contact Info) Description 05/25/2024 Orders Only [facility] MEDICINE [address] [place], [place] [phone] Phylicia Payne MD [address] [place], [place] [phone] Hematuria, unspecified type (Primary Dx); Pyuria; Essential [...] Description 07/07/2025 11:00 AM EDT Medication Management [facility] MEDICINE [address] [place] [phone] Jt Vazquez, PharmD [address] [place] [phone] 07/17/2025 10:15 AM EDT Office Visit [facility] MEDICINE [address] [place] [phone] Phylicia Payne MD [address] [place] [phone] documented as of this encounter Goals Goal Patient Goal Type Associated Problems Recent Progress Patient-Stated? Author Blood Pressure < 150/90 Blood Pressure 153/93(2024 9:10 AM EDT) No Jt Vazquez, PharmD Note: Per JNC-8 62 year old patient without DM or CKD documented as of this encounter Procedures Procedure Name Priority Date/Time Associated Diagnosis Comments URINALYSIS, COMPLETE, WITH REFLEX TO CULTURE Routine 04/28/2025 9:39 AM EDT Hematuria, unspecified type Pyuria ALBUMIN, RANDOM URINE W/CREATININE Routine 04/28/2025 9:39 AM EDT Essential hypertension documented in this encounter Results * (ABNORMAL) Urinalysis, Complete, with Reflex to Culture (04/28/2025 9:39 AM EDT) Color Urine Yellow [facility] Appearance Urine Clear [facility] PH 6.5 5.0 - 9.0 [facility] Glucose Urine UA Negative Negative mg/dL [facility] Urine Blood Small (1+)(A) Negative [facility] Specific [place] - Urine 1.015 1.005 - 1.025 [facility] Urine Protein Trace Neg-Trace mg/dL [facility] Urine Ketones Negative Negative mg/dL [facility] Nitrite Urine Negative Negative [facility] Leukocyte Esterase Urine Negative Negative [facility] RBC Urine 6-10(A) 0 - 2 /HPF [facility] Urine WBC 0-5 0 - 5 /HPF [facility] Urine Squamous Epithelial Cell 0-2 0 - 2 /HPF [facility] Urine Bacteria None Seen None Seen [facility] Hyaline Casts, Urine 0-2 0 - 2 /LPF [facility] Urine 04/28/2025 9:39 AM EDT 04/28/2025 11:56 AM EDT Narrative [facility] - 04/28/2025 12:56 PM EDT Urine, Clean Catch us Phylicia Payne MD LAB URINE ORDERABLES Final Resul t [facility] [address] [place] [phone] * (ABNORMAL) Albumin, Random Urine W/Creatinine (04/28/2025 9:39 AM EDT) Creatinine, Urine 129.91 mg/dL [facility] Microalbumin Urine 39.0 mg/L H [facility] Microalbum Creatinine Ratio Ur 30.0(H) <30 ug/mg cr [facility] Comment:Albumin/Creatinine R atio Reference Ranges: Normal: < 30 ug/mg creatinine Microalbuminuria: 30 - 300 ug/mg creatinineClinical Albuminuria: > 300 ug/mg creatinine Urine 04/28/2025 9:39 AM EDT 04/28/2025 11:56 AM EDT Phylicia Payne MD LAB URINE ORDERABLES Final Resul t [facility] [address] [place] [phone] documented in this encounter Visit Diagnoses Diagnosis Hematuria, unspecified type- Primary Pyuria Other nonspecific finding on examination of urine Essential hypertension Unspecified essential hypertension documented in this encounter Additional Health Concerns Assessment Noted Time PHQ-9 Depression Total Score: 0 05/19/20 24 10:03 AM EDT documented as of this encounter Care Teams Guide Setter Relationship Specialty Start Date End Date Phylicia Payne MD [address] [place] [address] PCP - General Family Medicine 09/28/18 Jt Vazquez, PharmD [address] [place] [phone] Pharmacist Internal Medicine 01/26/23 documented as of this encounter
--- OUTSIDE RECORDS SUMMARY | 2025-07-04 15:17 | XMS_ITS | Encounter Summary ---
Author Organization [employer] Address [address] [facility] 7t [place] [address] Care Team Providers Care Motion And Time Study Teacher Name Role Phone Phylicia Payne MD Primary Care Provider [phone] Jt Vazquez PharmD Unavailable [phone] Encounter Details Date Type Department Care Team (Late st Contact Info) Description 03/29/2025 Orders Only [facility] MEDICINE [address] [place], [place] [phone] Phylicia Payne MD [address] [place], [place] [phone] Dyslipidemia (Primary Dx); Dietary counseling; Exercise counseling; Class 3 severe obesity due to excess calories with serious comorbidity and body mass index (BMI) of 40.0 to 44.9 in adult Social History Tobacco Use Types Packs/Day Years [...] AM EDT documented as of this encounter Functional Status * Over the past 2 weeks, how often have you been bothered by any of the following problems? Question Answer Date of Assessment Author Patient Health Questionnaire -2 Score 0 03/29/2025 10:48 AM Alanna [place] * Little interest or pleasure in doing things Answer Date of Assessment Author Not at all 03/29/2025 10:48 AM Diane [place] * Feeling down, depressed, or hopeless Answer Date of Assessment Author Not at all 03/29/2025 10:48 AM Diane [place] * Trouble falling or staying asleep, or sleeping too much Answer Date of Assessment Author Not at all 03/29/2025 10:48 AM Diane [place] * Feeling tired or having little energy Answer Date of Assessment Author Not at all 03/29/2025 10:48 AM Diane [place] * Poor appetite or overeating Answer Date of Assessment Author Not at all 03/29/2025 10:48 AM Diane [place] * Feeling bad about yourself - or that you are a failure or have let yourself or your family down Answer Date of Assessment Author Not at all 03/29/2025 10:48 AM Diane [place] * Trouble concentrating on things, such as reading the newspaper or watching television Answer Date of Assessment Author Not at all 03/29/2025 10:48 AM Diane [place] * Moving or speaking so slowly that other people could have noticed? Or the opposite - being so fidgety or restless that you have been moving around a lot more than usual. Answer Date of Assessment Author Not at all 03/29/2025 10:48 AM Diane [place] MA * Thoughts that you would be better off or hurting yourself in some way Answer Date of Assessment Author Not at all 03/29/2025 10:48 AM Daine [place] * Patient Health Questionnaire-9 Score Answer Date of Assessment Author 0 03/29/2025 10:48 AM Diane [place] * Over the last 2 weeks, how often have you been bothered by any of the following problems? Question Answer Date of Assessment Author Feeling nervous, anxious, or on edge 0 03/29/2025 10:49 AM Alanna [place] MA Not being able to stop or control worrying 0 03/29/2025 10:49 AM Alanna [place] MA Worrying too much about different things 0 03/29/2025 10:49 AM Alanna [place] MA Trouble relaxing 0 03/29/2025 10:49 AM Diane [place] MA Being so restless that it is hard to sit still 0 03/29/2025 10:49 AM Alanna [place] MA Becoming easily annoyed or irritable 0 03/29/2025 10:49 AM Alanna [place] Feeling afraid as if somethi ng awful might happen 0 03/29/2025 10:49 AM Alanna [place] MA AYUSH-7 Total Score 0 03/29/2025 10:49 AM Diane [place] MA documented as of this encounter Plan of Treatment Upcoming Encounters Date Type Department Care Team (Late st Contact Info) Description 07/07/2025 11:00 AM EDT Medication Management [facility] MEDICINE [address] [place] [address] Jt Vazquez, PharmD [address] [place] [address] 07/17/2025 10:15 AM EDT Office Visit [facility] MEDICINE [address] [place] [phone] Phylicia Payne MD [address] [place] [address] Scheduled Orders Name Type Priority Associated Diagnoses Orde r Schedule Lipid Panel with Reflex to Direct LDL Lab Routine Dyslipidemia Expected: 06/29/2025 (Approximate), Expires: 03/29/2026 documented as of this encounter Goals Goal Patient Goal Type Associated Problems Recent Progress Patient-Stated? Author Blood Pressure < 150/90 Blood Pressure 153/93(2024 9:10 AM EDT) No Jt Vazquez, PharmD Note: Per JNC-8 62 year old patient without DM or CKD documented as of this encounter Visit Diagnoses Diagnosis Dyslipidemia- Primary Other and unspecified hyperlipidemia Dietary counseling Dietary surveillance and counseling Exercise counseling Class 3 severe obesity due to excess calories with serious comorbidity and body mass index (BMI) of 40.0 to 44.9 in adult (HCC) documented in this encounter Additional Health Concerns Assessment Noted Time PHQ-9 Depression Total Score: 0 03/29/20 25 10:48 AM EDT documented as of this encounter Care Teams Motion And Time Study Teacher Relationship Specialty Start Date End Date Phylicia Payne MD [facility] [place] [address] PCP - General Family Medicine 09/28/18 Jt Vazquez, PharmD [facility] [place], [place] [phone] Pharmacist Internal Medicine 01/26/23 documented as of this encounter
--- OUTSIDE RECORDS SUMMARY | 2025-07-04 15:17 | XMS_ITS | Encounter Summary ---
Author Organization [employer] Address [address] [facility] 7t [place] [address] Care Team Providers Care Weatherization Specialist Name Role Phone Phylicia Payne MD Primary Care Provider [phone] Jt Vazquez PharmD Unavailable [phone] Encounter Details Date Type Department Care Team (Late st Contact Info) Description 06/19/2025 Orders Only [facility] [address] [place] [address] ProviderJanina MD Social History Tobacco Use Types [...] Description 07/07/2025 11:00 AM EDT Medication Management [address] [address] Jt Vazquez, PharmD [address] [place] [address] 07/17/2025 10:15 AM EDT Office Visit [address] [address] Phylicia Payne MD [address] [place] [address] documented as of this encounter Goals Goal Patient Goal Type Associated Problems Recent Progress Patient-Stated? Author Blood Pressure < 150/90 Blood Pressure 153/93(2024 9:10 AM EDT) No Jt Vazquez, PharmShaunna Note: Per JNC-8 62 year old patient without DM or CKD documented as of this encounter Procedures Procedure Name Priority Date/Time Associated Diagnosis Comments US RETROPERITONEAL COMPLETE Routine 07/04/2025 12:41 PM EDT ANATOMIC PATHOLOGY OUTREACH Routine 05/25/2025 11:39 AM EDT documented in this encounter Results * US Retroperitoneal Complete (07/04/2025 12:41 PM EDT) Anatomical Region Laterality Modality Ultrasound 07/04/2025 12:4 1 PM EDT Narrative 07/04/2025 1:36 PM EDT [address] [address] Ultrasound Report Signed Patient: Rodri Yeager MR#: [id number] : 1960 Acct:[id number] Age/Sex: 65 / M ADM Date: 07/04/25 Loc: HO.US Attending Dr: Phylicia Payne MD Ordering Physician: Phylicia Payne MD Date of Service: 07/04/25 Procedure(s): US retroperitoneal comp Accession Number(s): [id number] cc: Phylicia Payne MD Reason for Exam: [...] 07/04/25 1333 DD/ 1241 TD/TT: 07/04/25 1257 Four H Agent: Procedure Note Donotuseinterpreter, Image - 07/04/2025 [place] [phone] Ultrasound Report Signed Patient: Rodri Yeager LMR#: [id number] : 2Acct:[id number] Age/Sex: 65 / MADM Date: 07/04/25 Loc: HO.US Attending Dr: Phylicia Payne MD Ordering Physician: Phylicia Payne MD Date of Service: 07/04/25 Procedure(s): US retroperitoneal comp Accession Number(s): [id number] cc: Phylicia Payne MD Reason for Exam: [...] 07/04/25 1333 DD/ 1241 TD/TT: 07/04/25 1257 Four H Agent: Phylicia Payne MD [facility] PROCEDURES Final Result * Anatomic Pathology Outreach (05/25/2025 11:39 AM EDT) Tissue Historical Provider LAB PATHOLOGY ORDERABLES Final Result documented in this encounter Visit Diagnoses Not on filedocumented in this encounter Additional Health Concerns Assessment Noted Time PHQ-9 Depression Total Score: 0 03/29/20 25 10:48 AM EDT documented as of this encounter Care Teams Weatherization Specialist Relationship Specialty Start Date End Date Phylicia Payne MD [address] [place] [address] PCP - General Family Medicine 09/28/18 Jt Vazquez, Alyce [address] [place] [address] Pharmacist Internal Medicine 01/26/23 documented as of this encounter
--- OUTSIDE RECORDS SUMMARY | 2025-07-04 15:17 | XMS_ITS | Encounter Summary ---
Author Organization [employer] Address [address] [facility] 7t [place] [address] Care Team Providers Care Assistant Director Of Residence Life Name Role Phone Phylicia Payne MD Primary Care Provider [phone] Jt Vazquez PharmD Unavailable Encounter Details Date Type Department Care Team (Late st Contact Info) Description 03/30/2025 Orders Only [facility] MEDICINE [address] [place], [place] [phone] Phylicia Payne MD [address] [place], [place] [phone] Dyslipidemia Social History Tobacco Use Types Packs/Day [...] Description 07/07/2025 11:00 AM EDT Medication Management [facility] MED[facility] [address] [place] [phone] Jt Vazquez PharmShaunna [address] [place] [address] 07/17/2025 10:15 AM EDT Office Visit [facility] MEDICINE [address] [place] [address] Phylicia Payne MD [address] [place] [address] documented as of this encounter Goals Goal [...] documented as of this encounter Care Teams Assistant Director Of Residence Life Relationship Specialty Start Date End Date Phylicia Payne MD [address] [place] [phone] PCP - General Family Medicine 09/28/18 Jt Vazquez, PharmD [address] [place] [phone] Pharmacist Internal Medicine 01/26/23 documented as of this encounter
== END 2025-07-04 12:24 | disposition home or self-care (01) ==
LOC: HO.US 12:23
PROVIDERS: PCP Family Medicine; Visit Provider Family Medicine
DX: N50.89 Other specified disorders of the male genital organs (principal)
CPT/HCPCS: 76770; 76870

== ENCOUNTER → 2025-07-04 12:29 | Outpatient (BNV) | payer MEDICARE, SELFPAY | PROVIDERS: PCP Family Medicine; Visit Provider Radiology Diagnostic Radiology | DX: N20.0 Calculus of kidney (principal); N28.1 Cyst of kidney, acquired; N44.2 Benign cyst of testis; N50.3 Cyst of epididymis | CPT/HCPCS: 76770; 76870 ==

== ENCOUNTER 2025-07-11 10:08 | Outpatient (REF) | payer MEDICARE, SELFPAY ==
--- NOTE | ~2025-07-11 | XR_ITS ---
EXAMINATION: XR CHEST 2 VIEWS HISTORY: Productive Cough and fever COMPARISON: Comparison is made with the prior examination dated 10/31/2024. FINDINGS: PA and lateral views of the chest are submitted. There is minimal subsegmental atelectasis versus scarring at the left lung base. The lungs are otherwise clear. There is no pleural effusion, pneumothorax, or pulmonary vascular congestion. The heart is normal in size. There is degenerative disc disease of the spine. XR/XR chest 2V IMPRESSION: No acute cardiopulmonary abnormality. Electronically signed by: Dimitri Butterfield MD 07/11/2025 11:08 AM EDT
--- OUTSIDE RECORDS SUMMARY | 2025-07-11 09:20 | XMS_ITS | Encounter Summary ---
Author Organization [employer] Address [address] [facility] [address]t [place] [address] Care Team Providers Care Belt Maker Name Role Phone Phylicia Payne MD Primary Care Provider [phone] Jt Vazquez PharmD Unavailable [phone] Reason for Visit * Reason Comments Cough Encounter Details Date Type Department Care Team ([facility] st Contact Info) Description 07/11/2025 9:20 AM EDT Office Visit [facility] WALK-IN [address] [address] Acute exacerbation of asthma with allergic rhinitis (Primary Dx); Cough in adult Social History Tobacco Use Types [...] Sign Reading Time Taken Comments Blood Pressure 158/86 07/11/2025 9:39 AM EDT Pulse 90 07/11/2025 9:39 AM EDT Temperature 36.8 C (98.3 F) 07/11/2025 9:39 AM EDT Respiratory Rate 18 07/11/2025 9:39 AM EDT Oxygen Saturation 97% 07/11/2025 9:39 AM EDT Inhaled Oxygen Concentration - - Weight 118 kg (261 lb) 07/11/2025 9:39 AM EDT Height - - Body Mass Index 42.13 03/29/2025 10:51 AM EDT documented in this encounter Plan of Treatment Upcoming Encounters Date Type Department Care Team (Late st Contact Info) Description 07/17/2025 10:15 AM EDT Office Visit [facility] MEDICINE [address] [place] [address] Phylicia Payne MD [address] [place] [address] documented as of this encounter Goals Goal Patient Goal Type Associated Problems Recent Progress Patient-Stated? Author Blood Pressure < 150/90 Blood Pressure 158/86(2024 9:39 AM EDT) Jt Garcia, PharmD Note: Per JNC-8 62 year old patient without DM or CKD documented as of this encounter Procedures Procedure Name Priority Date/Time Associated Diagnosis Comments XR CHEST 2 VIEWS STAT 07/11/2025 10:5 6 AM EDT Cough in adult POCT INFLUENZA B (ID NOW RAPID MOLECULAR) Routine 07/11/2025 9:46 AM EDT Cough in adult POCT INFLUENZA A (ID NOW RAPID MOLECULAR) Routine 07/11/2025 9:46 AM EDT Cough in adult POCT RAPID STREP A Routine 07/11/2025 9: 43 AM EDT Cough in adult POCT RAPID COVID ANTIGEN Routine 07/11/2025 9:42 AM EDT Cough in adult documented in this encounter Results * XR Chest 2 Views (07/11/2025 10:56 AM EDT) Anatomical Region Laterality Modality Chest Radiographic Vesna ging 07/11/2025 10:5 6 AM EDT Narrative 07/11/2025 11:11 [place] [address] XRay Report Signed Patient: Rodri Yeager MR#: [id number] : 1960 Acct:[id number] Age/Sex: 65 / M ADM Date: 07/11/25 Loc: HO.HHCX Attending Dr: Brandi Gutierrez MD Ordering Physician: Brandi Gutierrez MD Date of Service: 07/11/25 Procedure(s): XR chest 2V Accession Number(s): [id number] cc: Brandi Gutierrez MD; Phylicia Payne MD Reason for Exam: Producitve Cough and fever EXAMINATION: XR CHEST 2 VIEWS HISTORY: Productive Cough and fever COMPARISON: Comparison is made with the prior examination dated 10/31/2024. FINDINGS: PA and lateral views of the chest are submitted. There is minimal subsegmental atelectasis versus scarring at the left lung base. The lungs are otherwise clear. There is no pleural effusion, pneumothorax, or pulmonary vascular congestion. The heart is normal in size. There is degenerative disc disease of the spine. XR/XR chest 2V IMPRESSION: No acute cardiopulmonary abnormality. Electronically signed by: Dimitri Butterfield MD 07/11/2025 11:08 AM EDT RP Dictated By: Dimitri Butterfield MD Signed By: <Electronically signed by iDmitri Butterfield MD in OV> 07/11/25 1108 DD/ 1056 TD/TT: 07/11/25 110 Manager Compensation: Procedure Note Donotuseinterpreter, Image - 07/11/2025 [facility] [address] [place] [address] XRay Report Signed Patient: Rodri Yeager LMR#: [id number] : 1960cct:[id number] Age/Sex: 65 / MADM Date: 07/11/25 Loc: HO.HHCX Attending Dr: Brandi Gutierrez MD Ordering Physician: Brandi Gutierrez MD Date of Service: 07/11/25 Procedure(s): XR chest 2V Accession Number(s): [id number] cc: Brandi Gutierrez MD; Phylicia Payne MD Reason for Exam: Producitve Cough and fever EXAMINATION: XR CHEST 2 VIEWS HISTORY: Productive Cough and fever COMPARISON: Comparison is made with the prior examination dated 10/31/2024. FINDINGS: PA and lateral views of the chest are submitted. There is minimal subsegmental atelectasis versus scarring at the left lung base. The lungs are otherwise clear. There is no pleural effusion, pneumothorax, or pulmonary vascular congestion. The heart is normal in size. There is degenerative disc disease of the spine. XR/XR chest 2V IMPRESSION: No acute cardiopulmonary abnormality. Electronically signed by: Dimitri Butterfield MD 07/11/2025 11:08 AM EDT RP Dictated By: Dimitri Butterfield MD Signed By: <Electronically signed by Dimitri Butterfield MD in OV> 07/11/25 1108 DD/ 1056 TD/TT: 07/11/25 110 Manager Compensation: Brandi Gutierrez MD IMG XR PROCEDURES Final Resul t * Influenza B (ID NOW Rapid Molecular) (07/11/2025 9:46 AM EDT) [facility] Influenza B Negative Negative, Indeterminate [facility] Swab 07/11/2025 9:46 AM EDT Brandi Gutierrez MD POINT OF CARE TEST ENTER/EDIT ORDERABLES Final Result Performing Organization Address [facility]/ZIP Co de Phone Number [facility] [address] [place] [phone] * Influenza A (ID NOW Rapid Molecular) (07/11/2025 9:46 AM EDT) [facility] Influenza A Negative Negative, Indeterminate [facility] Swab 07/11/2025 9:46 AM EDT Brandi Gutierrez MD POINT OF CARE TEST ENTER/EDIT ORDERABLES Final Result Performing Organization Address City/[facility] Co de Phone Number [facility] [address] [place] [phone] * POCT rapid strep A manually resulted (07/11/2025 9:43 AM EDT) [facility] Rapid Strep A Screen Negative Negative, None Detected Swab 07/11/2025 9:43 AM EDT Brandi Gutierrez MD POINT OF CARE TEST ENTER/EDIT ORDERABLES Final Result * POCT Rapid COVID Ag (07/11/2025 9:42 AM EDT) [facility] Rapid COVID Ag Negative Swab 07/11/2025 9:42 AM EDT Brandi Gutierrez MD POINT OF CARE TEST ENTER/EDIT ORDERABLES Final Result documented in this encounter Visit Diagnoses Diagnosis Acute exacerbation of asthma with allergic rhinitis- Primary Cough in adult documented in this encounter Additional Health Concerns Assessment Noted Time PHQ-9 Depression Total Score: 0 03/29/20 25 10:48 AM EDT documented as of this encounter Care Teams Belt Maker Relationship Specialty Start Date End Date Phylicia Payne MD [address] [place] [address] PCP - General Family Medicine 09/28/18 Jt Vazquez, ShaiD [address] [place] [address] Pharmacist Internal Medicine 01/26/23 documented as of this encounter
--- OUTSIDE RECORDS SUMMARY | 2025-07-11 11:45 | XMS_ITS | Encounter Summary ---
Author Organization [employer] Address 75 [facility] 7t [place] [address] Care Team Providers Care Service And Repair Supervisor Name Role Phone Phylicia Payne MD Primary Care Provider [phone] Jt Vazquez PharmD Unavailable [phone] Reason for Visit * Reason Comments Med Refill Encounter Details Date Type Department Care Team ([facility] st Contact Info) Description 02/19/2024 Refill [facility] MEDICINE [address] [place], [place] [phone] Phylicia Payne MD [address] [place], [place] [phone] Dyslipidemia Social History Tobacco Use Types Packs/Day [...] Description 07/17/2025 10:15 AM EDT Office Visit [facility] MEDICINE [address] [place], [place] [phone] Phylicia Payne MD [address] [place], [place] [phone] documented as of this encounter Goals Goal Patient Goal Type Associated Problems Recent Progress Patient-Stated? Author Blood Pressure < 150/90 Blood Pressure 158/86(2024 9:39 AM EDT) No Jt Vazquez, Alyce Note: Per JNC-8 62 year old patient without DM or CKD documented as of this encounter Visit Diagnoses Diagnosis Dyslipidemia Other and unspecified hyperlipidemia documented in this encounter Additional Health Concerns Assessment Noted Time PHQ-9 Depression Total Score: 0 02/09/20 24 10:12 AM EDT documented as of this encounter Care Teams Service And Repair Supervisor Relationship Specialty Start Date End Date Phylicia Payne MD [address] [place] [address] [phone] PCP - General Family Medicine 09/28/18 Jt Vazquez, ShaiD [address] [place] [phone] Pharmacist Internal Medicine 01/26/23 documented as of this encounter
--- OUTSIDE RECORDS SUMMARY | 2025-07-11 11:45 | XMS_ITS | Encounter Summary ---
Author Organization [employer] Address 75 [facility] 7t [place] [address] Care Team Providers Care Makeup Artist Name Role Phone Phylicia Payne MD Primary Care Provider [phone] Jt Vazquez PharmD Unavailable [phone] Reason for Visit * Reason Comments Med Refill Encounter Details Date Type Department Care Team ([facility] st Contact Info) Description 07/10/2025 Refill [facility] MEDICINE [address] [place], [place] [phone] Phylicia Payne MD [address] [place], [place] [phone] Moderate persistent asthma without complication Social History Tobacco Use Types Packs/Day Years [...] Description 07/17/2025 10:15 AM EDT Office Visit [facility] MEDICINE [address] [place] [address] Phylicia Payne MD [address] [place] [address] documented as of this encounter Goals Goal Patient Goal Type Associated Problems Recent Progress Patient-Stated? Author Blood Pressure < 150/90 Blood Pressure 158/86(2024 9:39 AM EDT) No Jt Vazquez, Alyce Note: Per JNC-8 62 year old patient without DM or CKD documented as of this encounter Visit Diagnoses Diagnosis Moderate persistent asthma without complication documented in this encounter Additional Health Concerns Assessment Noted Time PHQ-9 Depression Total Score: 0 03/29/20 25 10:48 AM EDT documented as of this encounter Care Teams Makeup Artist Relationship Specialty Start Date End Date Phylicia Payne MD [address] [place] [phone] PCP - General Family Medicine 09/28/18 Jt Vazquez, ShaiD [address] [place] [address] Pharmacist Internal Medicine 01/26/23 documented as of this encounter
--- OUTSIDE RECORDS SUMMARY | 2025-07-11 11:45 | XMS_ITS | Encounter Summary ---
Author Organization [employer] Address 75 [facility] 7[address] [place] [address] Care Team Providers Care Rubber Grinder Name Role Phone Phylicia Payne MD Primary Care Provider [phone] Jt Vazquez PharmD Unavailable [phone] Reason for Referral * Consultation (Routine) - Authorized Specialty Diagnoses / Procedures Referred By Breonna shelton Referred To Contact Urology Diagnoses Hematuria, unspecified type Phylicia Payne MD [address] [place] [address] Phone: tel: fax: [facility] Referral ID Status Reason Start Date Expiration Date Visits Requested Visits Authorized [id number] Authorized Specialty Services Required 04/28/2025 04/28/2026 1 1 * Imaging (Routine) - Closed Specialty Diagnoses / Procedures Referred By Breonna shelton Referred To Contact Radiology Diagnoses Hematuria, unspecified type Procedures US BLADDER Phylicia Payne MD [address] [place] [address] Phone: tel: fax: [facility] [address] [place], [place] Phone: tel: fax: Referral ID Status Reason Start Date Expiration Date Visits Re quested Visits Authorized [id number] Closed 04/28/2025 04/28/2026 1 1 * Imaging (Routine) - Closed Specialty Diagnoses / Procedures Referred By Contneno t Referred To Contact Radiology Diagnoses Hematuria, unspecified type Procedures US RENAL BI Phylicia Payne MD [address] [place] [address] Phone: tel: fax: [facility] [address] [place] [address] Phone: tel: fax: Referral ID Status Reason Start Date Expiration Date Visits Re quested Visits Authorized [id number] Closed 04/28/2025 04/28/2026 1 1 Encounter Details Date Type Department Care Team (Late st Contact Info) Description 04/28/2025 Orders Only [facility] MEDICINE [address] [place] [address] Phylicia Payne MD [address] [place] [address] Hematuria, unspecified type (Primary Dx) Social History [...] Description 07/17/2025 10:15 AM EDT Office Visit [facility] MEDICINE [address] [place] [phone] Phylicia Payne MD [address] [place] [address] Scheduled Orders Name Type Priority Associated Diagnoses [...] 158/86(2024 9:39 AM EDT) No Jt Vazquez, ShaiD Note: Per JNC-8 62 year old patient without DM or CKD documented as of this encounter Visit Diagnoses Diagnosis Hematuria, unspecified type- Primary documented in this encounter Additional Health Concerns Assessment Noted Time PHQ-9 Depression Total Score: 0 03/29/20 25 10:48 AM EDT documented as of this encounter Care Teams Rubber Grinder Relationship Specialty Start Date End Date Phylicia Payne MD [address] [place] [address] PCP - General Family Medicine 09/28/18 Jt Vazquez, ShaiD [address] [place] [address] Pharmacist Internal Medicine 01/26/23 documented as of this encounter
--- OUTSIDE RECORDS SUMMARY | 2025-07-11 11:45 | XMS_ITS | Encounter Summary ---
Author Organization [employer] Address 75 [facility] 7t [place] [address] Care Team Providers Care Automotive Manufacturer Name Role Phone Phylicia Payne MD Primary Care Provider [phone] Jt Vazquez PharmD Unavailable [phone] Reason for Referral * Imaging (Routine) - Authorized Specialty Diagnoses / Procedures Referred By Contac t Referred To Contact Radiology Diagnoses Renal cyst Procedures CT Abdomen w/ Contrast Phylicia Payne MD [address] [place] [address] Phone: tel: fax: [address] Phone: tel: fax: Referral ID Status Reason Start Date Expiration Date V isits Requested Visits Authorized [id number] Authorized 07/05/2025 07/05/2026 1 1 Encounter Details Date Type Department Care Team (Late st Contact Info) Description 07/05/2025 Orders Only [facility] MEDICINE [address] [place], [place] [phone] Phylicia Payne MD [address] [place], [place] [phone] Renal cyst (Primary Dx) Social History Tobacco Use Types [...] Description 07/17/2025 10:15 AM EDT Office Visit [facility] MEDICINE [address] [place] [address] Phylicia Payne MD [address] [place] [address] Scheduled Orders Name Type Priority Associated Diagnoses Orde r Schedule CT Abdomen w/ Contrast Imaging Routine Renal cyst Expected: 07/05/2025, Expires: 07/05/2026 documented as of this encounter Goals Goal Patient Goal Type Associated Problems Recent Progress Patient-Stated? Author Blood Pressure < 150/90 Blood Pressure 158/86(2024 9:39 AM EDT) No Jt Vazquez, PharmD Note: Per JNC-8 62 year old patient without DM or CKD documented as of this encounter Visit Diagnoses Diagnosis Renal cyst- Primary Unspecified congenital cystic kidney disease documented in this encounter Additional Health Concerns Assessment Noted Time PHQ-9 Depression Total Score: 0 03/29/20 25 10:48 AM EDT documented as of this encounter Care Teams Automotive Manufacturer Relationship Specialty Start Date End Date Phylicia Payne MD [address] [place] [address] PCP - General Family Medicine 09/28/18 Jt Vazquez, PharmD [address] [place] [address] Pharmacist Internal Medicine 01/26/23 documented as of this encounter
--- OUTSIDE RECORDS SUMMARY | 2025-07-11 11:45 | XMS_ITS | Encounter Summary ---
Author Organization [employer] Address [address] [facility] 7t [place] [address] Care Team Providers Care Manager Utilization Management Name Role Phone Phylicia Payne MD Primary Care Provider Jt Vazquez PharmD Unavailable [phone] Encounter Details Date Type Department Care Team (Late st Contact Info) Description 07/07/2025 Telephone [facility] MEDICINE [address] [place], [place] [phone] Phylicia Payne MD [address] [place], [place] [phone] Social History Tobacco Use Types Packs/Day Years [...] AM EDT documented as of this encounter Miscellaneous Notes * Telephone Encounter - Lisa Martin - 07/07/2025 12:29 PM EDT FYI to PCP - patient discharged from [facility] - Hypertension effective today. Patient has had >2 consecutive canceled/no showed pharmacy visits and thus will be removed from the outreach list per existing workflow. A letter will be mailed to the patient. If, upon further discussion, you feel patient would benefit from & is agreeable to pharmacy services please issue a new referral to re-enroll. Thank you. documented in this encounter Plan of Treatment Upcoming Encounters Date Type Department Care Team (Late st Contact Info) Description 07/17/2025 10:15 AM EDT Office Visit [facility] MEDICINE [address] [place] [address] Phylicia Payne MD [address] [place] [address] documented as of this encounter Goals Goal Patient Goal Type Associated Problems Recent Progress Patient-Stated? Author Blood Pressure < 150/90 Blood Pressure 158/86(2024 9:39 AM EDT) Jt Garcia, PharmD Note: Per JNC-8 62 year old patient without DM or CKD documented as of this encounter Visit Diagnoses Not on filedocumented in this encounter Additional Health Concerns Assessment Noted Time PHQ-9 Depression Total Score: 0 03/29/20 25 10:48 AM EDT documented as of this encounter Care Teams Manager Utilization Management Relationship Specialty Start Date End Date Phylicia Payne MD [address] [place] [address] PCP - General Family Medicine 09/28/18 Jt Vazquez, ShaiD [address] [place] [address] Pharmacist Internal Medicine 01/26/23 documented as of this encounter
--- OUTSIDE RECORDS SUMMARY | 2025-07-11 11:45 | XMS_ITS | Encounter Summary ---
Author Organization [employer] Address 75 [facility] 7t [place] [address] Care Team Providers Care Medical Or Surgical Instrument Maker Name Role Phone Phylicia Payne MD Primary Care Provider [phone] Jt Vazquez PharmD Unavailable [phone] Encounter Details Date Type Department Care Team (Late st Contact Info) Description 03/30/2025 Orders Only [facility] MEDICINE [address] [place], [place] [phone] Phylicia Payne MD [address] [place], [place] [phone] Dyslipidemia Social History Tobacco Use Types Packs/Day [...] Description 07/17/2025 10:15 AM EDT Office Visit [facility] MEDICINE [address] [place] [address] Phylicia Payne MD [address] [place] [address] documented as of this encounter Goals Goal Patient Goal Type Associated Problems Recent Progress Patient-Stated? Author Blood Pressure < 150/90 Blood Pressure 158/86(2024 9:39 AM EDT) Jt Garcia, Alyce Note: Per JNC-8 62 year old patient without DM or CKD documented as of this encounter Visit Diagnoses Diagnosis Dyslipidemia Other and unspecified hyperlipidemia documented in this encounter Additional Health Concerns Assessment Noted Time PHQ-9 Depression Total Score: 0 03/29/20 25 10:48 AM EDT documented as of this encounter Care Teams Medical Or Surgical Instrument Maker Relationship Specialty Start Date End Date Phylicia Payne MD [address] [place], [place] [phone] PCP - General Family Medicine 09/28/18 Jt Vazquez, Alyce [address] [place] [phone] Pharmacist Internal Medicine 01/26/23 documented as of this encounter
--- OUTSIDE RECORDS SUMMARY | 2025-07-11 11:45 | XMS_ITS | Encounter Summary ---
Author Organization [employer] Address 75 [facility] 7t [place] [address] Care Team Providers Care Field Crop Ii Farmworker Name Role Phone Phylicia Payne MD Primary Care Provider Jt Vazquez PharmD Unavailable [phone] Encounter Details Date Type Department Care Team (Late st Contact Info) Description 06/19/2025 Orders Only [facility] [address] [place] [address] ProviderJanina MD Social History Tobacco Use Types [...] Description 07/17/2025 10:15 AM EDT Office Visit [facility] MEDICINE 230 [place], [place] [phone] Phylicia Payne MD 230 [place], [place] [phone] documented as of this encounter Goals Goal [...] PM EDT Narrative 07/04/2025 1:36 PM EDT [address] [address] Ultrasound Report Signed Patient: Rodri Yeager MR#: [id number] : 1960 Acct:[id number] Age/Sex: 65 / M ADM Date: 07/04/25 Loc: HO.US Attending Dr: Phylicia Payne MD Ordering Physician: Phylicia Payne MD Date of Service: 07/04/25 Procedure(s): US retroperitoneal comp Accession Number(s): [id number] cc: Phylicia Payne MD Reason for Exam: [...] 07/04/25 1333 DD/ 1241 TD/TT: 07/04/25 1257 Stacker Driver: Procedure Note Donotuseinterpreter, Image - 07/04/2025 [place] [address] Ultrasound Report Signed Patient: Rodri Yeager LMR#: [id number] : 2Acct:[id number] Age/Sex: 65 / MADM Date: 07/04/25 Loc: HO.US Attending Dr: Phylicia Payne MD Ordering Physician: Phylicia Payne MD Date of Service: 07/04/25 Procedure(s): US retroperitoneal comp Accession Number(s): [id number] cc: Phylicia Payne MD Reason for Exam: [...] 07/04/25 1333 DD/ 1241 TD/TT: 07/04/25 1257 Stacker Driver: Phylicia Payne MD [facility] US PROCEDURES Final Result * Anatomic Pathology Outreach (05/25/2025 11:39 AM EDT) Tissue Historical Provider LAB PATHOLOGY ORDERABLES Final Result documented in this encounter Visit Diagnoses Not on filedocumented in this encounter Additional Health Concerns Assessment Noted Time PHQ-9 Depression Total Score: 0 03/29/20 25 10:48 AM EDT documented as of this encounter Care Teams Field Crop Ii Farmworker Relationship Specialty Start Date End Date Phylicia Payne MD [address] [place] [address] PCP - General Family Medicine 09/28/18 Jt Vazquez, ShaiD [address] [place] [phone] Pharmacist Internal Medicine 01/26/23 documented as of this encounter
--- OUTSIDE RECORDS SUMMARY | 2025-07-11 11:45 | XMS_ITS | Encounter Summary ---
Author Organization [employer] Address 75 [facility] 7t [place] [address] Care Team Providers Care Paper Coating Machine Operator Name Role Phone Phylicia Payne MD Primary Care Provider [phone] Jt Vazquez PharmD Unavailable [phone] Encounter Details Date Type Department Care Team (Late st Contact Info) Description 05/25/2024 Orders Only [facility] MEDICINE [address] [place], [place] [phone] Phylicia Payne MD [address] [place], [place] [phone] Hematuria, unspecified type (Primary Dx); Pyuria; Essential [...] Description 07/17/2025 10:15 AM EDT Office Visit [facility] MEDICINE [address] [place], [place] [phone] Phylicia Payne MD [address] [place], [place] [phone] documented as of this encounter Goals Goal [...] (04/28/2025 9:39 AM EDT) Color Urine Yellow [facility] Appearance Urine Clear [facility] PH 6.5 5.0 - 9.0 [facility] Glucose Urine UA Negative Negative mg/dL [facility] Urine Blood Small (1+)(A) Negative [facility] Specific [place] - Urine 1.015 1.005 - 1.025 [facility] Urine Protein Trace Neg-Trace mg/dL [facility] Urine Ketones Negative Negative mg/dL [facility] Nitrite Urine Negative Negative [facility] Leukocyte Esterase Urine Negative Negative [facility] RBC Urine 6-10(A) 0 - 2 /HPF [facility] Urine WBC 0-5 0 - 5 /HPF [facility] Urine Squamous Epithelial Cell 0-2 0 - 2 /HPF [facility] Urine Bacteria None Seen None Seen [facility] Hyaline Casts, Urine 0-2 0 - 2 /LPF [facility] Urine 04/28/2025 9:39 AM EDT 04/28/2025 11:56 AM EDT Narrative [facility] - 04/28/2025 12:56 PM EDT Urine, Clean Catch us Phylicia Payne MD LAB URINE ORDERABLES Final Resul t Performing Organization Address City/[facility]/ZIP Co de Phone Number [facility] [address] [place] [phone] * (ABNORMAL) Albumin, Random Urine W/Creatinine (04/28/2025 9:39 AM EDT) Creatinine, Urine 129.91 mg/dL [facility] Microalbumin Urine 39.0 mg/L [facility] Microalbum Creatinine Ratio Ur 30.0(H) <30 ug/mg cr [facility] Comment:Albumin/Creatinine R atio Reference Ranges: Normal: < 30 ug/mg creatinine Microalbuminuria: 30 - 300 ug/mg creatinineClinical Albuminuria: > 300 ug/mg creatinine Urine 04/28/2025 9:39 AM EDT 04/28/2025 11:56 AM EDT us Phylicia Payne MD LAB URINE ORDERABLES Final Resul t [facility] [address] [place] [phone] documented in this encounter Visit Diagnoses Diagnosis Hematuria, unspecified type- Primary Pyuria Other nonspecific finding on examination of urine Essential hypertension Unspecified essential hypertension documented in this encounter Additional Health Concerns Assessment Noted Time PHQ-9 Depression Total Score: 0 05/19/20 24 10:03 AM EDT documented as of this encounter Care Teams Paper Coating Machine Operator Relationship Specialty Start Date End Date Phylicia Payne MD [address] [place] [phone] PCP - General Family Medicine 09/28/18 Jt Vazquez, ShaiD [address] [place] [phone] Pharmacist Internal Medicine 01/26/23 documented as of this encounter
--- OUTSIDE RECORDS SUMMARY | 2025-07-11 11:45 | XMS_ITS | Encounter Summary ---
Author Organization [employer] Address [address] [facility] 7t [place] [address] Care Team Providers Care Land Agent Name Role Phone Phylicia Payne MD Primary Care Provider [phone] Jt Vazquez PharmD Unavailable [phone] Encounter Details Date Type Department Care Team (Latest Contact Info) Description 07/11/2025 Travel Social History Tobacco Use Types Packs/Day Years [...] Description 07/17/2025 10:15 AM EDT Office Visit [facility] MEDICINE [address] [place] [address] Phylicia Payne MD [address] [place] [address] documented as of this encounter Goals Goal [...] documented as of this encounter Care Teams Land Agent Relationship Specialty Start Date End Date Phylicia Payne MD [address] [place] [address] PCP - General Family Medicine 09/28/18 Jt Vazquez, PharmD [address] [place] [address] Pharmacist Internal Medicine 01/26/23 documented as of this encounter
--- OUTSIDE RECORDS SUMMARY | 2025-07-11 11:45 | XMS_ITS | Encounter Summary ---
Author Organization [employer] Address [address] [facility] 7t [place] [address] Care Team Providers Care Wrapper Leaf Inspector Name Role Phone Phylicia Payne MD Primary Care Provider [phone] Jt Vazquez PharmD Unavailable [phone] Reason for Visit * Reason Comments Med Refill Encounter Details Date Type Department Care Team ([facility] st Contact Info) Description 07/10/2025 Refill [facility] MEDICINE [address] [place], [place] [phone] Phylicia Payne MD [address] [place], [place] [phone] Moderate persistent asthma without complication Social History [...] Description 07/17/2025 10:15 AM EDT Office Visit [facility] MEDICINE [address] [place] [address] Phylicia Payne MD [address] [place] [phone] documented as of this encounter Goals Goal [...] documented as of this encounter Care Teams Wrapper Leaf Inspector Relationship Specialty Start Date End Date Phylicia Payne MD [address] [place] [address] PCP - General Family Medicine 09/28/18 Jt Vazquez, ShaiD [address] [place] [phone] Pharmacist Internal Medicine 01/26/23 documented as of this encounter
--- OUTSIDE RECORDS SUMMARY | 2025-07-11 11:45 | XMS_ITS | Clinical Summary ---
Author Organization [employer] Address [address] [facility] 7[address] [place] [address] Care Team Providers Care Final Assembly And Packing Supervisor Name Role Phone Phylicia Payne MD Primary Care Provider [phone] Jt Vazquez PharmD Unavailable [phone] Allergies Active Allergy Reactions Criticality Noted Date Comments Jordan Inhibitors 09/26/2010 Other reaction(s): unspecified Medications olmesartan (Benicar) 40 MG tablet Take 1 tablet (40 mg) by mouth Once per day. 90 tablet 3 03/29/20 25 026 Active Tirzepatide-Hermann ght Management (Zepbound) 2.5 MG/0.5ML solution auto-injector Inject 0.5 mL (2.5 mg) under the skin 1 (one) time per week. 2 mL 03/29/20 25 Active atorvastatin (Lipitor) 20 MG tabletIndicatio ns:Dyslipidemia Take 1 tablet by mouth at bedtime 90 tablet 3 03/30/20 25 Active aspirin 81 MG EC tablet Take 1 tablet (81 mg) by mouth Once per day. 90 tablet 3 04/19/20 25 Active torsemide (Demadex) 10 MG tablet TAKE 1 TABLET BY MOUTH ONCE DAILY 90 tablet 3 05/24/20 25 Active amLODIPine (Norvasc) 5 MG tabletIndicatio ns:Essential hypertension TAKE 1 TABLET BY MOUTH EVERY DAY 90 tablet 3 05/24/20 25 Active albuterol 108 (90 Base) MCG/ACT inhalerIndicati ons:Moderate persistent asthma without complication INHALE 2 PUFFS BY MOUTH EVERY 4 HOURS NEEDED FOR WHEEZING OR SHORTNESS OF BREATH 18 g 07/10/20 25 Active albuterol (2.5 MG/3ML) 0.083% nebulizer solutionIndicat ions:Moderate persistent asthma without complication INHALE 1 AMPULE USING A NEBULIZER EVERY 4 HOURS NEEDED FOR DIFFICULTY BREATHING 75 mL 3 07/10/20 25 Active predniSONE (Deltasone) 20 MG tabletIndicatio ns:Acute exacerbation of asthma with allergic rhinitis Take 2 tablets (40 mg) by mouth Once per day for 5 days. 10 tablet 07/11/20 25 025 Active albuterol (2.5 MG/3ML) 0.083% nebulizer solutionIndicat ions:Moderate persistent asthma without complication Take 1 vial by nebulizer every 4 hours as needed for difficulty breathing 75 mL 3 10/28/19 23 025 Discontinued(R eorder (will not trigger notification to Pharmacy)) albuterol 108 (90 Base) MCG/ACT inhalerIndicati ons:Moderate persistent asthma without complication Inhale 2 puffs every 4 (four) hours if needed for wheezing or shortness of breath. 18 g 1 10/21/19 24 025 Discontinued Active Problems Problem Noted Date Diagnosed Date [...] -ACS work-up negative in Aug 2017 at [facility]. -Normal stress test in Oct [...] -ACS work-up negative in Aug 2017 at [facility]. -Normal stress test in Oct [...] -ACS work-up negative in Aug 2017 at [facility]. -Normal stress test in Oct [...] -ACS work-up negative in Aug 2017 at [facility]. -Normal stress test in Oct [...] -ACS work-up negative in Aug 2017 at [facility]. -Normal stress test in Oct [...] -ACS work-up negative in Aug 2017 at [facility]. 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 -sleep study and CPAP titration study done in May 2018, pressure 13 cm recommended -seen by manager alliance and was prescribed CPAP again, autoPAP 6-20 cm H2O, last seen in Apr 2023 -continue treatment plan per manager alliance Assessment & Plan (02/09/2024 10:15 AM EDT): -sleep study done in Apr 2017, which showed OR and recommended CPAP titration study. -sleep study and CPAP titration study done in May 2018, pressure 13 cm recommended -seen by manager alliance and was prescribed CPAP again, autoPAP 6-20 cm H2O, last seen in Apr 2023 -continue treatment plan per manager alliance Assessment & Plan (11/14/2023 7:03 AM EST): -sleep study done in Apr 2017, which showed RO and recommended CPAP titration study. -sleep study and CPAP titration study done in May 2018, pressure 13 cm recommended -seen by manager alliance and was prescribed CPAP again, autoPAP 6-20 cm H2O, last seen in Apr 2023 -continue treatment plan per manager alliance Assessment & Plan (07/09/2023 9:03 AM EDT): -sleep study done in Apr 2017, which showed RO and recommended CPAP titration study. -sleep study and CPAP titration study done in May 2018, pressure 13 cm recommended -seen by manager alliance and was prescribed CPAP again, autoPAP 6-20 cm H2O, last seen in Apr 2023 -continue treatment plan per manager alliance Assessment & Plan (11/08/2022 7:04 AM EST): [...] Encounters Date Type Department Care Team Description 07/11/2025 9:20 AM EDT Office Visit [facility] [address] [facility] [place] [address] Acute exacerbation of asthma with allergic rhinitis (Primary Dx); Cough in adult 07/11/2025 Travel 07/10/2025 Refill [facility] [address] [facility] [place] [address] Phylicia Payne MD Moderate persistent asthma without complication 07/10/2025 Refill [facility] [place] [address] Phylicia Payne MD Moderate persistent asthma without complication 07/07/2025 Telephone [facility] [place] [address] Phylicia Payne MD 07/05/2025 Results Follow-Up [facility] [address] [facility] [place] [address] Haider Davila MD US Scrotum 07/05/2025 Orders Only [facility] [place] [address] Phylicia Payne MD Renal cyst (Primary Dx) 07/05/2025 Results Follow-Up [facility] [address] [facility] [place] [address] Phylicia Payne MD US Retroperitoneal Complete 06/19/2025 Orders Only [employer] [facility] [place] [address] Janina Simmons MD 06/02/2025 Orders Only [place] [facility] [place] [address] Janina Simmons MD 05/24/2025 Refill [facility] [place] [address] Phylicia Payne MD Essential hypertension 04/28/2025 9:20 AM EDT Office Visit [facility] [address] [place] [address] Haider Davila MD Dermatophytosis of groin (Primary Dx); External hemorrhoids; Enlargement of scrotal sac 04/28/2025 Orders Only [facility] [address] [place] [address] Phylicia Payne MD Hematuria, unspecified type (Primary Dx) 04/28/2025 Results Follow-Up [facility] [address] [place] [address] Phylicia Payne MD Hepatic Function Panel, Basic Metabolic Panel, Lipid Panel, Standard 04/28/2025 Orders Only [facility] [address] [place] [address] [place] [address] Phylicia Payne MD 04/28/2025 Travel 04/19/2025 Travel [...] (261 lb) 07/11/2025 9:39 AM EDT Height 167.6 cm (5' 6 ) 03/29/2025 10:51 AM EDT Body Mass Index 42.13 03/29/2025 10:51 AM EDT Plan of Treatment Upcoming Encounters Date Type Department Care Team (Late st Contact Info) Description 07/17/2025 10:15 AM EDT Office Visit [facility] [address] [place] [address] Phylicia Payne MD [address] [place] [address] Health Maintenance Due Date Last Done Comments CT Colonography 1960 FIT DNA/Cologuard 1960 FIT 1960 FOBT 1960 HIV Screening 1960 Sigmoidoscopy 1960 RSV Patients and Patients Aged 60 years or older (1 - Risk 60-74 years 1-dose series) 2022 COVID-19 Vaccine ( season) 2025 02/09/2024, 05/12/2022, 02/07/2021, Additional history exists Influenza Vaccine (#1) 2025 , 10/28/2022, 08/31/2020, Additional history exists SDOH Screening 03/23/2026 03/23/2025 Alcohol/Substance Use Screening 03/29/2026 03/29/2025 Depression Screening 03/29/2026 03/29/2025, 03/29/20 25 Diabetes: Hemoglobin A1C 03/29/2026 025, 05/19/2024, 12/30/2022, Additional history exists Disability Screening 03/29/2026 03/29/2025 Tobacco Screening 07/11/2026 07/11/2025 Lipid Panel 04/28/2030 04/28/2025, 07/0 10/2024, 11/12/2023, [...] topic Meningococcal Vaccine Aged Out No rola joes eligible based on patient's age to complete [...] 07/11/2025 9:42 AM EDT Cough in adult US SCROTUM Routine 07/04/2025 1:02 PM EDT [...] Maintenance Results * XR Chest 2 Views (07/11/2025 10:56 AM EDT) Anatomical Region Laterality Modality Chest Radiographic Vesna ging 07/11/2025 10:5 6 AM EDT Narrative 07/11/2025 11:11 AM EDT [address] [address] XRay Report Signed Patient: Rodri Yeager MR#: [id number] : 1960 Acct:[id number] Age/Sex: 65 / M ADM Date: 07/11/25 Loc: HO.HHCX Attending Dr: Brandi Gutierrez MD Ordering Physician: Brandi Gutierrez MD Date of Service: 07/11/25 Procedure(s): XR chest 2V Accession Number(s): [id number] cc: rBandi Gutierrez MD; Phylicia Payne MD Reason for [...] OV> 07/11/25 1108 DD/ 1056 TD/TT: 07/11/25 1102 Director Of [facility] Care Hospice: Procedure Note Donotuseinterpreter, Image - 07/11/2025 [place] [address] XRay Report Signed Patient: Rodri Yeager LMR#: [id number] : 1960cct:[id number] Age/Sex: 65 / MADM Date: 07/11/25 Loc: HO.HHCX Attending Dr: Brandi Gutierrez MD Ordering Physician: Brandi Gutierrez MD Date of Service: 07/11/25 Procedure(s): XR chest 2V Accession Number(s): [id number] cc: Brandi Gutierrez MD; Phylicia Payne MD [...] OV> 07/11/25 1108 DD/ 1056 TD/TT: 07/11/25 1102 Director Of Home Care Hospice: Brandi Gutierrez MD IMG XR PROCEDURES Final Resul t * Influenza B (ID NOW Rapid Molecular) (07/11/2025 9:46 AM EDT) [facility] Influenza B Negative Negative, Indeterminate [facility] Swab 07/11/2025 9:46 AM EDT Brandi Gutierrez MD POINT OF CARE TEST ENTER/EDIT ORDERABLES Final Result Performing Organization Address [facility] Co de Phone Number [facility] [address] [place] [phone] * Influenza A (ID NOW Rapid Molecular) (07/11/2025 9:46 AM EDT) [facility] Influenza A Negative Negative, Indeterminate [facility] Swab 07/11/2025 9:46 AM EDT Brandi Gutierrez MD POINT OF CARE TEST ENTER/EDIT ORDERABLES Final Result Performing Organization Address [facility] Co de Phone Number [facility] [address] [place] [phone] * POCT rapid strep A manually resulted (07/11/2025 9:43 AM EDT) [facility] Rapid Strep A Screen Negative Negative, None Detected Swab 07/11/2025 9:43 AM EDT us Brandi Gutierrez MD POINT OF CARE TEST ENTER/EDIT ORDERABLES Final Result * POCT Rapid COVID Ag (07/11/2025 9:42 AM EDT) Rapid COVID Ag Negative Swab 07/11/2025 9:42 AM EDT Brandi Gutierrez MD POINT OF CARE TEST ENTER/EDIT ORDERABLES Final Result * US Scrotum (07/04/2025 1:02 PM EDT) Anatomical Region Laterality Modality Body Ultrasound 07/04/2025 1:02 PM EDT Narrative 07/04/2025 1:40 PM EDT [place] [address] Ultrasound Report Signed Patient: Rodri Yeager MR#: [id number] : 1960 Acct:[id number] Age/Sex: 65 / M ADM Date: 07/04/25 Loc: . Attending Dr: Phylicia Payne MD Ordering Physician: Haider Davila MD Date of Service: 07/04/25 Procedure(s): US scrotum Accession Number(s): [id number] cc: Haider Davila MD; Phylicia Payne MD [...] 07/04/25 1337 DD/ 1302 TD/TT: 07/04/25 1313 Director Of Home Care Hospice: Procedure Note Donotuseinterpreter, Image - 07/04/[address] [address] Ultrasound Report Signed Patient: Rodri Yeager LMR#: [id number] : 2Acct:[id number] Age/Sex: 65 / MADM Date: 07/04/25 Loc: HO.US Attending Dr: Phylicia Payne MD Ordering Physician: Haider Davila MD Date of Service: 07/04/25 Procedure(s): US scrotum Accession Number(s): [id number] cc: Haider Davila MD; Phylicia Payne MD [...] signed by Dimitri Butterfield MD in OV> 10/07/25 1337 DD/ 1302 TD/TT: 07/04/25 1313 Director Of Home Care Hospice: us Haider Davila MD IMG US PROCEDURES Final Result * US Retroperitoneal Complete (07/04/2025 12:41 PM EDT) Anatomical Region Laterality Modality Ultrasound 07/04/2025 12:4 1 PM EDT Narrative 07/04/2025 1:36 PM EDT [address] [address] Ultrasound Report Signed Patient: Rodri Yeager MR#: [id number] : 1960 Acct:[id number] Age/Sex: 65 / M ADM Date: 07/04/25 Loc: HO.US Attending Dr: Phylicia Payne MD Ordering Physician: Phylicia Payne MD Date of Service: 07/04/25 Procedure(s): US retroperitoneal comp Accession Number(s): [id number] cc: Phylicia Payne MD Reason for Exam: [...] 07/04/25 1333 DD/ 1241 TD/TT: 07/04/25 1257 Director Of Home Care Hospice: Procedure Note Donotuseinterpreter, Image - 07/04/2025 [place] [address] Ultrasound Report Signed Patient: Rodri Yeager LMR#: [id number] : 2Acct:[id number] Age/Sex: 65 / MADM Date: 07/04/25 Loc: HO.US Attending Dr: Phylicia Payne MD Ordering Physician: Phylicia Payne MD Date of Service: 07/04/25 Procedure(s): US retroperitoneal comp Accession Number(s): [id number] cc: Phylicia Payne MD Reason for Exam: [...] 07/04/25 1333 DD/ 1241 TD/TT: 07/04/25 1257 Director Of Home Care Hospice: Phylicia Payne MD IM US PROCEDURES Final Result * Colonoscopy (05/25/2025 1:30 PM EDT) Anatomical Region Laterality Modality Endoscopy Historical Provider ENDOSCOPY PROCEDURE ORDER JEVON Final Result * Anatomic Pathology Outreach (05/25/2025 11:39 AM EDT) Tissue Historical Provider LAB PATHOLOGY ORDERABLES Final Result * (ABNORMAL) Urinalysis, Complete, with Reflex to Culture (04/28/2025 9:39 AM EDT) Color Urine Yellow [facility] Appearance Urine Clear [facility] PH 6.5 5.0 - 9.0 [facility] Glucose Urine UA Negative Negative mg/dL [facility] Urine Blood Small (1+)(A) Negative [facility] Specific [place] - Urine 1.015 1.005 - 1.025 [facility] Urine Protein Trace Neg-Trace mg/dL [facility] Urine Ketones Negative Negative mg/dL [facility] Nitrite Urine Negative Negative [facility] Leukocyte Esterase Urine Negative Negative [facility] RBC Urine 6-10(A) 0 - 2 /HPF [facility] Urine WBC 0-5 0 - 5 /HPF [facility] Urine Squamous Epithelial Cell 0-2 0 - 2 /HPF [facility] Urine Bacteria None Seen None Seen [facility] Hyaline Casts, Urine 0-2 0 - 2 /LPF [facility] Urine 04/28/2025 9:39 AM EDT 04/28/2025 11:56 AM EDT Narrative [facility] - 04/28/2025 12:56 PM EDT Urine, Clean Catch Phylicia Payne MD LAB URINE ORDERABLES Final Resul t Performing Organization Address [facility] Co de Phone Number [facility] [address] [place] [phone] * (ABNORMAL) Albumin, Random Urine W/Creatinine (04/28/2025 9:39 AM EDT) Creatinine, Urine 129.91 mg/dL [facility] Microalbumin Urine 39.0 mg/L [facility] Microalbum Creatinine Ratio Ur 30.0(H) <30 ug/mg cr [facility] Comment:Albumin/Creatinine R atio Reference Ranges: Normal: < 30 ug/mg creatinine Microalbuminuria: 30 - 300 ug/mg creatinineClinical Albuminuria: > 300 ug/mg creatinine Urine 04/28/2025 9:39 AM EDT 04/28/2025 11:56 AM EDT Phylicia Payne MD LAB URINE ORDERABLES Final Resul t Performing Organization Address [facility] Co de Phone Number [facility] [address] [place] [phone] * (ABNORMAL) Hepatic Function Panel (04/28/2025 9:39 AM EDT) Bilirubin, Total 1.4(H) 0.0 - 1.0 mg/dL [facility] Bilirubin, Direct 0.4 0.0 - 0.5 mg/dL [facility] Aspartate Amino Transferase 28 5 - 37 U/L [facility] Alanine Aminotransferase 40 0 - 40 U/L [facility] Total Protein 7.6 6.5 - 8.0 g/dL [facility] Albumin Level 4.6 3.5 - 5.0 g/dL [facility] Alkaline Phosphatase 68 39 - 117 U/L [facility] 04/28/2025 9:39 AM EDT 04/28/2025 12:11 PM EDT Phylicia Payne MD LAB BLOOD ORDERABLES Final Resul t Performing Organization Address [facility] Co de Phone Number [facility] [address] [place] [phone] * (ABNORMAL) Lipid Panel, Standard (04/28/2025 9:39 AM EDT) Triglycerides 92 <150 mg/dL [facility] Comment:Desirable Triglyceri de: less than 150 mg/dLBorderline High Triglyceride 150-199 mg/dLHigh Triglyceride: 200-499 mg/dLVery High Triglyceride: greater than or equal to 5OO mg/dL Cholesterol 131 <200 mg/dL [facility] Comment:Desirable Cholestero l: less than 200 mg/dLBorderline High Cholesterol: 200-239 mg/dLHigh Cholesterol: greater than 239 mg/dL LDL Cholesterol Calculated 80 <100 mg/dL [facility] Comment:Desirable LDL: less than 100 mg/dLNear Optimal/Above Optimal LDL: 110- 129 mg/dLBorderline High LDL: 130-159 mg/dLHigh LDL: 160-189 mg/dLVery High LDL: greater than or equal to 190 mg/dL HDL Cholesterol 33(L) >40 mg/dL [facility] Comment:Desirable HDL: great er than 40 mg/dL Note: This HDL assay may give artificially low results in patients with liver disease. 04/28/2025 9:39 AM EDT 04/28/2025 12:11 PM EDT Phylicia Payne MD LAB BLOOD ORDERABLES Final Resul t Performing Organization Address [facility]/ZIP Co de Phone Number [facility] [address] [place] [phone] * (ABNORMAL) Basic Metabolic Panel (04/28/2025 9:39 AM EDT) Sodium 142 135 - 145 mmol/L [facility] Potassium 3.7 3.3 - 5.1 mmol/L [facility] Chloride 104 96 - 108 mmol/L [facility] Carbon Dioxide 28 22 - 29 mmol/L [facility] Anion Gap 14 12 - 20 [facility] Urea Nitrogen (BUN) 14 9 - 16 mg/dL [facility] Creatinine, Serum 0.91 0.5 - 1.4 mg/dL [facility] Estimated Glomerular Filt Rate >60 [facility] Comment:Chronic Kidney Disea se: Estimated GFR < 60 mL/min/1.23e2Welort Kidney Disease: Estimated GFR < 15 mL/min/1.73m2 Glucose 117(H) 60 - 115 mg/dL [facility] Calcium 9.3 8.4 - 10.2 mg/dL [facility] 04/28/2025 9:39 AM EDT 04/28/2025 12:11 PM EDT Phylicia Payne MD LAB BLOOD ORDERABLES Final Resul t [facility] [address] [place] [phone] * Hemoglobin A1c (03/29/2025 12:04 PM EDT) Hemoglobin A1c 5.7 <6.0 % [facility] Comment:Hemoglobin A1C Refer ence Range Adults: 4.8 - 6.0 % Non diabetic: < 6.0 % Goal: < 7.0 %Additional Action Suggested: > 8.0 %Note: Hemoglobin A1c results are invalid for patients with abnormal amounts of HbF. Blood transfusions may impact the HbA1c concentration in the patient sample. Estimated Average Glucose 117 mg/dL [facility] Comment:eAG = Estimated ave rage glucose which is %A1C expressed asaverage glucose, using the formula of the [id number] Glucose study (ADAG), Diabetes Care, Vol.31,#8,Apr. 2007 Blood Venous blood specimen / Unknown 03/29/2025 12:04 PM EDT 03/29/2025 1:01 PM EDT Phylicia Payne MD LAB BLOOD ORDERABLES Final Resul t Performing Organization Address City/[facility]/ZIP Co de Phone Number [facility] [address] [place] [phone] * Hepatitis C Antibody with Reflex to HCV, RNA, Quantitative, Real-Time PCR (05/19/2024 10:50 AM EDT) Hepatitis C Antibody Nonreactive Nonreactive [facility] Comment:Antibodies to HCV no t detected; does not exclude early acuteHCV infection. Blood Venous blood specimen / Unknown 05/19/2024 10:50 AM EDT 05/19/2024 11:45 AM EDT Phylicia Payne MD LAB BLOOD ORDERABLES Final Resul t Performing Organization Address [facility]/ZIP Co de Phone Number [facility] [address] [place] [phone] from Last 3 Months or Most Recently Relevant to Health Maintenance Insurance MEDIC[place] [address] [place] [id number] Care Teams Final Assembly And Packing Supervisor Relationship Specialty Start Date End Date Phylicia Payne MD [address] [place] [address] PCP - General Family Medicine 09/28/18 Jt Vazquez, PharmD [address] [place] [address] Pharmacist Internal Medicine 01/26/23
--- OUTSIDE RECORDS SUMMARY | 2025-07-11 11:45 | XMS_ITS | Encounter Summary ---
Author Organization [employer] Address [address] [facility] 7t [place] [address] Care Team Providers Care Reproduction Production Manager Name Role Phone Phylicia Payne MD Primary Care Provider [phone] Jt Vazquez PharmD Unavailable [phone] Encounter Details Date Type Department Care Team (Late st Contact Info) Description 07/05/2025 Results Follow-Up [facility] [address] [place], [place] [phone] Haider Davila MD [address] [place] [address] US Scrotum Social History Tobacco Use Types Packs/Day Years [...] Description 07/17/2025 10:15 AM EDT Office Visit [facility] [address] [place] [address] Phylicia Payne MD [address] [place] [phone] documented as of this encounter Goals Goal [...] documented as of this encounter Care Teams Reproduction Production Manager Relationship Specialty Start Date End Date Phylicia Payne MD [address] [place] [address] [phone] PCP - General Family Medicine 09/28/18 Jt Vazquez, Alyce [address] [place] [phone] Pharmacist Internal Medicine 01/26/23 documented as of this encounter
--- OUTSIDE RECORDS SUMMARY | 2025-07-11 11:45 | XMS_ITS | Encounter Summary ---
Author Organization [employer] Address [address] [facility] 7t [place] [address] Care Team Providers Care Glass Tinter Name Role Phone Phylicia Payne MD Primary Care Provider [phone] Jt Vazquez PharmD Unavailable [phone] Encounter Details Date Type Department Care Team (Late st Contact Info) Description 03/29/2025 Orders Only [facility] [address] [place], [place] [phone] Phylicia Payne MD [address] [place], [place] [phone] Dyslipidemia (Primary Dx); Dietary counseling; Exercise counseling; [...] 03/29/2025 10:48 AM Diane Elmore [place] * Patient Health Questionnaire-9 Score [...] Description 07/17/2025 10:15 AM EDT Office Visit [facility] [address] [place] [address] Phylicia Payne MD [address] [place] [phone] Scheduled Orders Name Type Priority Associated Diagnoses [...] as of this encounter Care Teams Glass Tinter Relationship Specialty Start Date End Date Phylicia Payne MD [address] [place] [id number] PCP - General Family Medicine 09/28/18 Jt Vazquez, PharmD [address] [place] [phone] Pharmacist Internal Medicine 01/26/23 documented as of this encounter
--- OUTSIDE RECORDS SUMMARY | 2025-07-11 11:45 | XMS_ITS | Encounter Summary ---
Author Organization [employer] Address [address] [facility] 7t [place] [address] Care Team Providers Care Gasoline Pump Installer Name Role Phone Phylicia Payne MD Primary Care Provider [phone] Jt Vazquez PharmD Unavailable [phone] Encounter Details Date Type Department Care Team (Late st Contact Info) Description 06/02/2025 Orders Only [facility] [address] [place] [address] ProviderJanina MD Social History Tobacco Use Types [...] Description 07/17/2025 10:15 AM EDT Office Visit [facility] [address] [place], [place] [phone] Phylicia Payne MD [address] [place], [place] [phone] documented as of this encounter Goals Goal [...] documented as of this encounter Care Teams Gasoline Pump Installer Relationship Specialty Start Date End Date Phylicia Payne MD [address] [place] [phone] PCP - General Family Medicine 09/28/18 Jt Vazquez, PharmD [address] [place] [address] Pharmacist Internal Medicine 01/26/23 documented as of this encounter
== END 2025-07-11 10:09 | disposition home or self-care (01) ==
LOC: HO.HHCX 10:08
PROVIDERS: PCP Family Medicine; Visit Provider Internal Medicine
DX: R05.9 Cough, unspecified (principal)
CPT/HCPCS: 71046

== ENCOUNTER → 2025-07-11 10:33 | Outpatient (BNV) | payer MEDICARE, SELFPAY | PROVIDERS: PCP Family Medicine; Visit Provider Radiology Diagnostic Radiology | DX: R05.9 Cough, unspecified (principal); R50.9 Fever, unspecified | CPT/HCPCS: 71046 ==

== ENCOUNTER 2025-07-12 10:31 | Outpatient (AMB) | payer MEDICARE, SELFPAY ==
--- OUTSIDE RECORDS SUMMARY | 2025-07-11 09:20 | XMS_ITS | Encounter Summary ---
Author Organization [employer] Address 75 [facility] 7t [place] [address] Care Team Providers Care Order Filler Name Role Phone Phylicia Payne MD Primary Care Provider [phone] Jt Vazquez PharmD Unavailable [phone] Reason for Visit * Reason Comments Cough Encounter Details Date Type Department Care Team ([facility] Contact Info) Description 07/11/2025 9:20 AM EDT Office Visit [facility]ALK-[facility] [place] [address] [place] [address] Brandi Gutierrez MD [address] [place] [address] Acute exacerbation of asthma with allergic rhinitis [...] 10:51 AM EDT documented in this encounter Progress Notes * Brandi Gutierrez MD - 07/11/2025 9:20 AM EDT SUBJECTIVE Rodri Love is a 65 y.o. male patient of Phylicia Payne MD who presents for cough and sore throat. JAMES Mace is here because he has been having a productive cough and sore throat for a week. Cough is severe, has led to his chest wall hurting with each coughing spell. He has had some mild frontal headache and sore throat as well, and he has become hoarse. He had a fever of 103 F 3 days ago but no chills. He reports having asthma and has been using albuterol without relief. 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 Review of Systems Constitutional: Positive for fever. Negative for chills. HENT: Positive for sore throat, tinnitus (chronic) and voice change. Negative for ear pain, hearingloss, postnasal drip and rhinorrhea. Respiratory: Positive for cough and wheezing. Negative for shortness of breath. Cardiovascular: Positive for chest pain (with cough) and palpitations (occasional). Negative for leg swelling. Neurological: Positive for headaches. OBJECTIVE BP (!) 158/86 (BP Location: Left arm, Patient Position: Sitting, BP Cuff Size: Adult) Pulse 90 Temp 98.3 ??F (36.8 ??C) (Temporal) Resp 18 Wt 261 lb (118 kg) SpO2 97% BMI 42.13 kg/m?? Physical Exam Constitutional: General: He is not in acute distress. Comments: Coughing frequently HENT: Head: Normocephalic and atraumatic. Right Ear: Tympanic membrane, ear canal and external ear normal. Left Ear: Hearing and external ear normal. Tympanic membrane is scarred. Nose: Nose normal. Mouth/Throat: Mouth: Mucous membranes are moist. Pharynx: No oropharyngeal exudate or posterior oropharyngeal erythema. Eyes: General: No scleral icterus. Right eye: No discharge. Left eye: No discharge. Extraocular Movements: Extraocular movements intact. Pupils: Pupils are equal, round, and reactive to light. Comments: Conjunctival injection bilaterally Cardiovascular: Rate and Rhythm: Normal rate and regular rhythm. Pulses: Normal pulses. Heart sounds: Normal heart sounds. No murmur heard. No friction rub. No gallop. Pulmonary: Effort: Pulmonary effort is normal. Respiratory distress: expiratory wheezes superiorly and middle lung velasquez bilaterally. Breath sounds: No stridor. Wheezing present. No rales. Comments: Prolonged expiratory phase Musculoskeletal: Right lower leg: No edema (slight). Left lower leg: No edema. Skin: General: Skin is warm and dry. Capillary Refill: Capillary refill takes less than 2 seconds. Neurological: General: No focal deficit present. Mental Status: He is alert. Psychiatric: Mood and Affect: Mood normal. Behavior: Behavior normal. Chest x-ray: FINDINGS: PA and lateral views of the chest are submitted. There is minimal subsegmental atelectasis versus scarring at the left lung base. The lungs are otherwise clear. There is no pleural effusion, pneumothorax, or pulmonary vascular congestion. The heart is normal in size. There is degenerative disc disease of the spine. XR/XR chest 2V IMPRESSION: No acute cardiopulmonary abnormality. Assessment/Plan Assessment/Plan Diagnoses and all orders for this visit: Acute exacerbation of asthma with allergic rhinitis: chest x-ray without infiltrate or edema. Flu and COVID are negative today. Symptoms consistent with viral infection, however, which likely set offasthma exacerbation. Consider TTE to evaluate cardiac function if not improved with steroids. Will treat for asthma exacerbation with oral prednisone for 5 days along with albuterol and have short-term follow up with PCP on 07/17/25. - predniSONE (Deltasone) 20 MG tablet; Take 2 tablets (40 mg) by mouth Once per day for 5 days. Cough in adult - Influenza A (ID NOW Rapid Molecular) - Influenza B (ID NOW Rapid Molecular) - POCT rapid strep A manually resulted - POCT Rapid COVID Ag - XR Chest 2 Views; Future Future Appointments Date Time Provider Department Center 07/17/2025 10:15 AM Phylicia Payne MD MEDICINE [facility] documented in this encounter Plan of Treatment Upcoming Encounters Date Type Department Care Team (Late st Contact Info) Description 07/17/2025 10:15 AM EDT Office Visit [facility] MEDICINE [address] [place] [phone] Phylicia Payne MD [address] [place] [address] documented as of this encounter Goals Goal Patient Goal Type Associated Problems Recent Progress Patient-Stated? Author Blood Pressure < 150/90 Blood Pressure 158/86(2024 9:39 AM EDT) Jt Garcia, ShaiD Note: Per JNC-8 62 year old patient [...] AM EDT Narrative 07/11/2025 11:11 [place] [address] XRay Report Signed Patient: Rodri Yeager MR#: [id number] : 1960 Acct:[id number] Age/Sex: 65 / M ADM Date: 07/11/25 Loc: HO.HHCX Attending Dr: Brandi Gutierrez MD Ordering Physician: Brandi Gutierrez MD Date of Service: 07/11/25 Procedure(s): XR chest 2V Accession Number(s): [id number] cc: Brandi Gutierrez MD; Phylicia Payne MD [...] signed by Dimitri Butterfield MD in OV> 07/11/251107 DD/ 55 TD/TT: 07/11/251101 Lining Ironer: Procedure Note Donotuseinterpreter, Image - 07/11/[address] [address] XRay Report Signed Patient: Rodri Yeager LMR#: [id number] : 2Acct:[id number] Age/Sex: 65 / MADM Date: 07/11/25 Loc: HO.HHCX Attending Dr: Brandi Gutierrez MD Ordering Physician: Brandi Gutierrez MD Date of Service: 07/11/25 Procedure(s): XR chest 2V Accession Number(s): [id number] cc: Brandi Gutierrez MD; Phylicia Payne MD [...] signed by Dimitri Butterfield MD in OV> 07/11/251107 DD/ 55 TD/TT: 07/11/251101 Lining Ironer: Brandi Gutierrez MD IMG XR PROCEDURES Final Resul t * Influenza B (ID NOW Rapid Molecular) (07/11/2025 9:46 AM EDT) [facility] Influenza B Negative Negative, Indeterminate [facility] Swab 07/11/2025 9:46 AM EDT Brandi Gutierrez MD POINT OF CARE TEST ENTER/EDIT ORDERABLES Final Result Performing Organization Address City/[facility]/ZIP Co de Phone Number [facility] [address] [place] [phone] * Influenza A (ID NOW Rapid Molecular) (07/11/2025 9:46 AM EDT) [facility] Influenza A Negative Negative, Indeterminate [facility] Swab 07/11/2025 9:46 AM EDT Result [facility] Brandi Gutierrez MD POINT OF CARE TEST ENTER/EDIT ORDERABLES Final Result Performing Organization Address City/[facility] Co de Phone Number [facility] [address] [place] [phone] * POCT rapid strep A manually resulted (07/11/2025 9:43 AM EDT) [facility] Rapid Strep A Screen Negative Negative, None Detected Swab 07/11/2025 9:43 AM EDT Result [facility] Brandi Gutierrez MD POINT OF CARE TEST ENTER/EDIT ORDERABLES Final Result * POCT Rapid COVID Ag (07/11/2025 9:42 AM EDT) [facility] Rapid COVID Ag Negative Swab 07/11/2025 9:42 AM EDT Result [facility] Brandi Gutierrez MD POINT OF CARE TEST ENTER/EDIT ORDERABLES Final Result documented in this encounter Visit Diagnoses Diagnosis Acute exacerbation of asthma with allergic rhinitis- Primary Cough in adult documented in this encounter Additional Health Concerns Assessment Noted Time PHQ-9 Depression Total Score: 0 03/29/20 25 10:48 AM EDT documented as of this encounter Care Teams Order Filler Relationship Specialty Start Date End Date Phylicia Payne MD [address] [place] [address] PCP - General Family Medicine 09/28/18 Jt Vazquez, Alyce [address] [place] [address] Pharmacist Internal Medicine 01/26/23 documented as of this encounter
--- NOTE | 2025-07-12 10:30 | A.OFFVIS_ITS ---
Intake Visit Reasons: microscopic hematuria Intake Note: patient presents today for: new patient microscopic hematuria urology medications: none blood thinners: aspirin smoker: no Railroad Watchman Required: Yes Railroad Watchman Name: [id number] Accompanied by: Self / Same As Patient Allergies No Known Allergies Allergy (Verified 07/12/25 13:30) Medication List - Last Reconciled 07/12/25 by JENIFER Faria- albuterol sulfate 2.5 mg inhalation Q4-6H PRN amlodipine 5 mg PO DAILY aspirin (Adult Aspirin Regimen) 81 mg PO DAILY atorvastatin 10 mg PO BEDTIME fluticasone propionate 50 mcg/actuation (Flonase Allergy Relief) 1 spray intranasal BID losartan 100 mg PO DAILY HPI Comments Details: Rodri is a 65-year-old Afghan-speaking male patient of Dr. Payne. He has a past medical history of allergic rhinitis, obstructive sleep apnea, restrictive lung disease, and obesity. He presents to the office as a new patient for nephrolithiasis as well as scrotal enlargement. He reports having recently followed up with?his PCP at which time recommendations were made for urology referral for further assessment evaluation. In review of patient's chart it appears a retroperitoneal ultrasound and scrotal ultrasound were ordered and performed. These results were reviewed and communicated with the patient today. 07/22 retroperitoneal ultrasound notes 11 x 7 x 9 mm nonobstructing calculus in the mid to lower pole calyx of the right kidney. Bilateral renal cysts with complex appearing hypoechoic lesion which may represent a cyst however CT is recommended per radiology report. The urinary bladder is unremarkable. Prostate volume 21 mL. Scrotal ultrasound 07/22 9 mm right testicular cyst with internal debris, bilateral epididymal head cysts left greater than right, and fluid collection in the right hemiscrotum containing internal debris could represent complex hydrocele or cysts. When asked he denies any previous history of nephrolithiasis and or surgical intervention for nephrolithiasis.. He denies any scrotal discomfort. He reports noting swelling has been present for many years however feels it has increased with time. Assessment was offered however deferred. He reports his main concern is his right-sided flank pain. He reports feeling this has worsened as he has a viral cold and pain is increased with coughing. No CVA tenderness noted on exam today. We did discussed at length nephrolithiasis, flank pain, and scrotal swelling. We discussed worsening symptoms. When asked he denies urinary urgency, urinary frequency, i ncontinence, nocturia, hematuria, dysuria, foul smelling urine, changes to urinary stream, fever, and or chills. He is happy with his current voiding parameters. Unable to obtain urinalysis for review today as patient unable to void. All questions were answered. He otherwise offers no other issues or concerns at this time. PSA 05/21 0.9 PFSH Medical History (Updated 07/12/25 @ 11:10 [facility] Allergic rhinitis RO (obstructive sleep apnea) Restrictive lung disease PRAJAPATI (dyspnea on exertion) Morbid obesity Surgical History (Updated 11/08/24 @ 10:46 by Dane Bernal MD) Lipoma of back (11/01/24) Social History Patient Tobacco Use Status: Former Tobacco user Review of Systems Const All systems reviewed & are unremarkable except as noted in HPI and below Physical Exam Const General: cooperative, comfortable, no acute distress, well developed, alert and awake Nutritional Appearance: overweight Orientation/consciousness: patient oriented x3 Limitations: language barrier HEENT Head: Yes normal to inspection, Yes normocephalic and Yes atraumatic Ears: hearing grossly normal bilaterally Eyes General: appearance normal, both eyes and all related structures Neck Neck: Yes normal visual inspection and Yes trachea midline Chest Chest palpation & inspection: normal inspection of the chest Resp Effort & Inspection: normal respiratory effort and able to speak in complete sentences Cardio Rate: regular rate GI Inspection: Yes normal to inspection General: Yes no CVA tenderness Back/Spine/Pelvis Back: no CVA tenderness Skin General skin exam: no rashes or lesions noted Neuro General: patient oriented x3 Extrem General: Yes normal to inspection Psych Appearance: grossly normal and well kempt Mental Status: mental status grossly normal Speech and movement: Normal speech and movement present and Clear speech present Affect: normal affect Attitude: cooperative Thought process: Normal thought process present Thought content: Normal thought content present Insight: Fair insight present (Psych) Judgement: Fair judgement present (Psych) Results Reviewed Results Reviewed: Date of Service: 07/04/25 Procedure(s): US retroperitoneal comp FINDINGS: Right kidney: The right kidney measures 11.8 x 5.4 x 6.2 cm. Renal parenchymal echotexture and thickness are normal. There is a 12 x 8 x 4 mm cyst at the lower pole and a 12 x 9 x 12 mm cyst in the mid to lower pole region. At the upper pole, there is a 2.2 x 2.1 x 1.9 cm hypoechoic lesion containing wall calcification and low level internal echoes which may represent a complex cyst. There is an 11 x 7 x 9 mm mid to lower pole calculus. There is no hydronephrosis. Left Kidney: The left kidney measures 11.2 x 5.1 x 5.1 cm. Renal parenchymal echotexture and thickness are normal. There is an upper pole cyst measuring 10 x 8 x 8 mm and the 3.9 x 3.1 x 2.9 cm cyst in the interpolar region. There is no hydronephrosis or renal calculi. The urinary bladder is unremarkable. Bilateral ureteral jets are identified. Before voiding, the urinary bladder measured 5.5 x 4.0 x 5.3 cm, for an estimated volume of 59.8 mL. After voiding, the urinary bladder measured 3.7 x 1.8 x 2.8 cm, for an estimated volume of 10 mL. The prostate measures 3.2 x 4.1 x 3.2 cm, for an estimated volume of 21.1 mL. IMPRESSION: 1. 11 x 7 x 9 mm nonobstructing calculus in a mid to lower pole calyx of the right kidney. 2. Bilateral renal cysts as described. There is a 2.2 x 2.1 x 1.9 cm complex appearing hypoechoic lesion containing wall calcification and low level internal echoes. While this may represent a cyst, renal protocol CT is recommended to exclude a solid mass. 3. Post void bladder residual of 10 mL. Please note that the bladder volume before voiding was only 59.8 mL. 4. Prostate volume of 21.1 mL. - Date of Service: 07/04/25 Procedure(s): US scrotum FINDINGS: Real-time grayscale ultrasound imaging of the scrotum was performed. RIGHT TESTICLE: The right testis measures 4.8 x 1.8 x 2.5 cm and demonstrates dilatation of the rete testes, but otherwise normal homogeneous echotexture. There is a 9 x 7 x 8 mm cyst in the midportion of the testis containing a small amount of internal debris. The right testis demonstrates normal color Doppler flow. RIGHT EPIDIDYMIS: Normal in size, shape, and vascularity. There is a 3 mm epididymal head cyst. LEFT TESTICLE: The left testis measures 4.4 x 2.5 x 8.2 cm and demonstrates dilatation of the rete testes, but otherwise normal homogeneous echotexture. No masses are seen. The left testis demonstrates normal color Doppler flow. LEFT EPIDIDYMIS: There are multiple cysts in the region of the epididymal head measuring up to 2.6 x 2.0 x 2.7 cm. VARICOCELE: None. HYDROCELE: There is a fluid collection containing internal particulate debris in the right hemiscrotum measuring 6.1 x 5.7 x 5.6 cm. It is uncertain whether this represents a complex hydrocele or a cyst, perhaps of the epididymis. OTHER COMMENTS: None. IMPRESSION: 1. 9 x 7 x 8 mm right testicular cyst containing a small amount of internal debris. 2. Bilateral epididymal head cysts, left greater than right. 3. 6.1 x 5.7 x 5.6 cm fluid collection in the right hemiscrotum containing internal debris. It is uncertain whether this represents a complex hydrocele or a cyst, perhaps of the epididymis. Assessment & Plan Assessment & Plan (1) Nephrolithiasis: Code(s): N20.0 - Calculus of kidney Category: Medical (2) Complex renal cyst: Code(s): N28.1 - Cyst of kidney, acquired Category: Medical (3) Hydrocele: Code(s): N43.3 - Hydrocele, unspecified Category: Medical (4) Epididymal cyst: Code(s): N50.3 - Cyst of epididymis Category: Medical (5) Flank pain: Code(s): R10.A0 - Flank pain, unspecified side Category: Medical Plan Unable to obtain urine for urinalysis as patient unable to void. Most recent retroperitoneal ultrasound and scrotal imaging results reviewed with the patient today; as noted above. We discussed at length nephrolithiasis as well as hydrocele/ complex cysts Will obtain CT urogram for further assessment evaluation BUN and creatinine ordered for imaging We did discussed further treatment options of complex hydrocele/cyst He denies any bothersome urinary issues. He reports be happy with current voiding parameters. We discussed importance of adequate hydration relation to nephrolithiasis as well as overall health and well-being. Follow-up in 1-3 months with imaging; or sooner with any issues, concerns, and or questions. Orders: Orders Blood Urea Nitrogen Today R39.15 - Urgency of urination Creatinine Today R39.15 - Urgency of urination CT urogram Today N20.0 - Calculus of kidney, N28.1 - Cyst of kidney, acquired, R10.A0 - Flank pain, unspecified side, R31.0 - Gross hematuria Patient Instructions: The patient had an opportunity to ask questions regarding the treatment plan. All questions were answered. Physical exam, labs, and imaging were discussed and reviewed in detail. As well as risks, benefits, and discussion of treatment choices. No major barriers to understanding were identified. The patient expressed understanding and agreement with the above treatment plan. The patient was made aware they should contact our office by phone for worsening of their current condition, the appearance of new symptoms, or with any question s or concerns. Compliance is encouraged with any medications and follow up testing that is ordered. It is a privilege to be allowed the opportunity to participate in? your urological care.? Again, if you have any questions or concerns If you have any questions or concerns please do not hesitate to contact me. The office is [phone]. This note is constructed using voice recognition software. While every effort has been made to ensure accuracy hog man errors may have been included. Yours sincerely, MICHELLE Faria Coding Level of Care Code New Pt Level 3 (86885) Diagnoses Nephrolithiasis N20.0 Complex renal cyst N28.1 Hydrocele N43.3 Epididymal cyst N50.3 Flank pain R10.A0
--- OUTSIDE RECORDS SUMMARY | 2025-07-12 12:29 | XMS_ITS | Encounter Summary ---
Author Organization [employer] Address [address] [facility] 7[address] [place] [address] Care Team Providers Care Utility Inspector Name Role Phone Phylicia Payne MD Primary Care Provider [phone] Jt Vazquez PharmD Unavailable [phone] Reason for Visit * Reason Onset Date Comments Paperwork/Forms 07/11/2025 Encounter Details Date Type Department Care Team (Late st Contact Info) Description 07/11/2025 Telephone [facility] [address] [place], [place] [phone] Phylicia Payne MD [address] [place] [address] Paperwork/Forms Social History Tobacco Use Types Packs/Day Years [...] encounter Miscellaneous Notes * Telephone Encounter - Jennyfer Koch RN - 07/11/2025 1:25 PM EDT Faxed completed nebulizer physician order to [facility] pharmacy, confirmation received. documented in this encounter Plan of Treatment Upcoming Encounters Date Type Department Care Team (Late st Contact Info) Description 07/17/2025 10:15 AM EDT Office Visit [facility] [address] [place] [phone] Phylicia Payne MD [address] [place], [place] [phone] documented as of this encounter Goals Goal Patient Goal Type Associated Problems Recent Progress Patient-Stated? Author Blood Pressure < 150/90 Blood Pressure 158/86(2024 9:39 AM EDT) No Jt Vazquez PharmD Note: Per JNC-8 62 year old patient without DM or CKD documented as of this encounter Visit Diagnoses Not on filedocumented in this encounter Additional Health Concerns Assessment Noted Time PHQ-9 Depression Total Score: 0 03/29/20 10:48 AM EDT documented as of this encounter Care Teams Utility Inspector Relationship Specialty Start Date End Date Phylicia Payne MD [address] [place] [address] PCP - General Family Medicine 09/28/18 Jt Vazquez, PharmD [address] [place] [phone] Pharmacist Internal Medicine 01/26/23 documented as of this encounter
--- OUTSIDE RECORDS SUMMARY | 2025-07-12 12:29 | XMS_ITS | Clinical Summary ---
Author Organization [employer] Address [address] [facility] 7[address] [place] [address] Care Team Providers Care Rn Provider Relations Name Role Phone Phylicia Payne MD Primary Care Provider [phone] Jt Vazquez PharmD Unavailable [phone] Allergies Active Allergy Reactions Criticality Noted Date [...] -ACS work-up negative in Aug 2017 at [facility]. -Normal stress test in Oct 2017 -Currently [...] -ACS work-up negative in Aug 2017 at [facility]. -Normal stress test in Oct 2017 -Currently [...] -ACS work-up negative in Aug 2017 at [facility]. -Normal stress test in Oct 2017 -Currently [...] -ACS work-up negative in Aug 2017 at [facility]. -Normal stress test in Oct 2017 -Currently [...] -ACS work-up negative in Aug 2017 at [facility]. -Normal stress test in Oct 2017 -Currently [...] -ACS work-up negative in Aug 2017 at [facility]. 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 -sleep study and CPAP titration study done in May 2018, pressure 13 cm recommended -seen by ldr nurse and was prescribed CPAP again, autoPAP 6-20 cm H2O, last seen in Apr 2023 -continue treatment plan per ldr nurse Assessment & Plan (02/09/2024 10:15 AM EDT): -sleep study done in Apr 2017, which showed RO and recommended CPAP titration study. -sleep study and CPAP titration study done in May 2018, pressure 13 cm recommended -seen by ldr nurse and was prescribed CPAP again, autoPAP 6-20 cm H2O, last seen in Apr 2023 -continue treatment plan per ldr nurse Assessment & Plan (11/14/2023 7:03 AM EST): -sleep study done in Apr 2017, which showed RO and recommended CPAP titration study. -sleep study and CPAP titration study done in May 2018, pressure 13 cm recommended -seen by ldr nurse and was prescribed CPAP again, autoPAP 6-20 cm H2O, last seen in Apr 2023 -continue treatment plan per ldr nurse Assessment & Plan (07/09/2023 9:03 AM EDT): -sleep study done in Apr 2017, which showed RO and recommended CPAP titration study. -sleep study and CPAP titration study done in May 2018, pressure 13 cm recommended -seen by ldr nurse and was prescribed CPAP again, autoPAP 6-20 cm H2O, last seen in Apr 2023 -continue treatment plan per ldr nurse Assessment & Plan (11/08/2022 7:04 AM EST): [...] Description 07/11/2025 9:20 AM EDT Office Visit [facility] [address] [place] [address] Brandi Gutierrez MD Acute exacerbation of asthma with allergic rhinitis (Primary Dx); Cough in adult 07/11/2025 Telephone [facility] [address] [place] [address] Phylicia Payne MD Paperwork/Forms 07/11/2025 Travel 07/10/[address] [address] Phylicia Payne MD Moderate persistent asthma without complication 07/10/2025 Refill [facility] [address] [place] [address] Phylicia Payne MD Moderate persistent asthma without complication 07/07/[address] [address] Phylicia Payne MD 07/05/2025 Results Follow-Up [facility] [address] [place] [address] Haider Davila MD Scrotum 07/05/2025 Orders Only [facility] [address] [place] [address] Phylicia Payne MD Renal cyst (Primary Dx) 07/05/2025 Results Follow-Up [facility] [address] [place] [address] Phylicia Payne MD US Retroperitoneal Complete 06/19/2025 Orders Only [facility] [address] [place] [address] Janina Simmons MD 06/02/2025 Orders Only [facility] [address] [place] [address] Janina Simmons MD 05/24/2025 Refill [facility] [address] [place] [address] Phylicia Payne MD Essential hypertension 04/28/2025 9:20 AM EDT Office Visit [facility] [address] [place] [address] Haider Davila MD Dermatophytosis of groin (Primary Dx); External hemorrhoids; Enlargement of scrotal sac 04/28/2025 Orders Only [facility] [address] [place] [address] Phylicia Payne MD Hematuria, unspecified type (Primary Dx) 04/28/2025 [place] [address] Phylicia Payne MD Hepatic Function Panel, Basic Metabolic Panel, Lipid Panel, Standard 04/28/2025 Orders Only [facility] [address] [place] [address] Phylicia Payne MD 04/28/2025 Travel 04/19/2025 Travel [...] Upcoming Encounters Date Type Department Care Team ([facility] st Contact Info) Description 07/17/2025 10:15 AM EDT Office Visit [facility] [address] [place] [address] Phylicia Payne MD [address] [place] [address] Health Maintenance Due Date Last Done Comments [...] AM EDT Narrative 07/11/2025 11:11 AM EDT [address] [address] XRay Report Signed Patient: Rodri Yeager MR#: [id number] : 1960 Acct:[id number] Age/Sex: 65 / M ADM Date: 07/11/25 Loc: [facility] Attending Dr: Brandi Gutierrez MD Ordering Physician: Branid Gutierrez MD Date of Service: 07/11/25 Procedure(s): XR chest 2V Accession Number(s): [id number] cc: Brandi Gutierrez MD; Phylicia Payne MD [...] Dimitri Butterfield MD 07/11/2025 11:08 AM EDT Dictated By: Dimitri Butterfield MD Signed By: <Electronically signed by Dimitri Butterfield MD in OV> 07/11/25 1108 DD/ 1056 TD/TT: 07/11/25 1102 Clinical Documentation Spec: Procedure Note Donotuseinterpreter, Image - 07/11/2025 [place] [address] XRay Report Signed Patient: Rodri Yeager LMR#: [id number] : 1960cct:[id number] Age/Sex: 65 / MADM Date: 07/11/25 Loc: [facility] Attending Dr: Brandi Gutierrez MD Ordering Physician: Brandi Gutierrez MD Date of Service: 07/11/25 Procedure(s): XR chest 2V Accession Number(s): [id number] cc: Brandi Gutierrez MD; Phylicia Payne MD [...] 07/11/25 1108 DD/ 1056 TD/TT: 07/11/25 1102 Clinical Documentation Spec: Brandi Gutierrez MD IMG XR PROCEDURES Final Resul t * Influenza B (ID NOW Rapid Molecular) (07/11/2025 9:46 AM EDT) Influenza B Negative Negative, Indeterminate [facility] Swab 07/11/2025 9:46 AM EDT Brandi Gutierrez MD POINT OF CARE TEST ENTER/EDIT ORDERABLES Final Result Performing Organization Address [facility] Co de Phone Number [facility] [address] [place] [phone] * Influenza A (ID NOW Rapid Molecular) (07/11/2025 9:46 AM EDT) Influenza A Negative Negative, Indeterminate [facility] Swab 07/11/2025 9:46 AM EDT Brandi Gutierrez MD POINT OF CARE TEST ENTER/EDIT ORDERABLES Final Result Performing Organization Address [facility] Co de Phone Number [facility] [address] [place] [phone] * POCT rapid strep A manually resulted (07/11/2025 9:43 AM EDT) Rapid Strep A Screen Negative Negative, None Detected Swab 07/11/2025 9:43 AM EDT us Brandi Gutierrez MD POINT OF CARE TEST ENTER/EDIT ORDERABLES Final Result * POCT Rapid COVID Ag (07/11/2025 9:42 AM EDT) Rapid COVID Ag Negative Swab 07/11/2025 9:42 AM EDT us Brandi Gutierrez MD POINT OF CARE TEST ENTER/EDIT ORDERABLES Final Result * US Scrotum (07/04/2025 1:02 PM EDT) Anatomical Region Laterality Modality Body Ultrasound 07/04/2025 1:02 PM EDT Narrative 07/04/2025 1:40 PM EDT [place] [address] Ultrasound Report Signed Patient: Rodri Yeager MR#: [id number] : 1960 Acct:[id number] Age/Sex: 65 / M ADM Date: 07/04/25 Loc: . Attending Dr: Phylicia Payne MD Ordering Physician: Haider Davila MD Date of Service: 07/04/25 Procedure(s): US scrotum Accession Number(s): [id number] cc: Haider Davila MD; Phylicia Payne MD [...] 07/04/25 1337 DD/ 1302 TD/TT: 07/04/25 1313 Clinical Documentation Spec: Procedure Note Donotuseinterpreter, Image - 07/04/[address] [address] Ultrasound Report Signed Patient: Rodri Yeager LMR#: [id number] : 2Acct:[id number] Age/Sex: 65 / MADM Date: 07/04/25 Loc: HO.US Attending Dr: Phylicia Payne MD Ordering Physician: Haider Davila MD Date of Service: 07/04/25 Procedure(s): US scrotum Accession Number(s): [id number] cc: Haider Davila MD; Phylicia Payne MD [...] 07/04/25 1337 DD/ 1302 TD/TT: 07/04/25 1313 Clinical Documentation Spec: us Haider Davila MD IMG US PROCEDURES Final Result * US Retroperitoneal Complete (07/04/2025 12:41 PM EDT) Anatomical Region Laterality Modality Ultrasound 07/04/2025 12:4 1 PM EDT Narrative 07/04/2025 1:36 PM EDT [address] [address] Ultrasound Report Signed Patient: Rodri Yeager MR#: [id number] : 1960 Acct:[id number] Age/Sex: 65 / M ADM Date: 07/04/25 Loc: HO.US Attending Dr: Phylicia Payne MD Ordering Physician: Phylicia Payne MD Date of Service: 07/04/25 Procedure(s): US retroperitoneal comp Accession Number(s): [id number] cc: Phylicia Payne MD Reason for Exam: [...] 07/04/25 1333 DD/ 1241 TD/TT: 07/04/25 1257 Clinical Documentation Spec: Procedure Note Donotuseinterpreter, Image - 07/04/[address] [address] Ultrasound Report Signed Patient: Rodri Yeager LMR#: [id number] : 2Acct:[id number] Age/Sex: 65 / MADM Date: 07/04/25 Loc: HO.US Attending Dr: Phylicia Payne MD Ordering Physician: Phylicia Payne MD Date of Service: 07/04/25 Procedure(s): US retroperitoneal comp Accession Number(s): [id number] cc: Phylicia Payne MD Reason for Exam: [...] 07/04/25 1333 DD/ 1241 TD/TT: 07/04/25 1257 Clinical Documentation Spec: Phylicia Payne MD IMG US PROCEDURES Final Result * Colonoscopy (05/25/2025 1:30 PM EDT) Anatomical Region Laterality Modality Endoscopy Historical Provider ENDOSCOPY PROCEDURE ORDER JEVON Final Result * Anatomic Pathology Outreach (05/25/2025 11:39 AM EDT) Tissue Historical Provider LAB PATHOLOGY ORDERABLES Final Result * (ABNORMAL) Urinalysis, Complete, with Reflex to Culture (04/28/2025 9:39 AM EDT) Color Urine Yellow [facility] Appearance Urine Clear [facility] PH 6.5 5.0 - 9.0 [facility] Glucose Urine UA Negative Negative mg/dL [facility] Urine Blood Small (1+)(A) Negative [facility] Specific Damar - Urine 1.015 1.005 - 1.025 [facility] Urine Protein Trace Neg-Trace mg/dL [facility] Urine Ketones Negative Negative mg/dL [facility] Nitrite Urine Negative Negative [facility] Leukocyte Esterase Urine Negative Negative [facility] RBC Urine 6-10(A) 0 - 2 /HPF [facility] Urine WBC 0-5 0 - 5 /HPF [facility] Urine Squamous Epithelial Cell 0-2 0 - 2 /HPF [facility] Urine Bacteria None Seen None Seen [facility] Hyaline Casts, Urine 0-2 0 - 2 /LPF [facility] Urine 04/28/2025 9:39 AM EDT 04/28/2025 11:56 AM EDT Narrative [facility] - 04/28/2025 12:56 PM EDT Urine, Clean Catch Phylicia Payne MD LAB URINE ORDERABLES Final Resul t Performing Organization Address [facility] de Phone Number [facility] [address] [place] [phone] * (ABNORMAL) Albumin, Random Urine W/Creatinine (04/28/2025 9:39 AM EDT) Creatinine, Urine 129.91 mg/dL [facility] Microalbumin Urine 39.0 mg/L [facility] Microalbum Creatinine Ratio Ur 30.0(H) <30 ug/mg cr [facility] Comment:Albumin/Creatinine R atio Reference Ranges: Normal: < 30 ug/mg creatinine Microalbuminuria: 30 - 300 ug/mg creatinineClinical Albuminuria: > 300 ug/mg creatinine Urine 04/28/2025 9:39 AM EDT 04/28/2025 11:56 AM EDT Phylicia Payne MD LAB URINE ORDERABLES Final Resul t Performing Organization Address [facility] Phone Number [facility] [address] [place] [phone] * (ABNORMAL) Hepatic Function Panel (04/28/2025 9:39 AM EDT) Bilirubin, Total 1.4(H) 0.0 - 1.0 mg/dL [facility] Bilirubin, Direct 0.4 0.0 - 0.5 mg/dL [facility] Aspartate Amino Transferase 28 5 - 37 U/L [facility] Alanine Aminotransferase 40 0 - 40 U/L [facility] Total Protein 7.6 6.5 - 8.0 g/dL [facility] Albumin Level 4.6 3.5 - 5.0 g/dL [facility] Alkaline Phosphatase 68 39 - 117 U/L [facility] 04/28/2025 9:39 AM EDT 04/28/2025 12:11 PM EDT Phylicia Payne MD LAB BLOOD ORDERABLES Final Resul t Performing Organization Address [facility] Co de Phone Number [facility] [address] [place] [address] [phone] * (ABNORMAL) Lipid Panel, Standard (04/28/2025 9:39 AM EDT) Triglycerides 92 <150 mg/dL [facility] Comment:Desirable Triglyceri de: less than 150 mg/dLBorderline High Triglyceride 150-199 mg/dLHigh Triglyceride: 200-499 mg/dLVery High Triglyceride: greater than or equal to 5OO mg/dL Cholesterol 131 <200 mg/dL [facility] Comment:Desirable Cholestero l: less than 200 mg/dLBorderline High Cholesterol: 200-239 mg/dLHigh Cholesterol: greater than 239 mg/dL LDL Cholesterol Calculated 80 <100 mg/dL [facility] Comment:Desirable LDL: less than 100 mg/dLNear Optimal/Above Optimal LDL: 110- 129 mg/dLBorderline High LDL: 130-159 mg/dLHigh LDL: 160-189 mg/dLVery High LDL: greater than or equal to 190 mg/dL HDL Cholesterol 33(L) >40 mg/dL [facility] Comment:Desirable HDL: great er than 40 mg/dL Note: This HDL assay may give artificially low results in patients with liver disease. 04/28/2025 9:39 AM EDT 04/28/2025 12:11 PM EDT us Phylicia Payne MD LAB BLOOD ORDERABLES Final Resul t Performing Organization Address City/[facility] Co de Phone Number [facility] [address] [place] [address] [phone] * (ABNORMAL) Basic Metabolic Panel (04/28/2025 9:39 AM EDT) Sodium 142 135 - 145 mmol/L [facility] Potassium 3.7 3.3 - 5.1 mmol/L [facility] Chloride 104 96 - 108 mmol/L [facility] Carbon Dioxide 28 22 - 29 mmol/L [facility] Anion Gap 14 12 - 20 [facility] Urea Nitrogen (BUN) 14 9 - 16 mg/dL [facility] Creatinine, Serum 0.91 0.5 - 1.4 mg/dL [facility] Estimated Glomerular Filt Rate >60 [facility] Comment:Chronic Kidney Disea se: Estimated GFR < 60 mL/min/1.47r2Uyyrlv Kidney Disease: Estimated GFR < 15 mL/min/1.73m2 Glucose 117(H) 60 - 115 mg/dL [facility] Calcium 9.3 8.4 - 10.2 mg/dL [facility] 04/28/2025 9:39 AM EDT 04/28/2025 12:11 PM EDT us Phylicia Payne MD LAB BLOOD ORDERABLES Final Resul t [facility] [address] [place] [phone] * Hemoglobin A1c (03/29/2025 12:04 PM EDT) Hemoglobin A1c 5.7 <6.0 % [facility] Comment:Hemoglobin A1C Refer ence Range Adults: 4.8 - 6.0 % Non diabetic: < 6.0 % Goal: < 7.0 %Additional Action Suggested: > 8.0 %Note: Hemoglobin A1c results are invalid for patients with abnormal amounts of HbF. Blood transfusions may impact the HbA1c concentration in the patient sample. Estimated Average Glucose 117 mg/dL [facility] Comment:eAG = Estimated ave rage glucose which is %A1C expressed asaverage glucose, using the formula of the Z3B-JhjvsplKirpzul Glucose study (ADAG), Diabetes Care, Vol.31,#8,2007 Blood Venous blood specimen / Unknown 03/29/2025 12:04 PM EDT 03/29/2025 1:01 PM EDT us Phylicia Payne MD LAB BLOOD ORDERABLES Final Resul t Performing Organization Address City/[facility]/ZIP Co de Phone Number [facility] [address] [place] [address] [phone] * Hepatitis C Antibody with Reflex to HCV, RNA, Quantitative, Real-Time PCR (05/19/2024 10:50 AM EDT) Hepatitis C Antibody Nonreactive Nonreactive [facility] Comment:Antibodies to HCV no t detected; does not exclude early acuteHCV infection. Blood Venous blood specimen / Unknown 05/19/2024 10:50 AM EDT 05/19/2024 11:45 AM EDT us Phylicia Payne MD LAB BLOOD ORDERABLES Final Resul t Performing Organization Address City/[facility]/ZIP Co de Phone Number [facility] [address] [place] [address] [phone] from Last 3 Months or Most Recently Relevant to Health Maintenance Insurance MEDIC[place] [address] [place] [id number] Care Teams Rn Provider Relations Relationship Specialty Start Date End Date Phylicia Payne MD [address] [place] [address] PCP - General Family Medicine 09/28/18 Jt Vazquez, PharmD [address] [place] [phone] Pharmacist Internal Medicine 01/26/23
--- OUTSIDE RECORDS SUMMARY | 2025-07-12 12:29 | XMS_ITS | Encounter Summary ---
Author Organization [employer] Address [address] [facility] 7t [place] [address] Care Team Providers Care Senior Account Executive Name Role Phone Phylicia Payne MD Primary Care Provider [phone] Jt Vazquez PharmD Unavailable [phone] Encounter Details Date Type Department Care Team (Late st Contact Info) Description 05/25/2024 Orders Only [facility] [address] [place], [place] [phone] Phylicia Payne MD [address] [place], [place] [phone] Hematuria, unspecified type (Primary Dx); Pyuria; Essential [...] 10:15 AM EDT Office Visit [facility] [address] [place], [place] [phone] Phylicia Payne MD [address] [place], [place] [phone] documented as of this encounter Goals Goal [...] (04/28/2025 9:39 AM EDT) Color Urine Yellow [facility] Appearance Urine Clear [facility] PH 6.5 5.0 - 9.0 [facility] Glucose Urine UA Negative Negative mg/dL [facility] Urine Blood Small (1+)(A) Negative [facility] Specific [place] - Urine 1.015 1.005 - 1.025 [facility] Urine Protein Trace Neg-Trace mg/dL [facility] Urine Ketones Negative Negative mg/dL [facility] Nitrite Urine Negative Negative [facility] Leukocyte Esterase Urine Negative Negative [facility] RBC Urine 6-10(A) 0 - 2 /HPF [facility] Urine WBC 0-5 0 - 5 /HPF [facility] Urine Squamous Epithelial Cell 0-2 0 - 2 /HPF [facility] Urine Bacteria None Seen None Seen [facility] Hyaline Casts, Urine 0-2 0 - 2 /LPF [facility] Urine 04/28/2025 9:39 AM EDT 04/28/2025 11:56 AM EDT Narrative [facility] - 04/28/2025 12:56 PM EDT Urine, Clean Catch us Phylicia Payne MD LAB URINE ORDERABLES Final Resul t Performing Organization Address City/[facility]/ZIP Co de Phone Number [facility] [address] [place] [phone] * (ABNORMAL) Albumin, Random Urine W/Creatinine (04/28/2025 9:39 AM EDT) Creatinine, Urine 129.91 mg/dL [facility] Microalbumin Urine 39.0 mg/L [facility] Microalbum Creatinine Ratio Ur 30.0(H) <30 ug/mg cr [facility] Comment:Albumin/Creatinine R atio Reference Ranges: Normal: < 30 ug/mg creatinine Microalbuminuria: 30 - 300 ug/mg creatinineClinical Albuminuria: > 300 ug/mg creatinine Urine 04/28/2025 9:39 AM EDT 04/28/2025 11:56 AM EDT us Phylicia Payne MD LAB URINE ORDERABLES Final Resul t [facility] [address] [place] [address] [phone] documented in this encounter Visit Diagnoses Diagnosis Hematuria, unspecified type- Primary Pyuria Other nonspecific finding on examination of urine Essential hypertension Unspecified essential hypertension documented in this encounter Additional Health Concerns Assessment Noted Time PHQ-9 Depression Total Score: 0 05/19/20 24 10:03 AM EDT documented as of this encounter Care Teams Senior Account Executive Relationship Specialty Start Date End Date Phylicia Payne MD [address] [place] [phone] PCP - General Family Medicine 09/28/18 Jt Vazquez, ShaiD [address] [place] [phone] Pharmacist Internal Medicine 01/26/23 documented as of this encounter
--- OUTSIDE RECORDS SUMMARY | 2025-07-12 12:29 | XMS_ITS | Encounter Summary ---
Author Organization [employer] Address [address] [facility] 7t [place] [address] Care Team Providers Care Javascript Engineer Name Role Phone Phylicia Payne MD Primary Care Provider [phone] Jt Vazquez PharmD Unavailable [phone] Reason for Visit * Reason Comments Med Refill Encounter Details Date Type Department Care Team ([facility] st Contact Info) Description 02/19/2024 Refill [facility] [address] [place], [place] [phone] Phylicia Payne MD [address] [place], [place] [phone] Dyslipidemia Social History Tobacco Use Types Packs/Day [...] 07/17/2025 10:15 AM EDT Office Visit [facility] [address] [place], [place] [phone] Phylicia Payne MD [address] [place], [place] [phone] documented as of this encounter Goals Goal [...] documented as of this encounter Care Teams Javascript Engineer Relationship Specialty Start Date End Date Phylicia Payne MD [address] [place] [address] [phone] PCP - General Family Medicine 09/28/18 Jt Vazquez, ShaiD [address] [place] [phone] Pharmacist Internal Medicine 01/26/23 documented as of this encounter
--- OUTSIDE RECORDS SUMMARY | 2025-07-12 12:30 | XMS_ITS | Encounter Summary ---
Author Organization [employer] Address 75 [facility] 7t [place] [address] Care Team Providers Care Application Systems Architect Name Role Phone Phylicia Payne MD Primary Care Provider [phone] Jt Vazquez PharmD Unavailable [phone] Encounter Details Date Type Department Care Team (Late st Contact Info) Description 07/07/2025 Telephone [facility] MED[facility]INE [address] [place], [place] [phone] Phylicia Payne MD [address] [place], [place] [phone] Social History Tobacco Use Types Packs/Day Years [...] FYI to PCP - patient discharged from [facility] - Hypertension effective today. Patient has had [...] Description 07/17/2025 10:15 AM EDT Office Visit [facility] MED[facility]INE [address] [place] [address] Phylicia Payne MD [address] [place] [address] documented as of this encounter Goals Goal [...] documented as of this encounter Care Teams Application Systems Architect Relationship Specialty Start Date End Date Phylicia Payne MD [address] [place] [address] PCP - General Family Medicine 09/28/18 Jt Vazquez, ShaiD [address] [place] [address] Pharmacist Internal Medicine 01/26/23 documented as of this encounter
--- OUTSIDE RECORDS SUMMARY | 2025-07-12 12:30 | XMS_ITS | Encounter Summary ---
Author Organization [employer] Address 75 [facility] 7t [place] [address] Care Team Providers Care Java Analyst Name Role Phone Phylicia Payne MD Primary Care Provider [phone] Jt Vazquez PharmD Unavailable [phone] Encounter Details Date Type Department Care Team (Late st Contact Info) Description 07/05/2025 Results Follow-Up [facility] [address] [place], [place] [phone] Haider Davila MD 230 [place] [address] [place] Scrot[place] Social History Tobacco Use Types [...] Description 07/17/2025 10:15 AM EDT Office Visit [facility] [address] [place] [address] Phylicia Payne MD [address] [place] [address] documented as of this encounter Goals Goal [...] documented as of this encounter Care Teams Java Analyst Relationship Specialty Start Date End Date Phylicia Payne MD [address] [place] [address] [phone] PCP - General Family Medicine 09/28/18 Jt Vazquez, Alyce [address] [place] [address] Pharmacist Internal Medicine 01/26/23 documented as of this encounter
--- OUTSIDE RECORDS SUMMARY | 2025-07-12 12:30 | XMS_ITS | Encounter Summary ---
Author Organization [employer] Address 75 [facility] 7t [place] [address] Care Team Providers Care Heat Pump Installer Name Role Phone Phylicia Payne MD Primary Care Provider [phone] Jt Vazquez PharmD Unavailable [phone] Reason for Visit * Reason Comments Med Refill Encounter Details Date Type Department Care Team ([facility] st Contact Info) Description 07/10/2025 Refill [facility] MEDICINE [address] [place], [place] [phone] Phylicia Payne MD 230 [place], [place] [phone] Moderate persistent asthma without complication Social History [...] EDT Office Visit [facility] [address] [place] [address] Phylicia Payne MD [address] [place] [address] documented as of this encounter Goals Goal [...] documented as of this encounter Care Teams Heat Pump Installer Relationship Specialty Start Date End Date Phylicia Payne MD [address] [place] [address] PCP - General Family Medicine 09/28/18 Jt Vazquez, ShaiD [address] [place] [address] Pharmacist Internal Medicine 01/26/23 documented as of this encounter
--- OUTSIDE RECORDS SUMMARY | 2025-07-12 12:30 | XMS_ITS | Encounter Summary ---
Author Organization [employer] Address 75 [facility] 7t [place] [address] Care Team Providers Care Roller Presser Operator Name Role Phone Phylicia Payne MD Primary Care Provider [phone] Jt Vazquez PharmD Unavailable Encounter Details Date Type Department Care Team (Late st Contact Info) Description 03/30/2025 Orders Only [facility] MEDICINE [address] [place], [place] [phone] Phylicia Payne MD 230 [place], [place] [phone] Dyslipidemia Social History Tobacco Use Types Packs/Day [...] Description 07/17/2025 10:15 AM EDT Office Visit [facility] MED[facility]INE [address] [place] [address] Phylicia Payne MD [address] [place] [address] documented as of this encounter Goals Goal [...] documented as of this encounter Care Teams Roller Presser Operator Relationship Specialty Start Date End Date Phylicia Payne MD [address] [place], [place] [phone] PCP - General Family Medicine 09/28/18 Jt Vazquez, Alyce [address] [place] [address] Pharmacist Internal Medicine 01/26/23 documented as of this encounter
--- OUTSIDE RECORDS SUMMARY | 2025-07-12 12:30 | XMS_ITS | Encounter Summary ---
Author Organization [employer] Address 75 [facility] 7t [place] [address] Care Team Providers Care Topographical Field Assistant Name Role Phone Phylicia Payne MD Primary Care Provider [phone] Jt Vazquez PharmD Unavailable [phone] Encounter Details Date Type Department Care Team (Late st Contact Info) Description 06/02/2025 Orders Only [facility] [address] [place] [address] ProviderJanina MD Social History Tobacco Use Types [...] Description 07/17/2025 10:15 AM EDT Office Visit [facility] MEDICINE [address] [place], [place] [phone] Phylicia Payne MD 230 [place], [place] [phone] documented as of this encounter Goals Goal [...] documented as of this encounter Care Teams Topographical Field Assistant Relationship Specialty Start Date End Date Phylicia Payne MD [address] [place] [address] [phone] PCP - General Family Medicine 09/28/18 Jt Vazquez, PharmD 230 [place] [address] Pharmacist Internal Medicine 01/26/23 documented as of this encounter
--- OUTSIDE RECORDS SUMMARY | 2025-07-12 12:30 | XMS_ITS | Encounter Summary ---
Author Organization [employer] Address 75 [facility] 7t [place] [address] Care Team Providers Care Livestock Counter Name Role Phone Phylicia Payne MD Primary Care Provider [phone] Jt Vazquez PharmD Unavailable [phone] Reason for Referral * Imaging (Routine) - Authorized Specialty Diagnoses / Procedures Referred By Contac t Referred To Contact Radiology Diagnoses Renal cyst Procedures CT Abdomen w/ Contrast Phylicia Payne MD [address] [place] [address] Phone: tel: fax: [address] Phone: tel: fax: Referral ID Status Reason Start Date Expiration Date V isits Requested Visits Authorized [id number] Authorized 07/05/2025 07/05/2026 1 1 Encounter Details Date Type Department Care Team (Late st Contact Info) Description 07/05/2025 Orders Only [facility] MEDICINE [address] [place], [place] [phone] Phylicia Payne MD [address] [place], [place] [phone] Renal cyst (Primary Dx) Social History Tobacco [...] 10:15 AM EDT Office Visit [facility] MEDICINE [address] [place] [address] Phylicia Payne MD [address] [place] [address] Scheduled Orders Name Type Priority Associated Diagnoses [...] documented as of this encounter Care Teams Livestock Counter Relationship Specialty Start Date End Date Phylicia Payne MD [address] [place] [address] PCP - General Family Medicine 09/28/18 Jt Vazquez, PharmD [address] [place] [address] Pharmacist Internal Medicine 01/26/23 documented as of this encounter
--- OUTSIDE RECORDS SUMMARY | 2025-07-12 12:30 | XMS_ITS | Encounter Summary ---
Author Organization [employer] Address 75 [facility] 7t [place] [address] Care Team Providers Care Form Setter Metal Road Forms Name Role Phone Phylicia Payne MD Primary Care Provider [phone] Jt Vazquez PharmD Unavailable [phone] Encounter Details Date Type Department Care Team [...] Description 07/17/2025 10:15 AM EDT Office Visit [facility] MEDICINE 230 [place] [address] Phylicia Payne MD [address] [place] [address] documented as of this encounter Goals Goal [...] documented as of this encounter Care Teams Form Setter Metal [address] Forms Relationship Specialty Start Date End Date Phylicia Payne MD [address] [place] [address] PCP - General Family Medicine 09/28/18 Jt Vazquez, PharmD [address] [place] [address] Pharmacist Internal Medicine 01/26/23 documented as of this encounter
--- OUTSIDE RECORDS SUMMARY | 2025-07-12 12:30 | XMS_ITS | Encounter Summary ---
Author Organization [employer] Address 75 [facility] 7[address] [place] [address] Care Team Providers Care Wrecking Mechanic Name Role Phone Phylicia Payne MD Primary Care Provider [phone] Jt Vazquez PharmD Unavailable [phone] Reason for Referral * Consultation (Routine) - Authorized Specialty Diagnoses / Procedures Referred By Breonna shelton Referred To Contact Urology Diagnoses Hematuria, unspecified type Phylicia Payne MD [address] [place] [address] Phone: tel: fax: [facility] Referral ID Status Reason Start Date Expiration Date Visits Requested Visits Authorized [id number] Authorized Specialty Services Required 04/28/2025 04/28/2026 1 1 * Imaging (Routine) - Closed Specialty Diagnoses / Procedures Referred By Breonna shelton Referred To Contact Radiology Diagnoses Hematuria, unspecified type Procedures US BLADDER Phylicia Payne MD [address] [place] [address] Phone: tel: fax: [facility] [address] [place], [place] Phone: tel: fax: Referral ID Status Reason Start Date Expiration Date Visits Re quested Visits Authorized [id number] Closed 04/28/2025 04/28/2026 1 1 * Imaging (Routine) - Closed Specialty Diagnoses / Procedures Referred By Contneno t Referred To Contact Radiology Diagnoses Hematuria, unspecified type Procedures US RENAL BI Phylicia Payne MD [address] [place] [address] Phone: tel: fax: [facility] [address] [place] [address] Phone: tel: fax: Referral ID Status Reason Start Date Expiration Date Visits Re quested Visits Authorized [id number] Closed 04/28/2025 04/28/2026 1 1 Encounter Details Date Type Department Care Team (Late st Contact Info) Description 04/28/2025 Orders Only [facility] MEDICINE [address] [place] [address] Phylicia Payne MD [address] [place] [address] Hematuria, unspecified type (Primary Dx) Social History [...] Description 07/17/2025 10:15 AM EDT Office Visit [facility] MEDICINE [address] [place] [address] Phylicia Payne MD [address] [place] [address] Scheduled Orders Name Type Priority Associated Diagnoses [...] documented as of this encounter Care Teams Wrecking Mechanic Relationship Specialty Start Date End Date Phylicia Payne MD [address] [place] [address] PCP - General Family Medicine 09/28/18 Jt Vazquez, ShaiD [address] [place] [address] Pharmacist Internal Medicine 01/26/23 documented as of this encounter
--- OUTSIDE RECORDS SUMMARY | 2025-07-12 12:30 | XMS_ITS | Encounter Summary ---
Author Organization [employer] Address 75 [facility] 7t [place] [address] Care Team Providers Care Ticket Counter Name Role Phone Phylicia Payne MD Primary Care Provider [phone] Jt Vazquez PharmD Unavailable [phone] Encounter Details Date Type Department Care Team (Late st Contact Info) Description 03/29/[address] [facility] MEDICINE [address] [place], [place] [phone] Phylicia Payne MD 230 [place], [place] [phone] Dyslipidemia (Primary Dx); Dietary counseling; Exercise counseling; [...] 07/17/2025 10:15 AM EDT Office Visit [facility] MEDICINE [address] [place] [address] Phylicia Payne MD [address] [place] [address] Scheduled Orders Name Type Priority Associated Diagnoses [...] documented as of this encounter Care Teams Ticket Counter Relationship Specialty Start Date End Date Phylicia Payne MD [address] [place] [address] PCP - General Family Medicine 09/28/18 Jt Vazquez, PharmD [address] [place] [address] Pharmacist Internal Medicine 01/26/23 documented as of this encounter
--- OUTSIDE RECORDS SUMMARY | 2025-07-12 12:30 | XMS_ITS | Encounter Summary ---
Author Organization [employer] Address 75 [facility] 7t [place] [address] Care Team Providers Care Morning News Anchor Name Role Phone Phylicia Payne MD Primary Care Provider [phone] Jt Vazquez PharmD Unavailable [phone] Encounter Details Date Type Department Care Team (Late st Contact Info) Description 06/19/2025 Orders Only [facility] 230 [place] [address] ProviderJanina MD Social History Tobacco Use Types [...] Description 07/17/2025 10:15 AM EDT Office Visit [facility] MEDICINE 230 [place], [place] [phone] Phylicia Payne MD 230 [place], [place] [phone] documented as of this encounter Goals Goal [...] PM EDT Narrative 07/04/2025 1:36 PM EDT [address] [address] Ultrasound Report Signed Patient: Rodri Yeager MR#: [id number] : 1960 Acct:[id number] Age/Sex: 65 / M ADM Date: 07/04/25 Loc: HO.US Attending Dr: Phylicia Payne MD Ordering Physician: Phylicia Payne MD Date of Service: 07/04/25 Procedure(s): US retroperitoneal comp Accession Number(s): [id number] cc: Phylicia Payne MD Reason for Exam: [...] 07/04/25 1333 DD/ 1241 TD/TT: 07/04/25 1257 Line Dancer: Procedure Note Donotuseinterpreter, Image - 07/04/2025 [place] [address] Ultrasound Report Signed Patient: Rodri Yeager LMR#: [id number] : 2Acct:[id number] Age/Sex: 65 / MADM Date: 07/04/25 Loc: HO.US Attending Dr: Phylicia Payne MD Ordering Physician: Phylicia Payne MD Date of Service: 07/04/25 Procedure(s): US retroperitoneal comp Accession Number(s): [id number] cc: Phylicia Panye MD Reason for Exam: HEMATURIA EXAMINATION: US [...] 07/04/25 1333 DD/ 1241 TD/TT: 07/04/25 1257 Line Dancer: Phylicia Payne MD [facility] US PROCEDURES Final Result * Anatomic Pathology Outreach (05/25/2025 11:39 AM EDT) Tissue Historical Provider LAB PATHOLOGY ORDERABLES Final Result documented in this encounter Visit Diagnoses Not on filedocumented in this encounter Additional Health Concerns Assessment Noted Time PHQ-9 Depression Total Score: 0 03/29/20 25 10:48 AM EDT documented as of this encounter Care Teams Morning News Anchor Relationship Specialty Start Date End Date Phylicia Payne MD [address] [place] [address] PCP - General Family Medicine 09/28/18 Jt Vazquez, ShaiD [address] [place] [address] Pharmacist Internal Medicine 01/26/23 documented as of this encounter
--- OUTSIDE RECORDS SUMMARY | 2025-07-12 12:30 | XMS_ITS | Encounter Summary ---
Author Organization [employer] Address 75 [facility] 7t [place] [address] Care Team Providers Care Manager Appointment Name Role Phone Phylicia Payne MD Primary Care Provider [phone] Jt Vazquez PharmD Unavailable [phone] Reason for Visit * Reason Comments Med Refill Encounter Details Date Type Department Care Team ([facility] st Contact Info) Description 07/10/2025 Refill [facility] MEDICINE [address] [place], [place] [phone] Phylicia Payne MD [address] [place], [place] [phone] Moderate persistent asthma without complication Social History [...] Description 07/17/2025 10:15 AM EDT Office Visit [facility] MEDICINE [address] [place] [address] Phyliica Payne MD [address] [place] [address] documented as of this encounter Goals Goal [...] as of this encounter Care Teams Manager Appointment Relationship Specialty Start Date End Date Phylicia Payne MD [address] [place] [address] PCP - General Family Medicine 09/28/18 Jt Vazquez, ShaiD [address] [place] [address] Pharmacist Internal Medicine 01/26/23 documented as of this encounter
== END 2025-07-12 11:07 | disposition home or self-care (01) ==
LOC: HO.HUSH 10:32
PROVIDERS: PCP Family Medicine; Visit Provider Nurse Practitioner Family
DX: N20.0 Calculus of kidney (principal); N28.1 Cyst of kidney, acquired; N43.3 Hydrocele, unspecified; N50.3 Cyst of epididymis; R10.A0 Flank pain, unspecified side
CPT/HCPCS: 99203

== ENCOUNTER → 2025-07-12 10:31 | Outpatient (BNVA) | payer MEDICARE, SELFPAY | PROVIDERS: PCP Family Medicine; Visit Provider Nurse Practitioner Family | DX: N20.0 Calculus of kidney (principal); N28.1 Cyst of kidney, acquired; N43.3 Hydrocele, unspecified; N50.3 Cyst of epididymis; R10.A0 Flank pain, unspecified side | CPT/HCPCS: 99202 ==